=== PATIENT | male | born 1975 | race Caucasian/White ===

== ENCOUNTER 2017-03-30 18:29 | Inpatient (IN) | payer MEDICARE, MEDICAID ==
[~2017-03-30] VITALS: Ht 175.3 cm; Wt 123.2 kg
[~2017-03-30 18:29] MED LIST: ASPI325T OR; GLUC850T OR; K-TA10TA OR; LASI20TA OR; ZOCO5TAB OR; ZOLO100T OR
[2017-03-30 22:14] LABS: MEAN CORPUSCULAR HGB CONC 34.5 g/dl (32.0-36.5); MEAN CORPUSCULAR VOLUME 98.7 fl (80.0-96.0); RED CELL DISTRIBUTION WIDTH 11.8 % (11.5-14.5); WHITE BLOOD COUNT 5.5 K/mm3 (4.0-10.0)
[2017-03-30 22:32] LABS: ALBUMIN/GLOBULIN RATIO 1.48 (1.00-1.93); ALKALINE PHOSPHATASE 50 U/L (45-117); ALT/SGPT 21 U/L (12-78); ANION GAP 7 MEQ/L (8-16); AST/SGOT 12 U/L (15-37); BILIRUBIN,DIRECT 0.1 MG/DL (0.0-0.2); BILIRUBIN,TOTAL 0.5 MG/DL (0.2-1.0); BLOOD UREA NITROGEN 12 MG/DL (7-18); CALCIUM LEVEL 8.9 MG/DL (8.5-10.1); CARBON DIOXIDE LEVEL 29 MEQ/L (21-32); CHLORIDE LEVEL 107 MEQ/L (98-107); CREATININE FOR GFR 0.96 MG/DL (0.70-1.30); GLOMERULAR FILTRATION RATE > 60.0 (>60); GLUCOSE, FASTING 82 MG/DL (70-105); METHADONE URINE NEGATIVE (NEGATIVE); POTASSIUM SERUM 3.8 MEQ/L (3.5-5.1); SODIUM LEVEL 143 MEQ/L (136-145); TOTAL PROTEIN 6.7 GM/DL (6.4-8.2)
[2017-03-30 23:32] VITALS: BP 145/76
[2017-03-31] MEDS ORDERED: MOM 30ML SUSPENSION UDC PO PRN (00:15)
[2017-03-31] MEDS ORDERED: traZODone 50 MG TAB PO PRN (00:15)
[2017-03-31] MEDS ORDERED: MAALOX 30 ML SUSP *UDC PO PRN (00:15)
[2017-03-31 06:44] VITALS: BP 135/79
[2017-03-31] MEDS ORDERED: ALBUTEROL 90 MCG/ACT 8GM HFA INHALER INH PRN (08:30)
[2017-03-31] MEDS ORDERED: SERTRALINE HCL 50 MG TAB PO SCH (09:00)
--- NOTE | 2017-03-31 09:01 | HPEPDOC ---
Medical History and Physical Date of Admission Mar 30, 2017 at 22:45 History and Physical PCP: Alex GARCIA ATTENDING: Dr. Jung Morrison HPI:41yoM admitted to [facility] for Unspecified depressive disorder, being medically examined today. No acute medical complaints today. Denies any fevers, chills, weakness, fatigue, BARRIOS, CP, SOB, cough, palpitations, abdominal pain, N/V/D or changes in bowel or bladder habits. PMHx: Mood disorder anxiety depression H/O obesity with h/o weight loss BMI 36.8 H/O HTN improved with wt loss H/O DM2 improved with wt loss PSHX: upper teeth removed SOCHX: Resides in: [place] Marital Status: single Kids: none Employment: unemployed Tobacco use: denies ETOH: H/O alcohol use, states quit 1995 Illicit Drugs: H/O Xanax use, states quit 1995 IV Drug Use: Denies Tattoos done unprofessionally: Denies FAMHX: Mother: brain aneurysm Father: leukemia Siblings: 2 brothers, 1 sister Alive, h/o Cerebral palsy, HTN, DM. 1 brother Colon Ca. Children: none Unexpected deaths due to medical reasons: None. ROS: As noted in HPI, otherwise 11pt ROS of systems reviewed and remarkable only for rash Pt states in armani area, reports itching. PE: GEN: 41yoM, appears stated age. Well-nourished, well developed. No acute distress. Alert and oriented x 3. Pleasant, interactive. HEENT: Normocephalic, atraumatic. Pupils are equal, round, and reactive to light. Extraocular movements are intact. No nystagmus appreciated. Sclera are nonicteric. Conjunctiva without injection. Nose midline. Nasal turbinates without bogginess. EACs both patent BL. TMs both visualized and [place] with good cone of light, no bulging or erythema. No facial asymmetry. Moist mucous membranes. Dentition poor, upper teeth removed. Pharynx pink and moist, no cobblestoning. Neck supple, trachea midline. No lymphadenopathy or thyromegaly appreciated. CHEST: Regular rate and rhythm, +S1, +S2 LUNGS: Clear to auscultation bilaterally. No wheezes, rales, or rhonchi. Breathing appears symmetric and easy. Patient is speaking in full sentences. No accessory muscle use. ABD: Round, soft, non-tender, non-distended. +Bowel sounds throughout. No rebound or guarding. No costovertebral angle tenderness. EXT: Pulses 2+ bilaterally dorsalis pedis and radial. No lower extremity edema appreciated. SKIN: [place], dry, warm. Capillary refill <2sec. No rash or erythema in groin area noted, Pt c/o itching. NEURO: Alert and oriented x 3. Cranial nerves III-XII are intact. No focal deficits appreciated. EKG: pending. A&P: 41yoM admitted to [facility] for Unspecified depressive disorder 1. Psych. Plan per Psychiatry. Obtain baseline EKG to assure the safety of psychiatric medications as they can prolong the QT interval. 2. H/O HTN. No meds as outpt since wt loss. BP 135/79 this AM. Monitor. 3. H/O DM2. Diet controlled and improved after wt loss. FBS 82. A1c 01/20 11/07. Will update. 4. Follow up with PCP on discharge. 5. H/O Wt loss. BMI noted to be 36.8. Continue diet. 6. H/O Asthma. Albuterol 2 inhalations Q4prn. 7. Elevated TSH. Check TFTs. 8. Dermatophytosis groin. Apply nystatin powder BID as needed. 9. Antonio senior safety support manager present throughout exam. Vital Signs Vital Signs Date Time Temp Pulse Resp B/P (MAP) Pulse Ox O2 Delivery O2 Flow Rate FiO2 03/31/17 06:44 96.4 79 18 135/79 (97) 03/30/17 23:32 Room Air 03/30/17 23:16 97 Laboratory Data Labs 24H Laboratory Tests 2 03/30/17 20:27: Anion Gap 7L, Glomerular Filtration Rate > 60.0, Calcium Level 8.9, Aspartate Amino Transf (AST/SGOT) 12L, Alanine Aminotransferase (ALT/SGPT) 21, Alkaline Phosphatase 50, Total Bilirubin 0.5, Direct Bilirubin 0.1, Total Protein 6.7, Albumin 4.0, Albumin/Globulin Ratio 1.48, Thyroid Stimulating Hormone (TSH) 7.850H, Salicylates Level < 1.7L, Urine Amphetamines Screen NEGATIVE, Urine Benzodiazepines Screen NEGATIVE, Urine Opiates Screen NEGATIVE, Urine Methadone Screen NEGATIVE, Acetaminophen Level < 2.0L, Urine Barbiturates Screen NEGATIVE , Urine Phencyclidine Screen NEGATIVE, Urine Cocaine Metabolite Screen NEGATIVE , Urine Cannabinoids Screen NEGATIVE, Ethyl Alcohol Level 0.003 CBC/BMP Laboratory Tests 03/30/17 20:27 Red Blood Count 4.70, Mean Corpuscular Volume 98.7 H, Mean Corpuscular Hemoglobin 34.0 H, Mean Corpuscular Hemoglobin Concent 34.5, Red Cell Distribution Width 11.8 Home Medications No Active Prescriptions or Reported Meds Allergies Coded Allergies: No Known Allergies (Verified Allergy, 04/17/12) Chantell Degroot Mar 31, 2017 09:01
[2017-03-31] MEDS ORDERED: traZODone 100 MG TAB PO PRN (10:15)
[2017-03-31] MEDS: CitaloPRAM (CeleXA) 20 MG TAB PO SCH (10:31)
[2017-03-31] MEDS: NYSTATIN 100,000 UNITS/GM TOPICAL PWD 15 GM TOP SCH ×2 (10:31→21:00)
--- NOTE | 2017-03-31 11:21 | MHHPEPDOC ---
[facility] History & Physical History and Physical DATE OF ADMISSION: Mar 30, 2017 at 22:45 LEGAL STATUS AT ADMISSION: [facility] CHIEF COMPLAINT: "I need help and I want to get this resolved". HISTORY OF THE PRESENT ILLNESS: Patient is a 41-year-old male, who presented to the ED with complaint of increasing depression and "feeling like I'm going to have a nervous breakdown". Pt was previously a patient on [facility] in 2011. He missed several appointments and has been lost to follow up as an outpatient. He also was connected with Case Mgt Services through [facility] and has Crystal assignmed to him. He spends a month or 2 out of town on occasion and he has lost the services also. Pt made 1 previous suicide attempt in 2011 by hanging. His girlfriend at the time helped him out and was able to convince him to come to the hospital for help. Pt identifies the of his parents and especially the loss () of his brother Navi as main stressors in his life. He and Navi lived together. Navi from Cancer about 7 years ago. Bucky has neer . He has a sister and 2 brothers in the area. He has a cousin Kady who convinced him to come in for treatment this time. He identifies knowing many people in [place] and the surrounding area and has a number of friends and people he spends time with. Bucky was in Special Education when he attended public school. He completed High School by obtaining an "Independent Diploma" from [employer]. He was employed from 1998- 2000 at [employer] but "my anger issues got me fired. If I had not cursed out the boss I could still be there today." He has an apartment on [address] and lives with his 2 small dogs. Recently Bucky had a run in with the law for shoplifting at [employer]. He had a public health officer who got him a deal but Bucky did not agree with the deal since it involved going for drug treatment and Bucky was not using drugs. He admits to a previous h/o abusing alcohol and "pills". His brother Navi sough him through withdrawal from Alcohol and Bucky has not had any since 1995. He had a spiritual conversion at that time again, with his brother's help. PSYCHIATRIC REVIEW OF SYSTEMS: Affective: constricted. Anxiety: mild. Trauma: denies. Psychosis: not illicited or observed Personally: cooperative. PAST PSYCHIATRIC HISTORY: Prior Psychiatric Disorder: [facility] 2011, would like to have follow up at [facility] now as he lives in [place], pt does not want individual therapy unless it is with the psychiatrist. Admission to [facility] for depression with SI in 2011. Outpatient Treatment: as above, also [facility] case management, pt wants to continue to live independently Suicidal/Self injurious: no self-mutilation, 1 attempt at suicide by hanging 5 years ago. Psychotropic Medication History: sertraline 100 mg not effective, Trazodone 100 mg, effective ALLERGIES: Please see below. [facility] FAMILY PSYCHIATRIC HISTORY: cousin Nahum committed suicide by shotgun in 1992. Brother Navi had depression. Denies family h/o bipolar disorder, schizophrenia , anxiety or PTSD. SOCIAL HISTORY: Early Relations/development: raised by mom and dad and lived with 5 siblings, 1 has CP and is confined to a wheelchair, 1 brother due to cancer. Sibling order: Bucky is the youngest. Paternal relationships: . Education: (special ed) Occupational: unemployed. Legal: misdemeanor charges pending due to shoplifting from [employer]. Martial: single, never . Economic: unclear how he supports himself. Supports: brothers, cousin, friends. Abuse/trauma: denies. SUBSTANCE ABUSE HISTORY: pt used to consume alcohol but quit in 1995. PAST MEDICAL/SURGICAL HISTORY: pt is reporting decreased hearing in right ear weight loss of 318 lbs several years ago previously on medication for DMT2 and HTN which resolved after weight loss VITAL SIGNS: Temperature 96.4, pulse 79, respiratory rate 18, blood pressure 135 /79. MENTAL STATUS EXAMINATION: General appearance: Patient is a 41-year old male, who is bearded, medium frame , in hospital attire, dissheveled, good eye contact, cooperative. Speech: low tone and mumbles at time, can be hard to understand, spontaneous Thought processes: goal directed Thought content: appropriate Abstract reasoning and computation: concrete. Description of associations: good. Description of abnormal or psychotic thoughts: no formal thought disorder. no delusions, paranoia or obsessions, denies voices and visions. Does not have SI but was having it before admission. Judgment: fair Insight: fair Orientation: oriented x 4 Recent and remote memory: grossly intact Attention span and concentration: good. Fund of knowledge: below average. Mood: depressed Affect: constricted DIAGNOSES: Major Depressive disorder, severe, recurrent, without psychotic features. Alcohol abuse by history History of medication non-compliance r/o Grief/Bereavement ASSESSMENT: Bucky was seen in 1:1 for the purpose of completing H & P. He is assigned to my colleague, Tonia Casiano APN, who is out of the office today. He presents with flat, constricted affect, monotone voice, some sleep problems, mainly latent onset. He is reporting a depressed mood over many months , perhaps years. He was prescribed sertraline but is no longer on the medication. He has been dropped from outpatient services due to missing appointments. He appears very motivated at this time to receive treatment and to participate in outpatient med mgt. Pt did make 1 suicide attempt by hanging and his cousin completed suicide. His parents and his older brother are . He has 2 brothers who are twins and a sister in the [place] area. He has lived here all his life. It is apparent after speaking to him for a short time that he has cognitive deficits. Memory is good but his ability to problem solve is a short coming. He admits to having problems with anger and this has gotten him into trouble in the past by arguing with others and even got him fired from a good job. He would benefit from the therapeutic milieu here and though reluctant, he was asked to attend 1 a.m. and 1 p.m. group each day and listen before deciding the groups were of no use to him. He stated he remained in his room the entire time he was here in 2011 ( which was 2 days). Pt was informed that medication can only improve 50 % of his symptoms, but coping skills and talk therapy can bring improvement up closer to 100%. Pt did not want to restart Zoloft stating he believed his depression got worse on that medication. We will start Celexa 20 mg po in a.m. Pt received medication education to include risks and benefits, expected side effects of GI distress and expected duration of 7-10 days. Pt told to report any rash or SOB as he begins therapy with Celexa. Pt informed medication may take 4 weeks or longer to become effective and that is why the environment here and the groups are helpful when feeling depressed. PROBLEM LIST: 1. risk for suicide 2. Depression 3. ineffective coping INITIAL TREATMENT PLAN: 1. Patient was admitted on a Voluntary status. 2. Complete history was obtained. 3. With patients permission, family will be contacted and database will be expanded. 4. Patients medication regimen will be reviewed and changed accordingly. 5. Patient will be provided with protected environment. 6. Patient will be treated with individual, group, and milieu therapies. 7. Patient will receive supportive psych-education. 8. Discharge planning will commence immediately. 9. Outpatient follow-up treatment will be strongly recommended. 10. The initial treatment plan will focus initially on: * Depression. * Risk for suicide. * ineffective coping ESTIMATED LENGTH OF STAY: 7-10 DAYS. TIME SPENT COUNSELING AND COORDINATING INITIAL CARE: 60 minutes. Laboratory Data 24H Labs Laboratory Tests 2 03/30/17 20:27: Anion Gap 7L, Glomerular Filtration Rate > 60.0, Calcium Level 8.9, Aspartate Amino Transf (AST/SGOT) 12L, Alanine Aminotransferase (ALT/SGPT) 21, Alkaline Phosphatase 50, Total Bilirubin 0.5, Direct Bilirubin 0.1, Total Protein 6.7, Albumin 4.0, Albumin/Globulin Ratio 1.48, Thyroid Stimulating Hormone (TSH) 7.850H, Salicylates Level < 1.7L, Urine Amphetamines Screen NEGATIVE, Urine Benzodiazepines Screen NEGATIVE, Urine Opiates Screen NEGATIVE, Urine Methadone Screen NEGATIVE, Acetaminophen Level < 2.0L, Urine Barbiturates Screen NEGATIVE , Urine Phencyclidine Screen NEGATIVE, Urine Cocaine Metabolite Screen NEGATIVE , Urine Cannabinoids Screen NEGATIVE, Ethyl Alcohol Level 0.003 CBC/BMP Laboratory Tests 03/30/17 20:27 Red Blood Count 4.70, Mean Corpuscular Volume 98.7 H, Mean Corpuscular Hemoglobin 34.0 H, Mean Corpuscular Hemoglobin Concent 34.5, Red Cell Distribution Width 11.8 Medications No Active Prescriptions or Reported Meds Allergies Coded Allergies: No Known Allergies (Verified Allergy, 04/17/12) Leeann Nath Mar 31, 2017 11:21
--- NOTE | 2017-03-31 14:59 | ECGEPIP ---
Stationary ECG Study [facility] Test Date: 2017-03-31 Pat Name: DARLENE SZYMANSKI Department: Room: [place] [address] Gender: M Mail Sorting Supervisor: : 1975 Requested By: Chantell Degroot Order Number: [id number] Reading MD: Jung Tolliver Measurements Intervals [place] Rate: 77 P: 71 LA: 140 QRS: 40 QRSD: 94 T: 50 QT: 385 QTc: 437 Interpretive Statements SINUS RHYTHM Early repolarization. No prior ECG available for comparison at the time of interpretation. Electronically Signed On 03-31-2017 14:59:43 EDT by Jung Tolliver
[2017-03-31] MEDS: ACETAMINOPHEN TAB 650MG DOSE (2X325MG) PO PRN (15:01)
[2017-03-31 18:00] VITALS: BP 118/63
[2017-04-01 06:28] VITALS: BP 128/77
[2017-04-01 07:20] LABS: THYROXINE (T4) 7.9 UG/DL (4.5-12.0)
[2017-04-01] MEDS: CitaloPRAM (CeleXA) 20 MG TAB PO SCH (08:50)
[2017-04-01] MEDS: NYSTATIN 100,000 UNITS/GM TOPICAL PWD 15 GM TOP SCH ×2 (08:51→20:39)
[2017-04-01 18:00] VITALS: BP 115/73
--- NOTE | 2017-04-01 18:36 | MHIPNPDOC ---
[facility] Progress Note Progress Note DATE OF SERVICE: 04/01/17 HISTORY: Patient is a 41-year-old male who presented to the ED with complaint of increasing depression and "feeling like I'm going to have a nervous breakdown ". Pt was previously a patient on [facility] in 2011. He missed several appointments and was not compliant with outpatient treatment. Patient has reportedly been receiving case management services through [facility], notes he spends a month or 2 out of town on occasion and he has lost the services also. Pt made 1 previous suicide attempt in 2011 by hanging. Pt identifies the of his parents and especially the loss () of his brother Navi as main stressors in his life, Navi from Cancer about 7 years ago. Patient has taken Zoloft in the past, indicates medication exacerbated symptoms of depression, admitted to vice president of compliance that he has had challenges controlling anger in the past, denies experiencing at present. Patient has history of medication and treatment noncompliance. Stonemason Supervisor met with patient today to assess treatment progress on inpatient unit. Patient was recently started on Celexa which he indicates he believes is helping to reduce symptoms of anxiety and depression, rates current anxiety level as 6/10, depression 7/10, attributes symptoms to his brother recently hanging up on him and feeling "alone and isolated." Patient states he also continues to grieve the deaths of his father and brother. Patient states he took Zoloft in the past which she feels worsened his symptoms, denies medication side effects on Celexa. Patient states he is been sleeping well with trazodone, notes he has taken trazodone in the past, is requesting dose decrease today noting "100 milligrams is too much, it makes me feel a little high." Patient has been visible, states he is eating well, reports improvement in energy level and concentration and focus. Patient denies symptoms of physical pain and presents with no signs of acute distress at time of interaction. VITALS: See below NEW TEST RESULTS: 04/01/17 TSH elevated, free T4, T4, and T3 uptake within normal limits MEDICAL/SURGICAL HISTORY: History of obesity with history of weight loss, history of hypertension proved with weight loss, history of diabetes mellitus to improved with weight loss, history of asthma, upper teeth removed. Patient denies history of seizure or head injury. Patient reports decreased hearing to right ear. Labs on admission indicated elevated MCV, MCH, TSH and low anion gap, AST UDS negative 03/31/17 EKG sinus rhythm early repolarization no prior ECG available for comparison at time of interpretation. Clinical consultation soft with recommendation made for follow-up with outpatient provider, patient is asymptomatic. CURRENT MEDICATIONS: See below MENTAL STATUS EXAMINATION: General appearance: Patient is a 41-year old male, who is engageable, cooperative, makes poor eye contact, is disheveled, dressed in hospital clothing , ambulates with steady gait, appears stated age. Speech: Of normal rate and rhythm, low volume, spontaneous, difficult to understand at times Thought processes: Linear, logical, goal directed Thought content: Rational, logical, no tangentiality or paranoia noted, no perseveration Abstract reasoning and computation: Appears intact Description of associations: Intact Description of abnormal or psychotic thoughts: Patient denies suicidal and homicidal ideation, denies auditory or visual hallucinations, does not appear to be responding to internal stimuli, does not endorse bizarre or paranoid ideation, and denies preoccupation with violence or obsessions. Judgment: Poor Insight: Poor Orientation: A and O 3 Recent and remote memory: Appears intact Attention span and concentration: Within normal limits Fund of knowledge: below average, classified special ed with IEP. Mood: "I just feel bad, sad, my brother hung up on me." Patient appears anxious and depressed, no mood lability noted Affect: Blunted, congruent with mood DIAGNOSES: Major Depressive disorder, severe, recurrent, without psychotic features, rule out adjustment disorder. Alcohol use disorder by history, rule out polysubstance use disorder. Neurodevelopmental disorder. ASSESSMENT: Patient appears to be adjusting to unit, has been visible, engaging selectively, cooperative with staff, participating in groups, and has presented with no behavior management challenges. Patient has been started on Celexa and indicates medication may be helping to reduce symptoms of anxiety and depression , makes request for trazodone dose reduction due to feeling "high" on trazodone at current dose, has taken trazodone in the past and states medication works well for insomnia. Patient denies other medication side effects. Patient denies current suicidal or homicidal ideation and verbalizes awareness of how to access supportive services on the unit if needed. Patient states when prepared for discharge he would like to return home to his apartment, is refusing [facility] or other supportive housing. Patient also has APS worker and notes he has family and friends who are supportive in the area. Patient had been receiving case management and outpatient services through [facility], informs selling underwriter today he wants to be referred to a different facility at time of discharge. group sales coordinator is attempting to access background treatment information to ensure good continuity care and safe discharge planning. MANAGEMENT PLAN: Reduce trazodone to 50 mg po hs PRN insomnia. Continue Celexa 20 mg po q am Maintain safety precautions Patient to attend groups and participate in unit programming to develop coping strategies Engage patient in discharge planning process and arrange meeting with support system to ensure safe discharge planning when appropriate Patient to follow up with PCM upon discharge TIME SPENT: 35 minutes. Vital Signs Vital Signs Date Time Temp Pulse Resp B/P (MAP) Pulse Ox O2 Delivery O2 Flow Rate FiO2 04/01/17 06:28 98.1 85 18 128/77 (94) 03/30/17 23:32 Room Air 03/30/17 23:16 97 Laboratory Data 24H Labs Laboratory Tests 2 04/01/17 06:29: Estimated Mean Plasma Glucose 103, Hemoglobin A1c 5.2, Thyroid Stimulating Hormone (TSH) 4.030H, Free Thyroxine Index 2.7, Thyroxine (T4) 7.9, Triiodothyronine (T3) Uptake 34 Current Medications Current Medications Acetaminophen (Tylenol Tab) 650 mg Q6HP PRN PO HEADACHE or DISCOMFORT Last administered on 03/31/17 15:01; Start 03/31/17 at 00:15; Stop 04/30/17 at 00:14 Al Hydrox/Mg Hydrox/Simethicone (Mylanta) 30 ml Q4HP PRN PO HEARTBURN/ INDIGESTION; Start 03/31/17 at 00:15; Stop 04/30/17 at 00:14 Albuterol Sulfate (Proventil, Ventolin Hfa) 2 puff Q4HP PRN INH SHORTNESS OF BREATH; Start 03/31/17 at 08:30; Stop 04/30/17 at 08:29 Citalopram Hydrobromide (CeleXA) 20 mg QAM PO Last administered on 04/01/17 08 :50; Start 03/31/17 at 09:00; Stop 04/30/17 at 08:59 Home Med (Med Rec Complete!) ASDIRECTED XX ; Start 03/30/17 at 22:30; Stop at 22:30; Status DC Magnesium Hydroxide (Milk Of Magnesia) 30 ml DAILYPRN PRN PO CONSTIPATION; Start 03/31/17 at 00:15; Stop 04/30/17 at 00:14 Nystatin (Mycostatin Powder, Nystop) 1 dose BID TOP Last administered on 08:51; Start 03/31/17 at 09:00; Stop 04/30/17 at 08:59 Sertraline HCl (Zoloft) 50 mg QAM PO ; Start 03/31/17 at 09:00; Stop 04/30/17 at 08:59; Status Cancel Trazodone HCl (Desyrel) 50 mg QHSP PRN PO INSOMNIA; Start 03/31/17 at 00:15; Stop 04/30/17 at 00:14; Status Cancel Trazodone HCl (Desyrel) 100 mg QHS PRN PO INSOMNIA Last administered on 22:30; Start 03/31/17 at 10:15; Stop 04/30/17 at 10:14 Allergies Coded Allergies: No Known Allergies (Verified Allergy, 04/17/12) Tonia Casiano Apr 01, 2017 18:36
[2017-04-01] MEDS: ACETAMINOPHEN TAB 650MG DOSE (2X325MG) PO PRN (21:29)
[2017-04-01] MEDS: traZODone 50 MG TAB PO PRN (22:51)
[2017-04-02 06:25] VITALS: BP 112/56
[2017-04-02] MEDS: NYSTATIN 100,000 UNITS/GM TOPICAL PWD 15 GM TOP SCH ×2 (09:00→21:00)
[2017-04-02] MEDS: CitaloPRAM (CeleXA) 20 MG TAB PO SCH (09:12)
[2017-04-02] MEDS: ACETAMINOPHEN TAB 650MG DOSE (2X325MG) PO PRN (09:12)
--- NOTE | 2017-04-02 09:26 | MHIPNPDOC ---
[facility] Progress Note Progress Note DATE OF SERVICE: 04/02/17 HISTORY: Patient is a 41-year-old male who presented to the ED with complaint of increasing depression and "feeling like I'm going to have a nervous breakdown ". Pt was previously a patient on [facility] in 2011. He missed several appointments and was not compliant with outpatient treatment. Patient has reportedly been receiving case management services through [facility], notes he spends a month or 2 out of town on occasion and he has lost the services also. Pt made 1 previous suicide attempt in 2011 by hanging. Pt identifies the of his parents and especially the loss () of his brother Navi as main stressors in his life, Navi from Cancer about 7 years ago. Patient has taken Zoloft in the past, indicates medication exacerbated symptoms of depression, admitted to general duty nurse that he has had challenges controlling anger in the past, denies experiencing at present. Patient has history of medication and treatment noncompliance. Teachers Aide met with patient today to assess treatment progress on inpatient unit. Patient recently started on Celexa which he indicates he believes is helping to reduce symptoms of anxiety and depression, rates current anxiety level as 6/10, depression 8/10, attributes symptoms to his legal problems stating, "I got caught," minimizes behavior and events which led to legal problems and informs mortgage loan underwriter that he feels his legal charges were handled unfairly. Patient reiterates today he took Zoloft in the past which was ineffective, denies medication side effects on Celexa. Patient makes requests today for PRN anxiolytic to address intermittent symptoms of anxiety, indicates recent dose reduction to trazodone has eliminated side effect of medication and is effective. Patient denies medication side effects. Patient states he continues to sleep well with trazodone, denies nightmares symptoms. Patient remains visible, states he is eating well, indicates his energy level and concentration and focus are reduce today. Patient presents with no signs of acute distress at time of interaction. VITALS: See below NEW TEST RESULTS: 04/02/17 repeat labs indicated elevated MCV, MCH, carbon dioxide, and chloride and low anion gap, AST, and total bilirubin MEDICAL/SURGICAL HISTORY: History of obesity with history of weight loss, history of hypertension proved with weight loss, history of diabetes mellitus to improved with weight loss, history of asthma, upper teeth removed. Patient denies history of seizure or head injury. Patient reports decreased hearing to right ear. Labs on admission indicated elevated MCV, MCH, TSH and low anion gap, AST UDS negative 03/31/17 EKG sinus rhythm early repolarization no prior ECG available for comparison at time of interpretation. Clinical consultation soft with recommendation made for follow-up with outpatient provider, patient is asymptomatic. 04/02/17 vascular ultrasound - No evidence of deep venous thrombosis of the bilateral lower extremity femoral popliteal venous system. Completed due to LE pain reported by patient, PA is monitoring. CURRENT MEDICATIONS: See below MENTAL STATUS EXAMINATION: General appearance: Patient is a 41-year old male, who is engageable, cooperative, makes limited eye contact, remains disheveled, dressed in hospital clothing, ambulates with steady gait, appears stated age. Speech: Of normal rate and rhythm, low volume, spontaneous, mumbles and is difficult to understand at times Thought processes: Linear, logical, goal directed Thought content: Rational, logical, no tangentiality or paranoia noted, no perseveration Abstract reasoning and computation: Appears intact Description of associations: Intact Description of abnormal or psychotic thoughts: Patient denies suicidal and homicidal ideation, denies auditory or visual hallucinations, does not appear to be responding to internal stimuli, does not endorse bizarre or paranoid ideation, and denies preoccupation with violence or obsessions. Judgment: Poor Insight: Poor Orientation: A and O 3 Recent and remote memory: Appears intact Attention span and concentration: Within normal limits Fund of knowledge: below average, classified special ed with IEP. Mood: "I just feel sad sometimes, I'm not really sure why. I think I discharge to soon the last time I was here." Patient appears anxious and depressed, no mood lability noted Affect: Blunted, congruent with mood DIAGNOSES: Major Depressive disorder, severe, recurrent, without psychotic features, rule out adjustment disorder. Alcohol use disorder by history, rule out polysubstance use disorder. Neurodevelopmental disorder. ASSESSMENT: Patient appears to be adjusting to unit, has been visible, engaging selectively, cooperative with staff, participating in groups, and has presented with no behavior management challenges. Patient is observed to be interacting with peers at times, is isolative at other times. Patient reiterates today he stopped taking psychotropic medications approximately 2 years ago, has been started on Celexa and indicates medication may be helping to reduce symptoms of anxiety and depression, indicates trazodone at current dose is effective, makes request for PRN anxiolytic in effort to reduce intermittent symptoms of anxiety. Patient denies medication side effects. Patient denies current suicidal or homicidal ideation and verbalizes awareness of how to access supportive services on the unit if needed. Patient states when prepared for discharge he may stay with cousin for period of time, notes would eventually like to return home to his apartment, is refusing TLS or other supportive housing. Patient also has APS worker and notes he has family and friends who are supportive in the area. Patient had been receiving case management and outpatient services through [facility]. regional sales coordinator continues to attempt to coordinate discharge needs with outpatient providers to ensure good continuity care and safe discharge planning. MANAGEMENT PLAN: Continue trazodone 50 mg po hs PRN insomnia and Celexa 20 mg po q am. Initiate hydroxyzine 50 mg po q 6 hours PRN for anxiety. Maintain safety precautions Patient to attend groups and participate in unit programming to develop coping strategies Engage patient in discharge planning process and arrange meeting with support system to ensure safe discharge planning when appropriate Patient to follow up with PCM upon discharge TIME SPENT: 35 minutes. Vital Signs Vital Signs Date Time Temp Pulse Resp B/P (MAP) Pulse Ox O2 Delivery O2 Flow Rate FiO2 04/02/17 06:25 98.4 101 16 112/56 (74) 03/30/17 23:32 Room Air 03/30/17 23:16 97 Current Medications Current Medications Acetaminophen (Tylenol Tab) 650 mg Q6HP PRN PO HEADACHE or DISCOMFORT Last administered on 04/02/17 09:12; Start 03/31/17 at 00:15; Stop 04/30/17 at 00:14 Al Hydrox/Mg Hydrox/Simethicone (Mylanta) 30 ml Q4HP PRN PO HEARTBURN/ INDIGESTION; Start 03/31/17 at 00:15; Stop 04/30/17 at 00:14 Albuterol Sulfate (Proventil, Ventolin Hfa) 2 puff Q4HP PRN INH SHORTNESS OF BREATH; Start 03/31/17 at 08:30; Stop 04/30/17 at 08:29 Citalopram Hydrobromide (CeleXA) 20 mg QAM PO Last administered on 04/02/17 09 :12; Start 03/31/17 at 09:00; Stop 04/30/17 at 08:59 Home Med (Med Rec Complete!) ASDIRECTED XX ; Start 03/30/17 at 22:30; Stop at 22:30; Status DC Magnesium Hydroxide (Milk Of Magnesia) 30 ml DAILYPRN PRN PO CONSTIPATION; Start 03/31/17 at 00:15; Stop 04/30/17 at 00:14 Nystatin (Mycostatin Powder, Nystop) 1 dose BID TOP Last administered on 08:51; Start 03/31/17 at 09:00; Stop 04/30/17 at 08:59 Sertraline HCl (Zoloft) 50 mg QAM PO ; Start 03/31/17 at 09:00; Stop 04/30/17 at 08:59; Status Cancel Trazodone HCl (Desyrel) 50 mg QHS PRN PO INSOMNIA Last administered on 22:51; Start 04/01/17 at 19:15; Stop 05/01/17 at 19:14 Trazodone HCl (Desyrel) 50 mg QHSP PRN PO INSOMNIA; Start 03/31/17 at 00:15; Stop 04/30/17 at 00:14; Status Cancel Trazodone HCl (Desyrel) 100 mg QHS PRN PO INSOMNIA Last administered on 22:30; Start 03/31/17 at 10:15; Stop 04/01/17 at 19:03; Status DC Allergies Coded Allergies: No Known Allergies (Verified Allergy, 04/17/12) Tonia Casiano Apr 02, 2017 09:26
[2017-04-02 10:50] LABS: MEAN CORPUSCULAR HEMOGLOBIN 33.6 pg (27.0-33.0); MEAN CORPUSCULAR HGB CONC 34.5 g/dl (32.0-36.5); MEAN CORPUSCULAR VOLUME 97.4 fl (80.0-96.0); RED CELL DISTRIBUTION WIDTH 12.2 % (11.5-14.5); WHITE BLOOD COUNT 4.9 K/mm3 (4.0-10.0)
[2017-04-02 11:33] LABS: ALBUMIN 3.4 GM/DL (3.2-5.2); ALBUMIN/GLOBULIN RATIO 1.26 (1.00-1.93); ALKALINE PHOSPHATASE 45 U/L (45-117); ALT/SGPT 21 U/L (12-78); ANION GAP 3 MEQ/L (8-16); AST/SGOT 12 U/L (15-37); BILIRUBIN,TOTAL 0.3 MG/DL (0.2-1.0); BLOOD UREA NITROGEN 14 MG/DL (7-18); CALCIUM LEVEL 8.8 MG/DL (8.5-10.1); CARBON DIOXIDE LEVEL 33 MEQ/L (21-32); CHLORIDE LEVEL 108 MEQ/L (98-107); CREATININE FOR GFR 0.94 MG/DL (0.70-1.30); GLOMERULAR FILTRATION RATE > 60.0 (>60); GLUCOSE, FASTING 99 MG/DL (70-105); POTASSIUM SERUM 4.6 MEQ/L (3.5-5.1); SODIUM LEVEL 144 MEQ/L (136-145); TOTAL PROTEIN 6.1 GM/DL (6.4-8.2); URIC ACID 5.6 MG/DL (3.5-7.2)
--- NOTE | 2017-04-02 12:22 | IPNPDOC ---
Subjective Date Seen The patient was seen on 04/02/17. Subjective Chief Complaint/HPI The patient is a 41-year-old male admitted with a reason for visit of Unspecified Depressive Disorder. Events since last encounter Requested to evaluate Pt in regards to LE pain. Pt states he has had pain in the past related to gout. He does not take any medication currently for gout. Denies LBP, PATIENT SERVICE TECHNICIAN PST. No weakness, paresthesia in LEs. Denies joint pain, swelling, erythema. No rash. No specific area where he has pain. Constitutional: Denies: Chills, Fever ENT: Denies: Head Aches, Ear Pain, Dysphagia Pulmonary: Denies: Dyspnea, Cough Cardiovascular: Denies: Chest Pain, Palpitations, Orthopnea, Paroxysmal Noc. Dyspnea, Lt Headedness Gastrointestinal: Denies: Nausea, Vomiting, Abdominal Pain, Diarrhea, Constipation Genitourinary: Denies: Dysuria, Frequency, Incontinence, Retention Objective Physical Examination General Exam: Positive: Alert, No Acute Distress ENT Exam: Positive: Atraumatic, Mucous membr. moist/pink, Pharynx Normal Chest Exam: Positive: Clear to auscultation, Normal air movement Heart Exam: Positive: Rate Normal, Regular Rhythm, Normal S1, Normal S2, Negative: Murmurs, Rubs Abdomen Exam: Positive: Normal bowel sounds, Soft, Negative: Tenderness, Hepatospenomegaly Extremity Exam: Positive: Normal pulses, Other (there is no apparent rash, area of TTP, joint discomfort, calf tenderness, cording noted. No erythema. ), Negative: Clubbing, Cyanosis, Edema, Tenderness, Swelling Skin Exam: Positive: Nl turgor and temperature Neuro Exam: Positive: Normal Gait Assessment /Plan Problems (1) Lower extremity pain Problem Text: * Update labs, CBC/CMP * check Uric acid. * Check LE U/S B/L. * tylenol as needed. * Monitor. Plan/VTE VTE Prophylaxis Ordered?: No (ambulatory) VS, I&O, 24H, Fishbone Vital Signs/I&O Vital Signs Date Time Temp Pulse Resp B/P (MAP) Pulse Ox O2 Delivery O2 Flow Rate FiO2 04/02/17 06:25 98.4 101 16 112/56 (74) 03/30/17 23:32 Room Air 03/30/17 23:16 97 Laboratory Data 24H LABS Laboratory Tests 2 04/02/17 10:27: Anion Gap 3L, Glomerular Filtration Rate > 60.0, Blood Urea Nitrogen 14, Creatinine 0.94, Sodium Level 144, Potassium Level 4.6#, Chloride Level 108H, Carbon Dioxide Level 33H, Calcium Level 8.8, Aspartate Amino Transf (AST/SGOT) 12L, Alanine Aminotransferase (ALT/SGPT) 21, Alkaline Phosphatase 45, Total Bilirubin 0.3, Uric Acid 5.6, Total Protein 6.1L, Albumin 3.4, Albumin/Globulin Ratio 1.26 CBC/BMP Laboratory Tests 04/02/17 10:27 Red Blood Count 4.39, Mean Corpuscular Volume 97.4 H, Mean Corpuscular Hemoglobin 33.6 H, Mean Corpuscular Hemoglobin Concent 34.5, Red Cell Distribution Width 12.2, Calcium Level 8.8, Aspartate Amino Transf (AST/SGOT) 12 L, Alanine Aminotransferase (ALT/SGPT) 21, Alkaline Phosphatase 45, Total Bilirubin 0.3, Uric Acid 5.6, Total Protein 6.1 L, Albumin 3.4 Chantell Degroot Apr 02, 2017 12:22
--- NOTE | 2017-04-02 12:29 | REP ---
Bilateral lower extremity Duplex Doppler venous ultrasound: Real time compression and duplex Doppler interrogation of the bilateral lower extremity deep venous system is performed. Bilaterally, the common femoral, superficial femoral and popliteal veins are fully compressible with transducer pressure and demonstrate normal spontaneous and phasic flow, without evidence of deep venous thrombosis. Impression: No evidence of deep venous thrombosis of the bilateral lower extremity femoral popliteal venous system. Signed by Seferino Victor MD 04/02/2017 12:20 P
[2017-04-02 18:00] VITALS: BP 127/76
[2017-04-02] MEDS ORDERED: hydrOXYzine 50 MG TAB PO PRN (18:45)
[2017-04-02] MEDS: traZODone 50 MG TAB PO PRN (22:16)
[2017-04-03] MEDS: ACETAMINOPHEN TAB 650MG DOSE (2X325MG) PO PRN ×3 (04:46→21:28)
[2017-04-03 06:55] VITALS: BP 132/75
[2017-04-03] MEDS: CitaloPRAM (CeleXA) 20 MG TAB PO SCH (08:21)
[2017-04-03] MEDS: NYSTATIN 100,000 UNITS/GM TOPICAL PWD 15 GM TOP SCH ×2 (08:51→21:00)
--- NOTE | 2017-04-03 08:57 | MHIPNPDOC ---
[facility] Progress Note Progress Note DATE OF SERVICE: 04/03/17 HISTORY: Patient is a 41-year-old male who presented to the ED with complaint of increasing depression and "feeling like I'm going to have a nervous breakdown ". Pt was previously a patient on [facility] in 2011. He missed several appointments and was not compliant with outpatient treatment. Patient has reportedly been receiving case management services through [facility], notes he spends a month or 2 out of town on occasion and he has lost the services also. Pt made 1 previous suicide attempt in 2011 by hanging. Pt identifies the of his parents and especially the loss () of his brother Navi as main stressors in his life, Navi from Cancer about 7 years ago. Patient has taken Zoloft in the past, indicates medication exacerbated symptoms of depression, admitted to marketing reps sports and entertainment that he has had challenges controlling anger in the past, denies experiencing at present. Patient has history of medication and treatment noncompliance. Branch Library Clerk met with patient today to assess treatment progress on inpatient unit. Patient recently started on Celexa which he indicates he believes is helping to reduce symptoms of anxiety and depression, rates current anxiety level as 0/10 noting "it's fine right now but it gets worse during the day," depression 7/10, denies suicidal and homicidal ideation, notes last experienced suicidal ideation 5 years ago, denies having suicidal ideation at time of admission. Patient denies experiencing auditory or visual hallucinations, denies urge to engage in self-injurious behavior. Patient denies irritability, agitation, impulsivity, and mood lability. Patient has utilized hydroxyzine PRN to address intermittent symptoms of anxiety, indicates medication is causing fatigue, declines dosing reduction and request that medication be discontinued. Patient has been utilizing trazodone for sleep with good effect reported and denies experiencing other medication side effects. Patient continues to minimize behavior and events which led to legal problems, reiterates he feels legal charges were handled unfairly, verbalizes awareness of court date scheduled for today and states "I don't know" when asked how he feels about current legal situation. Patient states he continues to sleep well with trazodone, denies nightmares symptoms. Patient remains visible, states he is eating well, indicates his energy level and concentration are stabilizing. Vascular ultrasound has been completed due to patient report of pain to lower extremity and PA is addressing with patient. Patient presents with no signs of acute distress at time of interaction. VITALS: See below NEW TEST RESULTS: 04/02/17 repeat labs indicated elevated MCV, MCH, carbon dioxide, and chloride and low anion gap, AST, and total bilirubin MEDICAL/SURGICAL HISTORY: History of obesity with history of weight loss, history of hypertension proved with weight loss, history of diabetes mellitus to improved with weight loss, history of asthma, upper teeth removed. Patient denies history of seizure or head injury. Patient reports decreased hearing to right ear. Labs on admission indicated elevated MCV, MCH, TSH and low anion gap, AST UDS negative 03/31/17 EKG sinus rhythm early repolarization no prior ECG available for comparison at time of interpretation. Clinical consultation soft with recommendation made for follow-up with outpatient provider, patient is asymptomatic. 04/02/17 vascular ultrasound - No evidence of deep venous thrombosis of the bilateral lower extremity femoral popliteal venous system. Completed due to LE pain reported by patient, PA is monitoring. CURRENT MEDICATIONS: See below MENTAL STATUS EXAMINATION: General appearance: Patient is a 41-year old male, who is engageable, evasive but cooperative, makes limited eye contact, remains disheveled, dressed in hospital clothing, ambulates with steady gait, appears stated age. Speech: Of normal rate and rhythm, low volume, spontaneous, mumbles and is difficult to understand at times Thought processes: Linear, logical, goal directed Thought content: Rational, logical, no tangentiality or paranoia noted, no perseveration Abstract reasoning and computation: Appears intact Description of associations: Intact Description of abnormal or psychotic thoughts: Patient denies suicidal and homicidal ideation, denies auditory or visual hallucinations, does not appear to be responding to internal stimuli, does not endorse bizarre or paranoid ideation, and denies preoccupation with violence or obsessions. Judgment: Poor Insight: Poor Orientation: A and O 3 Recent and remote memory: Appears intact Attention span and concentration: Within normal limits Fund of knowledge: Limited, classified special ed with IEP. Mood: "I'm still sad but may be a little less anxious. I don't want to make the same mistake of being discharged too soon again." Patient appears less anxious and depressed, no mood lability noted Affect: Blunted, but brightens 1, congruent with mood DIAGNOSES: Major Depressive disorder, severe, recurrent, without psychotic features, rule out adjustment disorder. Alcohol use disorder by history, rule out polysubstance use disorder. Neurodevelopmental disorder. ASSESSMENT: Patient is adjusting to unit, has been visible, engaging selectively , cooperative with staff, participating in groups, and has presented with no behavior management challenges. Patient is observed to be interacting with peers at times, is isolative at other times. Patient reiterates today he stopped taking psychotropic medications (Zoloft) approximately 2 years ago, has been started on Celexa and indicates medication is helping to reduce symptoms of anxiety and depression, indicates trazodone at current dose is effective, makes request for discontinuation of PRN anxiolytic due to symptoms of sedation , declines dosing adjustment and denies need for new PRN anxiolytic medication trial. Patient denies medication side effects. Patient denies current suicidal or homicidal ideation and verbalizes awareness of how to access supportive services on the unit if needed. Patient states when prepared for discharge he may stay with cousin for period of time, notes would eventually like to return home to his apartment, is refusing TLS or other supportive housing. Patient also has APS worker and notes he has family and friends who are supportive in the area. Patient had been receiving case management and outpatient services through [facility]. dental patient coordinator continues to attempt to coordinate discharge needs with outpatient providers to ensure good continuity care and safe discharge planning. MANAGEMENT PLAN: Discontinue hydroxyzine 50 mg po q 6 hours PRN for anxiety. Continue trazodone 50 mg po hs PRN insomnia and Celexa 20 mg po q am. Maintain safety precautions Patient to attend groups and participate in unit programming to develop coping strategies Engage patient in discharge planning process and arrange meeting with support system to ensure safe discharge planning when appropriate Patient to follow up with PCM upon discharge TIME SPENT: 35 minutes. Vital Signs Vital Signs Date Time Temp Pulse Resp B/P (MAP) Pulse Ox O2 Delivery O2 Flow Rate FiO2 04/03/17 06:55 97.8 82 16 132/75 (94) 03/30/17 23:32 Room Air 03/30/17 23:16 97 Laboratory Data 24H Labs Laboratory Tests 2 04/02/17 10:27: Anion Gap 3L, Glomerular Filtration Rate > 60.0, Blood Urea Nitrogen 14, Creatinine 0.94, Sodium Level 144, Potassium Level 4.6#, Chloride Level 108H, Carbon Dioxide Level 33H, Calcium Level 8.8, Aspartate Amino Transf (AST/SGOT) 12L, Alanine Aminotransferase (ALT/SGPT) 21, Alkaline Phosphatase 45, Total Bilirubin 0.3, Uric Acid 5.6, Total Protein 6.1L, Albumin 3.4, Albumin/Globulin Ratio 1.26 CBC/BMP Laboratory Tests 04/02/17 10:27 Red Blood Count 4.39, Mean Corpuscular Volume 97.4 H, Mean Corpuscular Hemoglobin 33.6 H, Mean Corpuscular Hemoglobin Concent 34.5, Red Cell Distribution Width 12.2, Calcium Level 8.8, Aspartate Amino Transf (AST/SGOT) 12 L, Alanine Aminotransferase (ALT/SGPT) 21, Alkaline Phosphatase 45, Total Bilirubin 0.3, Uric Acid 5.6, Total Protein 6.1 L, Albumin 3.4 Current Medications Current Medications Acetaminophen (Tylenol Tab) 650 mg Q6HP PRN PO HEADACHE or DISCOMFORT Last administered on 04/03/17 04:46; Start 03/31/17 at 00:15; Stop 04/30/17 at 00:14 Al Hydrox/Mg Hydrox/Simethicone (Mylanta) 30 ml Q4HP PRN PO HEARTBURN/ INDIGESTION; Start 03/31/17 at 00:15; Stop 04/30/17 at 00:14 Albuterol Sulfate (Proventil, Ventolin Hfa) 2 puff Q4HP PRN INH SHORTNESS OF BREATH; Start 03/31/17 at 08:30; Stop 04/30/17 at 08:29 Citalopram Hydrobromide (CeleXA) 20 mg QAM PO Last administered on 04/03/17 08 :21; Start 03/31/17 at 09:00; Stop 04/30/17 at 08:59 Home Med (Med Rec Complete!) ASDIRECTED XX ; Start 03/30/17 at 22:30; Stop at 22:30; Status DC Hydroxyzine HCl (Atarax) 50 mg Q6HP PRN PO ANXIETY Last administered on 08:21; Start 04/02/17 at 18:45; Stop 05/02/17 at 18:44 Magnesium Hydroxide (Milk Of Magnesia) 30 ml DAILYPRN PRN PO CONSTIPATION; Start 03/31/17 at 00:15; Stop 04/30/17 at 00:14 Nystatin (Mycostatin Powder, Nystop) 1 dose BID TOP Last administered on 08:51; Start 03/31/17 at 09:00; Stop 04/30/17 at 08:59 Sertraline HCl (Zoloft) 50 mg QAM PO ; Start 03/31/17 at 09:00; Stop 04/30/17 at 08:59; Status Cancel Trazodone HCl (Desyrel) 50 mg QHS PRN PO INSOMNIA Last administered on 22:16; Start 04/01/17 at 19:15; Stop 05/01/17 at 19:14 Trazodone HCl (Desyrel) 50 mg QHSP PRN PO INSOMNIA; Start 03/31/17 at 00:15; Stop 04/30/17 at 00:14; Status Cancel Trazodone HCl (Desyrel) 100 mg QHS PRN PO INSOMNIA Last administered on 22:30; Start 03/31/17 at 10:15; Stop 04/01/17 at 19:03; Status DC Allergies Coded Allergies: No Known Allergies (Verified Allergy, 04/17/12) Tonia Casiano Apr 03, 2017 08:57
[2017-04-03 18:00] VITALS: BP 129/73
[2017-04-03] MEDS: traZODone 50 MG TAB PO PRN (22:47)
[2017-04-04 07:29] VITALS: BP 131/76
[2017-04-04] MEDS: CitaloPRAM (CeleXA) 20 MG TAB PO SCH (08:07)
[2017-04-04] MEDS: NYSTATIN 100,000 UNITS/GM TOPICAL PWD 15 GM TOP SCH ×2 (08:07→21:00)
--- NOTE | 2017-04-04 09:22 | MHIPNPDOC ---
[facility] Progress Note Progress Note DATE OF SERVICE: 04/04/17 HISTORY: Patient is a 41-year-old male who presented to the ED with complaint of increasing depression and "feeling like I'm going to have a nervous breakdown ". Pt was previously a patient on [facility] in 2011. He missed several appointments and was not compliant with outpatient treatment. Patient has reportedly been receiving case management services through [facility], notes he spends a month or 2 out of town on occasion and he has lost the services also. Pt made 1 previous suicide attempt in 2012 by hanging. Pt identifies the of his parents and especially the loss () of his brother Navi as main stressors in his life, Navi from Cancer about 7 years ago. Patient has taken Zoloft in the past, indicates medication exacerbated symptoms of depression, admitted to script artist that he has had challenges controlling anger in the past, denies experiencing at present. Patient has history of medication and treatment noncompliance. Copier Technician met with patient today to assess treatment progress on inpatient unit. Patient indicates Celexa may be helping to reduce symptoms of anxiety and depression, rates current anxiety level as 2/10, depression 7/10, denies suicidal and homicidal ideation, notes last experienced suicidal ideation 5 years ago, and continues to deny having suicidal ideation at time of admission. Patient denies experiencing auditory or visual hallucinations, denies urge to engage in self-injurious behavior. Patient denies irritability, agitation, impulsivity, and mood lability. Patient and race and sports book writer spoke today regarding anger management, patient indicates he does have a history of sometimes becoming angry , denies aggression, is agreeable to trialing hydroxyzine PRN at lower dose in effort to address symptoms of anger when needed and avoid causing sedation. Patient has been utilizing trazodone for sleep with good effect reported and denies experiencing other medication side effects. Patient continues to minimize behavior and events which led to legal problems, reiterates he feels legal charges were handled unfairly, verbalizes awareness of court date yesterday for [place] larceny charges and notes he does not know outcome, has not heard from sports attorney. Patient states he continues to sleep well with trazodone, denies nightmares symptoms. Patient remains visible, states he is eating well, indicates his energy level and concentration are stabilizing. Patient reports 5/ 10 bilateral leg pain, is addressing symptoms of pain with nursing. Vascular ultrasound has been completed due to patient report of pain to lower extremity and PA is addressing with patient. Patient presents with no signs of acute distress at time of interaction. VITALS: See below NEW TEST RESULTS: 04/02/17 repeat labs indicated elevated MCV, MCH, carbon dioxide, and chloride and low anion gap, AST, and total bilirubin MEDICAL/SURGICAL HISTORY: History of obesity with history of weight loss, history of hypertension proved with weight loss, history of diabetes mellitus to improved with weight loss, history of asthma, upper teeth removed. Patient denies history of seizure or head injury. Patient reports decreased hearing to right ear. Labs on admission indicated elevated MCV, MCH, TSH and low anion gap, AST UDS negative 03/31/17 EKG sinus rhythm early repolarization no prior ECG available for comparison at time of interpretation. Clinical consultation soft with recommendation made for follow-up with outpatient provider, patient is asymptomatic. 04/02/17 vascular ultrasound - No evidence of deep venous thrombosis of the bilateral lower extremity femoral popliteal venous system. Completed due to LE pain reported by patient, PA is monitoring. CURRENT MEDICATIONS: See below MENTAL STATUS EXAMINATION: General appearance: Patient is a 41-year old male, who is engageable, remains evasive but cooperative, makes improved eye contact, remains disheveled, dressed in hospital clothing, ambulates with steady gait, appears stated age. Speech: Of normal rate and rhythm, low volume, spontaneous, mumbles and is difficult to understand at times Thought processes: Linear, logical, goal directed Thought content: Rational, logical, no tangentiality or paranoia noted, no perseveration Abstract reasoning and computation: Appears intact Description of associations: Intact Description of abnormal or psychotic thoughts: Patient denies suicidal and homicidal ideation, denies auditory or visual hallucinations, does not appear to be responding to internal stimuli, does not endorse bizarre or paranoid ideation, and denies preoccupation with violence or obsessions. Judgment: Poor Insight: Poor Orientation: A and O 3 Recent and remote memory: Appears intact Attention span and concentration: Within normal limits Fund of knowledge: Limited, classified special ed with IEP. Mood: "I'm still sad sometimes and I don't want to discharge to soon this time like I did last time I was here." Patient appears less anxious and depressed, no mood lability noted Affect: Blunted, but brightens 2, congruent with mood DIAGNOSES: Major Depressive disorder, severe, recurrent, without psychotic features, rule out adjustment disorder. Alcohol use disorder by history, rule out polysubstance use disorder. Neurodevelopmental disorder. ASSESSMENT: Patient is adjusting to unit, has been visible, engaging selectively , cooperative with staff, participating in groups, and has presented with no behavior management challenges. Patient is observed to be interacting with peers at times, is isolative at other times. Patient reiterates today he stopped taking psychotropic medications (Zoloft) approximately 2 years ago, started Celexa and is today agreeable to dose increase in effort to continue to address symptoms of anxiety and depression, indicates trazodone at current dose is effective. Patient confirms that he does at times experience anger, denies aggression, is agreeable to hydroxyzine PRN trial in effort to address symptoms of anger when they arise, has declined anger management education. Patient denies medication side effects. Will increase Celexa and will restart hydroxyzine at lower dose so as to avoid symptoms of sedation and will prescribe PRN so that patient may utilize medication at times when he is feeling angry. Patient denies current suicidal or homicidal ideation and verbalizes awareness of how to access supportive services on the unit if needed. Patient states when prepared for discharge he plans to stay with cousin for period of time, notes would eventually like to return home to his apartment , is refusing TLS or other supportive housing. Patient also has APS worker and notes he has family and friends who are supportive in the area. Patient had been receiving case management and outpatient services through [facility]. sales appointment coordinator continues to attempt to coordinate discharge needs with outpatient providers to ensure good continuity care and safe discharge planning. MANAGEMENT PLAN: Increase Celexa to 30 mg po q am. Initiate hydroxyzine 25 mg po q 6 hours PRN for anxiety/agitation. Continue trazodone 50 mg po hs PRN insomnia. Maintain safety precautions Patient to attend groups and participate in unit programming to develop coping strategies Engage patient in discharge planning process and arrange meeting with support system to ensure safe discharge planning when appropriate Patient to follow up with PCM upon discharge TIME SPENT: 35 minutes. Vital Signs Vital Signs Date Time Temp Pulse Resp B/P (MAP) Pulse Ox O2 Delivery O2 Flow Rate FiO2 04/04/17 07:29 98.2 94 18 131/76 (94) Room Air 7/9/17 23:16 97 Current Medications Current Medications Acetaminophen (Tylenol Tab) 650 mg Q6HP PRN PO HEADACHE or DISCOMFORT Last administered on 04/03/17 21:28; Start 03/31/17 at 00:15; Stop 04/30/17 at 00:14 Al Hydrox/Mg Hydrox/Simethicone (Mylanta) 30 ml Q4HP PRN PO HEARTBURN/ INDIGESTION; Start 03/31/17 at 00:15; Stop 04/30/17 at 00:14 Albuterol Sulfate (Proventil, Ventolin Hfa) 2 puff Q4HP PRN INH SHORTNESS OF BREATH; Start 03/31/17 at 08:30; Stop 04/30/17 at 08:29 Citalopram Hydrobromide (CeleXA) 20 mg QAM PO Last administered on 04/04/17 08 :07; Start 03/31/17 at 09:00; Stop 04/30/17 at 08:59 Home Med (Med Rec Complete!) ASDIRECTED XX ; Start 03/30/17 at 22:30; Stop at 22:30; Status DC Hydroxyzine HCl (Atarax) 50 mg Q6HP PRN PO ANXIETY Last administered on 08:21; Start 04/02/17 at 18:45; Stop 04/03/17 at 11:13; Status DC Magnesium Hydroxide (Milk Of Magnesia) 30 ml DAILYPRN PRN PO CONSTIPATION; Start 03/31/17 at 00:15; Stop 04/30/17 at 00:14 Nystatin (Mycostatin Powder, Nystop) 1 dose BID TOP Last administered on 08:51; Start 03/31/17 at 09:00; Stop 04/30/17 at 08:59 Sertraline HCl (Zoloft) 50 mg QAM PO ; Start 03/31/17 at 09:00; Stop 04/30/17 at 08:59; Status Cancel Trazodone HCl (Desyrel) 50 mg QHS PRN PO INSOMNIA Last administered on 22:47; Start 04/01/17 at 19:15; Stop 05/01/17 at 19:14 Trazodone HCl (Desyrel) 50 mg QHSP PRN PO INSOMNIA; Start 03/31/17 at 00:15; Stop 04/30/17 at 00:14; Status Cancel Trazodone HCl (Desyrel) 100 mg QHS PRN PO INSOMNIA Last administered on t 22:30; Start 03/31/17 at 10:15; Stop 04/01/17 at 19:03; Status DC Allergies Coded Allergies: No Known Allergies (Verified Allergy, 04/17/12) Tonia Casiano Apr 04, 2017 09:22
[2017-04-04] MEDS: hydrOXYzine 25 MG TAB PO PRN (17:59)
[2017-04-04 18:00] VITALS: BP 129/72
[2017-04-04] MEDS: ACETAMINOPHEN TAB 650MG DOSE (2X325MG) PO PRN (21:36)
[2017-04-04] MEDS: traZODone 50 MG TAB PO PRN (21:51)
[2017-04-05 06:30] VITALS: BP 129/77
[2017-04-05] MEDS: CitaloPRAM (CeleXA) 10 MG TABLET PO SCH (08:42)
[2017-04-05] MEDS: NYSTATIN 100,000 UNITS/GM TOPICAL PWD 15 GM TOP SCH ×2 (08:42→21:00)
[2017-04-05 18:00] VITALS: BP 133/76
[2017-04-05] MEDS: traZODone 50 MG TAB PO PRN (22:49)
[2017-04-05] MEDS: hydrOXYzine 25 MG TAB PO PRN (22:49)
[2017-04-06] MEDS: ACETAMINOPHEN TAB 650MG DOSE (2X325MG) PO PRN (04:08)
[2017-04-06 06:26] VITALS: BP 127/83
[2017-04-06] MEDS: NYSTATIN 100,000 UNITS/GM TOPICAL PWD 15 GM TOP SCH ×2 (08:36→21:00)
[2017-04-06] MEDS: hydrOXYzine 25 MG TAB PO PRN (08:37)
[2017-04-06] MEDS: CitaloPRAM (CeleXA) 10 MG TABLET PO SCH (08:38)
[2017-04-06] MEDS ORDERED: hydrOXYzine 50 MG TAB PO PRN (09:15)
[2017-04-06 18:00] VITALS: BP 122/80
[2017-04-06] MEDS: traZODone 50 MG TAB PO PRN (22:13)
[2017-04-07] MEDS: ACETAMINOPHEN TAB 650MG DOSE (2X325MG) PO PRN (05:27)
[2017-04-07 06:00] VITALS: BP 134/80
[2017-04-07] MEDS: NYSTATIN 100,000 UNITS/GM TOPICAL PWD 15 GM TOP SCH ×2 (08:43→21:00)
[2017-04-07] MEDS: CitaloPRAM (CeleXA) 10 MG TABLET PO SCH (08:44)
--- NOTE | 2017-04-07 09:42 | MHIPNPDOC ---
[facility] Progress Note Progress Note DATE OF SERVICE: 04/07/17 HISTORY: Patient is a 41-year-old male who presented to the ED with complaint of increasing depression and "feeling like I'm going to have a nervous breakdown ". Pt was previously a patient on [facility] in 2011. He missed several appointments and was not compliant with outpatient treatment. Patient has reportedly been receiving case management services through [facility], notes he spends a month or 2 out of town on occasion and he has lost the services also. Pt made 1 previous suicide attempt in 2012 by hanging. Pt identifies the of his parents and especially the loss () of his brother Navi as main stressors in his life, Navi from Cancer about 7 years ago. Patient has taken Zoloft in the past, indicates medication exacerbated symptoms of depression, admitted to network technical analyst that he has had challenges controlling anger in the past, denies experiencing at present. Patient has history of medication and treatment noncompliance. Apple Press Operator met with patient today to assess treatment progress on inpatient unit. Patient indicates Celexa is helping to reduce symptoms of anxiety and depression , rates current anxiety level as 6/10, depression 6/10, denies suicidal and homicidal ideation, notes last experienced suicidal ideation 5 years ago, and continues to deny having suicidal ideation at time of admission. Patient denies experiencing auditory or visual hallucinations, denies urge to engage in self- injurious behavior. Patient denies irritability, agitation, impulsivity, and mood lability, but notes over weekend got into verbal disagreement over subject of cancer in group setting. Patient and typewriter tester spoke again today regarding anger management, patient indicates he does have a history of sometimes becoming angry, denies aggression, states hydroxyzine PRN is ineffective and makes request for new PRN medication trial. Patient states he was able to walk away from conflict, maintain behavioral control and regain composure quickly. Patient has been utilizing trazodone for sleep with good effect reported and denies experiencing other medication side effects. Patient continues to minimize behavior and events which led to legal problems, reiterates he feels legal charges were handled unfairly, remains evasive regarding details, states he has not heard from trial attorney. Patient states he continues to sleep well with trazodone, denies nightmares symptoms. Patient remains visible, states he is eating well, indicates his energy level and concentration are stabilizing. Patient reports 4/10 bilateral leg pain, is addressing symptoms of pain with nursing. Vascular ultrasound has been completed due to patient report of pain to lower extremity and PA is addressing with patient. Patient presents with no signs of acute distress at time of interaction. VITALS: See below NEW TEST RESULTS: 04/02/17 repeat labs indicated elevated MCV, MCH, carbon dioxide, and chloride and low anion gap, AST, and total bilirubin MEDICAL/SURGICAL HISTORY: History of obesity with history of weight loss, history of hypertension proved with weight loss, history of diabetes mellitus to improved with weight loss, history of asthma, upper teeth removed. Patient denies history of seizure or head injury. Patient reports decreased hearing to right ear. Labs on admission indicated elevated MCV, MCH, TSH and low anion gap, AST UDS negative 03/31/17 EKG sinus rhythm early repolarization no prior ECG available for comparison at time of interpretation. Clinical consultation soft with recommendation made for follow-up with outpatient provider, patient is asymptomatic. 04/02/17 vascular ultrasound - No evidence of deep venous thrombosis of the bilateral lower extremity femoral popliteal venous system. Completed due to LE pain reported by patient, PA is monitoring. CURRENT MEDICATIONS: See below MENTAL STATUS EXAMINATION: General appearance: Patient is a 41-year old male, who is engageable, remains evasive but cooperative, makes improved eye contact, remains disheveled, dressed in hospital clothing, ambulates with steady gait, appears stated age. Speech: Of normal rate and rhythm, low volume, spontaneous, mumbles and is difficult to understand at times Thought processes: Linear, logical, goal directed Thought content: Rational, logical, no tangentiality or paranoia noted, no perseveration Abstract reasoning and computation: Appears intact Description of associations: Intact Description of abnormal or psychotic thoughts: Patient denies suicidal and homicidal ideation, denies auditory or visual hallucinations, does not appear to be responding to internal stimuli, does not endorse bizarre or paranoid ideation, and denies preoccupation with violence or obsessions. Judgment: Limited Insight: Limited Orientation: A and O 3 Recent and remote memory: Appears intact Attention span and concentration: Within normal limits Fund of knowledge: Limited, classified special ed with IEP. Mood: "I'm still sad sometimes and I don't want to discharge too soon this time like I did last time." Patient appears less anxious and depressed, no mood lability noted Affect: Blunted, but brightens 2, expresses humor at times, congruent with mood DIAGNOSES: Major Depressive disorder, severe, recurrent, without psychotic features, rule out adjustment disorder. Alcohol use disorder by history, rule out polysubstance use disorder. Neurodevelopmental disorder. ASSESSMENT: Patient is adjusting to unit, has been visible, engaging selectively , cooperative with staff, participating in groups, and has presented with no behavior management challenges. Patient is observed to be interacting with peers at times, is isolative at other times. Patient reiterates today he stopped taking psychotropic medications (Zoloft) approximately 2 years ago, started Celexa, notes recent dose increase is helpful, indicates trazodone at current dose is effective. Patient confirms that he does at times experience anger, denies aggression, is agreeable to hydroxyzine PRN trial in effort to address symptoms of anger when they arise, has declined anger management education. Patient denies medication side effects. Will continue Celexa, discontinue hydroxyzine and initiate trial of seroquel PRN to address intermittent symptoms of anger/anxiety. Patient denies current suicidal or homicidal ideation and verbalizes awareness of how to access supportive services on the unit if needed. Patient states when prepared for discharge he plans to stay with cousin for period of time, notes would eventually like to return home to his apartment, is refusing TLS or other supportive housing. Patient also has APS worker and notes he has family and friends who are supportive in the area. Patient had been receiving case management and outpatient services through [facility]. background check coordinator continues to attempt to coordinate discharge needs with outpatient providers to ensure good continuity care and safe discharge planning. MANAGEMENT PLAN: Continue Celexa 30 mg po q am. Discontinue hydroxyzine 25 mg po q 6 hours PRN for anxiety/agitation. Continue trazodone 50 mg po hs PRN insomnia. Initiate seroquel 25 mg po q 6 hours PRN anxiety/agitation Maintain safety precautions Patient to attend groups and participate in unit programming to develop coping strategies Engage patient in discharge planning process and arrange meeting with support system to ensure safe discharge planning when appropriate Patient to follow up with PCM upon discharge TIME SPENT: 35 minutes Vital Signs Vital Signs Date Time Temp Pulse Resp B/P (MAP) Pulse Ox O2 Delivery O2 Flow Rate FiO2 04/07/17 06:00 97.7 80 16 134/80 (98) 04/04/17 18:00 Room Air Current Medications Current Medications Acetaminophen (Tylenol Tab) 650 mg Q6HP PRN PO HEADACHE or DISCOMFORT Last administered on 04/07/17 05:27; Start 03/31/17 at 00:15; Stop 04/30/17 at 00:14 Al Hydrox/Mg Hydrox/Simethicone (Mylanta) 30 ml Q4HP PRN PO HEARTBURN/ INDIGESTION; Start 03/31/17 at 00:15; Stop 04/30/17 at 00:14 Albuterol Sulfate (Proventil, Ventolin Hfa) 2 puff Q4HP PRN INH SHORTNESS OF BREATH; Start 03/31/17 at 08:30; Stop 04/30/17 at 08:29 Citalopram Hydrobromide (CeleXA) 20 mg QAM PO Last administered on 04/04/17 08 :07; Start 03/31/17 at 09:00; Stop 04/04/17 at 15:23; Status DC Citalopram Hydrobromide (CeleXA) 30 mg QAM PO Last administered on 04/07/17 08 :44; Start 04/05/17 at 09:00; Stop 05/05/17 at 08:59 Home Med (Med Rec Complete!) ASDIRECTED XX ; Start 03/30/17 at 22:30; Stop at 22:30; Status DC Hydroxyzine HCl (Atarax) 25 mg Q6HP PRN PO ANXIETY/AGITATION Last administered on 04/06/17 08:37; Start 04/04/17 at 15:30; Stop 04/06/17 at 09:07; Status DC Hydroxyzine HCl (Atarax) 50 mg Q6HP PRN PO ANXIETY Last administered on 08:21; Start 04/02/17 at 18:45; Stop 04/03/17 at 11:13; Status DC Hydroxyzine HCl (Atarax) 50 mg Q6HP PRN PO ITCHING Last administered on 08:44; Start 04/06/17 at 09:15; Stop 05/06/17 at 09:14 Magnesium Hydroxide (Milk Of Magnesia) 30 ml DAILYPRN PRN PO CONSTIPATION; Start 03/31/17 at 00:15; Stop 04/30/17 at 00:14 Nystatin (Mycostatin Powder, Nystop) 1 dose BID TOP Last administered on 08:51; Start 03/31/17 at 09:00; Stop 04/30/17 at 08:59 Sertraline HCl (Zoloft) 50 mg QAM PO ; Start 03/31/17 at 09:00; Stop 04/30/17 at 08:59; Status Cancel Trazodone HCl (Desyrel) 50 mg QHS PRN PO INSOMNIA Last administered on 22:13; Start 04/01/17 at 19:15; Stop 05/01/17 at 19:14 Trazodone HCl (Desyrel) 50 mg QHSP PRN PO INSOMNIA; Start 03/31/17 at 00:15; Stop 04/30/17 at 00:14; Status Cancel Trazodone HCl (Desyrel) 100 mg QHS PRN PO INSOMNIA Last administered on 22:30; Start 03/31/17 at 10:15; Stop 04/01/17 at 19:03; Status DC Allergies Coded Allergies: No Known Allergies (Verified Allergy, 04/17/12) Tonia Casiano Apr 07, 2017 09:42
[2017-04-07 18:00] VITALS: BP 130/72
[2017-04-07] MEDS: traZODone 50 MG TAB PO PRN (22:31)
[2017-04-08] MEDS: ACETAMINOPHEN TAB 650MG DOSE (2X325MG) PO PRN (04:32)
[2017-04-08 06:37] VITALS: BP 135/84
[2017-04-08] MEDS: CitaloPRAM (CeleXA) 10 MG TABLET PO SCH (08:27)
[2017-04-08] MEDS: NYSTATIN 100,000 UNITS/GM TOPICAL PWD 15 GM TOP SCH ×2 (08:28→20:07)
[2017-04-08] MEDS: QUEtiapine FUMARATE 25 MG TAB PO PRN (13:24)
--- NOTE | 2017-04-08 14:54 | MHIPNPDOC ---
[facility] Progress Note Progress Note DATE OF SERVICE: 04/08/17 HISTORY: Patient is a 41-year-old male who presented to the ED with complaint of increasing depression and "feeling like I'm going to have a nervous breakdown ". Pt was [facility] a [facility]. He missed several appointments and was not compliant with outpatient treatment. Patient has reportedly been receiving case management services through [facility], notes he spends a month or 2 out of town on occasion and he has lost the services also. Pt made 1 previous suicide attempt in 2012 by hanging. Pt identifies the of his parents and especially the loss () of his brother Navi as main stressors in his life, Navi from Cancer about 7 years ago. Patient has taken Zoloft in the past, indicates medication exacerbated symptoms of depression, admitted to improvement lead that he has had challenges controlling anger in the past, denies experiencing at present. Patient has history of medication and treatment noncompliance. Hand Shoe Cutter met with patient today to assess treatment progress on inpatient unit. Patient notes little difference in symptoms from yesterday, indicates he believes Celexa is helping to reduce symptoms of anxiety and depression, rates current anxiety level as 6/10, depression 6/10, denies suicidal and homicidal ideation, reiterates he has not experienced suicidal ideation since 5 years ago , and continues to deny having suicidal ideation at time of admission. Patient denies experiencing auditory or visual hallucinations, denies urge to engage in self-injurious behavior. Patient denies irritability, agitation, impulsivity, and mood lability at time of interaction, asks if new Seroquel PRN has been made available to him, was reminded medication change was made yesterday, patient indicates he has not needed to utilize Seroquel PRN because he has not been experiencing anxiety/agitation. Patient and health underwriter spoke again today regarding anger management, patient states he is now willing to attend anger management training, reiterates he has a history of becoming angry, denies history of aggression. Patient indicates he remains able to walk away from conflict, maintain behavioral control, and regain composure quickly, agrees to notify staff if he is having personality conflict on unit. Patient continues to utilize trazodone for sleep with good effect reported, denies nightmares. Patient denies experiencing medication side effects. Patient continues to minimize behavior and events which led to legal problems, is evasive regarding legal charges, reiterates he feels legal charges have been handled unfairly. Patient remains visible, states he is eating well, indicates his energy level and concentration are stabilizing. Patient makes no report of physical pain at time of interaction, is aware he may address pain symptoms with nursing. Patient presents with no signs of acute distress at time of interaction. VITALS: See below NEW TEST RESULTS: 04/02/17 repeat labs indicated elevated MCV, MCH, carbon dioxide, and chloride and low anion gap, AST, and total bilirubin MEDICAL/SURGICAL HISTORY: History of obesity with history of weight loss, history of hypertension proved with weight loss, history of diabetes mellitus to improved with weight loss, history of asthma, upper teeth removed. Patient denies history of seizure or head injury. Patient reports decreased hearing to right ear. Labs on admission indicated elevated MCV, MCH, TSH and low anion gap, AST UDS negative 03/31/17 EKG sinus rhythm early repolarization no prior ECG available for comparison at time of interpretation. Clinical consultation soft with recommendation made for follow-up with outpatient provider, patient is asymptomatic. 04/02/17 vascular ultrasound - No evidence of deep venous thrombosis of the bilateral lower extremity femoral popliteal venous system. Completed due to LE pain reported by patient, PA is monitoring. CURRENT MEDICATIONS: See below MENTAL STATUS EXAMINATION: General appearance: Patient is a 41-year old male, who is engageable, remains evasive but cooperative, makes improved eye contact, exhibited adequate personal hygiene, dressed in hospital clothing, ambulates with steady gait, appears stated age. Speech: Of normal rate and rhythm, low volume, spontaneous, mumbles and is difficult to understand at times Thought processes: Linear, logical, goal directed Thought content: Rational, logical, no tangentiality or paranoia noted, no perseveration Abstract reasoning and computation: Appears intact Description of associations: Intact Description of abnormal or psychotic thoughts: Patient denies suicidal and homicidal ideation, denies auditory or visual hallucinations, does not appear to be responding to internal stimuli, does not endorse bizarre or paranoid ideation, and denies preoccupation with violence or obsessions. Judgment: Fair, some improvement noted Insight: Limited Orientation: A and O 3 Recent and remote memory: Appears intact Attention span and concentration: Within normal limits Fund of knowledge: Limited, classified special ed with IEP. Mood: "I'm okay, I just want to make sure I don't leave too soon like I did last time." Patient appears less anxious and depressed, no mood lability noted Affect: Blunted, but brightens 3, expresses humor at times, congruent with mood DIAGNOSES: Major Depressive disorder, severe, recurrent, without psychotic features, rule out adjustment disorder. Alcohol use disorder by history, rule out polysubstance use disorder. Neurodevelopmental disorder. ASSESSMENT: Patient is adjusting to unit, has been visible, engaging selectively , cooperative with staff, participating in groups, and has presented with no behavior management challenges. Patient is observed to be interacting well with peers. Patient notes he believes recent dose increase is helpful, indicates trazodone at current dose is effective, had not trialed Seroquel PRN at time of interaction citing lack of need. Patient reiterates that he does at times experience anger, denies aggression, yesterday requested discontinuation of hydroxyzine and initiation of Seroquel PRN trial in effort to address symptoms of anger when they arise, is today agreeable to anger management education. Patient denies medication side effects. Will continue current medication regimen. Patient denies current suicidal or homicidal ideation and verbalizes awareness of how to access supportive services on the unit if needed. Patient states when prepared for discharge he plans to stay with cousin for period of time, notes would eventually like to return home to his apartment, is refusing TLS or other supportive housing. Patient also has APS worker and notes he has family and friends who are supportive in the area. Patient had also been receiving case management and outpatient services through [facility]. coordinator of online programs will request anger management training and will continue to attempt to coordinate discharge needs with outpatient providers to ensure good continuity care and safe discharge planning. MANAGEMENT PLAN: Continue Celexa 30 mg po q am, trazodone 50 mg po hs PRN insomnia, and seroquel 25 mg po q 6 hours PRN anxiety/agitation Maintain safety precautions Patient to attend groups and participate in unit programming to develop coping strategies Engage patient in discharge planning process and arrange meeting with support system to ensure safe discharge planning when appropriate Patient to follow up with PCM upon discharge Patient to participate in outpatient anger management training TIME SPENT: 25 minutes Vital Signs Vital Signs Date Time Temp Pulse Resp B/P (MAP) Pulse Ox O2 Delivery O2 Flow Rate FiO2 04/08/17 06:37 96.8 73 18 135/84 (101) 04/04/17 18:00 Room Air Current Medications Current Medications Acetaminophen (Tylenol Tab) 650 mg Q6HP PRN PO HEADACHE or DISCOMFORT Last administered on 04/08/17 04:32; Start 03/31/17 at 00:15; Stop 04/30/17 at 00:14 Al Hydrox/Mg Hydrox/Simethicone (Mylanta) 30 ml Q4HP PRN PO HEARTBURN/ INDIGESTION; Start 03/31/17 at 00:15; Stop 04/30/17 at 00:14 Albuterol Sulfate (Proventil, Ventolin Hfa) 2 puff Q4HP PRN INH SHORTNESS OF BREATH; Start 03/31/17 at 08:30; Stop 04/30/17 at 08:29 Citalopram Hydrobromide (CeleXA) 20 mg QAM PO Last administered on 04/04/17 08 :07; Start 03/31/17 at 09:00; Stop 04/04/17 at 15:23; Status DC Citalopram Hydrobromide (CeleXA) 30 mg QAM PO Last administered on 04/08/17 08 :27; Start 04/05/17 at 09:00; Stop 05/05/17 at 08:59 Home Med (Med Rec Complete!) ASDIRECTED XX ; Start 03/30/17 at 22:30; Stop at 22:30; Status DC Hydroxyzine HCl (Atarax) 25 mg Q6HP PRN PO ANXIETY/AGITATION Last administered on 04/06/17 08:37; Start 04/04/17 at 15:30; Stop 04/06/17 at 09:07; Status DC Hydroxyzine HCl (Atarax) 50 mg Q6HP PRN PO ANXIETY Last administered on 08:21; Start 04/02/17 at 18:45; Stop 04/03/17 at 11:13; Status DC Hydroxyzine HCl (Atarax) 50 mg Q6HP PRN PO ITCHING Last administered on 08:44; Start 04/06/17 at 09:15; Stop 04/07/17 at 13:42; Status DC Magnesium Hydroxide (Milk Of Magnesia) 30 ml DAILYPRN PRN PO CONSTIPATION; Start 03/31/17 at 00:15; Stop 04/30/17 at 00:14 Nystatin (Mycostatin Powder, Nystop) 1 dose BID TOP Last administered on 08:51; Start 03/31/17 at 09:00; Stop 04/30/17 at 08:59 Quetiapine Fumarate (SEROquel) 25 mg Q6HP PRN PO anxiety/agitation Last administered on 04/08/17 13:24; Start 04/07/17 at 13:45; Stop 05/07/17 at 13:44 Sertraline HCl (Zoloft) 50 mg QAM PO ; Start 03/31/17 at 09:00; Stop 04/30/17 at 08:59; Status Cancel Trazodone HCl (Desyrel) 50 mg QHS PRN PO INSOMNIA Last administered on 22:31; Start 04/01/17 at 19:15; Stop 05/01/17 at 19:14 Trazodone HCl (Desyrel) 50 mg QHSP PRN PO INSOMNIA; Start 03/31/17 at 00:15; Stop 04/30/17 at 00:14; Status Cancel Trazodone HCl (Desyrel) 100 mg QHS PRN PO INSOMNIA Last administered on 22:30; Start 03/31/17 at 10:15; Stop 04/01/17 at 19:03; Status DC Allergies Coded Allergies: No Known Allergies (Verified Allergy, 04/17/12) Tonia Casiano Apr 08, 2017 14:54
[2017-04-08 18:00] VITALS: BP 101/52
[2017-04-08] MEDS: traZODone 50 MG TAB PO PRN (22:12)
[2017-04-09] MEDS: ACETAMINOPHEN TAB 650MG DOSE (2X325MG) PO PRN ×2 (03:41→17:40)
[2017-04-09 06:34] VITALS: BP 122/62
[2017-04-09 06:35] VITALS: BP 122/62
[2017-04-09] MEDS: CitaloPRAM (CeleXA) 10 MG TABLET PO SCH (08:31)
[2017-04-09] MEDS: NYSTATIN 100,000 UNITS/GM TOPICAL PWD 15 GM TOP SCH ×2 (08:32→21:00)
--- NOTE | 2017-04-09 09:41 | MHIPNPDOC ---
[facility] Progress Note Progress Note DATE OF SERVICE: 04/09/17 HISTORY: Patient is a 41-year-old male who presented to the ED with complaint of increasing depression and "feeling like I'm going to have a nervous breakdown ". Pt was previously a patient on [facility] in 2011. He missed several appointments and was not compliant with outpatient treatment. Patient has reportedly been receiving case management services through [facility], notes he spends a month or 2 out of town on occasion and he has lost the services also. Pt made 1 previous suicide attempt in 2012 by hanging. Pt identifies the of his parents and especially the loss () of his brother Navi as main stressors in his life, Navi from Cancer about 7 years ago. Patient has taken Zoloft in the past, indicates medication exacerbated symptoms of depression, admitted to street inspector that he has had challenges controlling anger in the past, denies experiencing at present. Patient has history of medication and treatment noncompliance. Mining Teacher met with patient today to assess treatment progress on inpatient unit. Patient states today he does not feel Celexa is working as well as it was, is agreeable to dose increase, denies medication side effects. Patient has utilized Seroquel PRN 1 to address symptoms of anxiety/agitation, indicates medication was effective, however, verbalizes concerns about sleep and the potential for agitation after discharge. Patient again denies history of physical aggression and states he would like to trial standing Seroquel dose in effort to improve sleep and mood and reduce likelihood of intermittent agitation. Patient denies medication side effects. Patient rates current anxiety level as 6/10, depression 6/10, denies suicidal and homicidal ideation, denies auditory and visual hallucinations, denies urge to engage in self- injurious behavior. Patient states he is "nervous" about discharge, expresses concerns about "having to go back to dealing with the real world." Patient is voluntary admission, becomes noticeably anxious when health underwriter broaches subject of discharge at end of the week. Patient agrees to let health underwriter know if he feels prepared for discharge on Friday. Patient denies symptoms of irritability, agitation, impulsivity, and mood lability, reiterates today he is now willing to participate in anger management training, also reiterates he is able to walk with conflicts, maintain behavioral control, and regain composure quickly. Patient continues to agree to notify staff if he is experiencing personality conflict on unit. Patient reports decrease in sleep, states he is eating well and indicates energy level and concentration and focus are normal. Patient remains evasive regarding legal charges but today does speak openly about anxiety he is experiencing related to discharge, indicates he plans to stay with his cousin for a period of time before returning to his home. Patient makes no report of physical pain and presents with no signs of acute distress at time of interaction. VITALS: See below NEW TEST RESULTS: 04/02/17 repeat labs indicated elevated MCV, MCH, carbon dioxide, and chloride and low anion gap, AST, and total bilirubin MEDICAL/SURGICAL HISTORY: History of obesity with history of weight loss, history of hypertension proved with weight loss, history of diabetes mellitus to improved with weight loss, history of asthma, upper teeth removed. Patient denies history of seizure or head injury. Patient reports decreased hearing to right ear. Labs on admission indicated elevated MCV, MCH, TSH and low anion gap, AST UDS negative 03/31/17 EKG sinus rhythm early repolarization no prior ECG available for comparison at time of interpretation. Clinical consultation soft with recommendation made for follow-up with outpatient provider, patient is asymptomatic. 04/02/17 vascular ultrasound - No evidence of deep venous thrombosis of the bilateral lower extremity femoral popliteal venous system. Completed due to LE pain reported by patient, PA is monitoring. CURRENT MEDICATIONS: See below MENTAL STATUS EXAMINATION: General appearance: Patient is a 41-year old male, who is engageable, remains evasive but cooperative, makes improved eye contact, exhibited adequate personal hygiene, dressed in hospital clothing, ambulates with steady gait, appears stated age. Speech: Of normal rate and rhythm, and improve volume, spontaneous, mumbles and is difficult to understand at times Thought processes: Linear, logical, goal directed Thought content: Rational, logical, no tangentiality or paranoia noted, no perseveration Abstract reasoning and computation: Appears intact Description of associations: Intact Description of abnormal or psychotic thoughts: Patient denies suicidal and homicidal ideation, denies auditory or visual hallucinations, does not appear to be responding to internal stimuli, does not endorse bizarre or paranoid ideation, and denies preoccupation with violence or obsessions. Judgment: Fair, some improvement noted Insight: Fair, some improvement noted Orientation: A and O 3 Recent and remote memory: Appears intact Attention span and concentration: Within normal limits Fund of knowledge: Limited, classified special ed with IEP. Mood: "I'm stabilizing, I might be ready to discharge at the end of the week, or maybe Friday, we'll just have to see." Patient appears less anxious and depressed, no mood lability noted Affect: Blunted, but brightens, expresses humor at times, congruent with mood DIAGNOSES: Major Depressive disorder, severe, recurrent, without psychotic features, rule out adjustment disorder. Alcohol use disorder by history, rule out polysubstance use disorder. Neurodevelopmental disorder. ASSESSMENT: Patient continues to adjust to unit, remains visible, engages selectively with staff and peers, remains cooperative with staff, is participating in groups, and has presented with no behavior management challenges. Patient is observed to be interacting well with peers. Patient is agreeable to Celexa dose increase today in effort to further reduce to symptoms of anxiety and depression, is requesting standing Seroquel dose trial in effort to better manage intermittent agitation, and improve mood and sleep, reiterates today he is agreeable to anger management education. Patient denies medication side effects. Will discontinue trazodone and initiate Seroquel 100 mg hs, and will continue low-dose Seroquel PRN to address intermittent symptoms of anxiety/ agitation if needed. Patient denies current suicidal or homicidal ideation and verbalizes awareness of how to access supportive services on the unit if needed. Patient states when prepared for discharge he plans to stay with cousin for period of time, notes would eventually like to return home to his apartment , is refusing TLS or other supportive housing. Patient also has APS worker and notes he has family and friends who are supportive in the area. Patient had also been receiving case management and outpatient services through [facility]. fitness and wellness coordinator will request anger management training and will continue to attempt to coordinate discharge needs with outpatient providers to ensure good continuity care and safe discharge planning. MANAGEMENT PLAN: Increase Celexa to 40 mg po q am. Discontinue trazodone 50 mg po hs PRN insomnia. Initiate Seroquel 100 mg po q hs. Continue Seroquel 25 mg po q 6 hours PRN anxiety/agitation Maintain safety precautions Patient to attend groups and participate in unit programming to develop coping strategies Engage patient in discharge planning process and arrange meeting with support system to ensure safe discharge planning when appropriate Patient to follow up with PCM upon discharge Patient to participate in outpatient anger management training TIME SPENT: 35 minutes Vital Signs Vital Signs Date Time Temp Pulse Resp B/P (MAP) Pulse Ox O2 Delivery O2 Flow Rate FiO2 04/09/17 06:35 97.9 87 18 122/62 (82) Room Air Current Medications Current Medications Acetaminophen (Tylenol Tab) 650 mg Q6HP PRN PO HEADACHE or DISCOMFORT Last administered on 04/09/17 03:41; Start 03/31/17 at 00:15; Stop 04/30/17 at 00:14 Al Hydrox/Mg Hydrox/Simethicone (Mylanta) 30 ml Q4HP PRN PO HEARTBURN/ INDIGESTION; Start 03/31/17 at 00:15; Stop 04/30/17 at 00:14 Albuterol Sulfate (Proventil, Ventolin Hfa) 2 puff Q4HP PRN INH SHORTNESS OF BREATH; Start 03/31/17 at 08:30; Stop 04/30/17 at 08:29 Citalopram Hydrobromide (CeleXA) 20 mg QAM PO Last administered on 04/04/17 08 :07; Start 03/31/17 at 09:00; Stop 04/04/17 at 15:23; Status DC Citalopram Hydrobromide (CeleXA) 30 mg QAM PO Last administered on 04/09/17 08 :31; Start 04/05/17 at 09:00; Stop 05/05/17 at 08:59 Home Med (Med Rec Complete!) ASDIRECTED XX ; Start 03/30/17 at 22:30; Stop at 22:30; Status DC Hydroxyzine HCl (Atarax) 25 mg Q6HP PRN PO ANXIETY/AGITATION Last administered on 04/06/17 08:37; Start 04/04/17 at 15:30; Stop 04/06/17 at 09:07; Status DC Hydroxyzine HCl (Atarax) 50 mg Q6HP PRN PO ANXIETY Last administered on 08:21; Start 04/02/17 at 18:45; Stop 04/03/17 at 11:13; Status DC Hydroxyzine HCl (Atarax) 50 mg Q6HP PRN PO ITCHING Last administered on 08:44; Start 04/06/17 at 09:15; Stop 04/07/17 at 13:42; Status DC Magnesium Hydroxide (Milk Of Magnesia) 30 ml DAILYPRN PRN PO CONSTIPATION; Start 03/31/17 at 00:15; Stop 04/30/17 at 00:14 Nystatin (Mycostatin Powder, Nystop) 1 dose BID TOP Last administered on 08:51; Start 03/31/17 at 09:00; Stop 04/30/17 at 08:59 Quetiapine Fumarate (SEROquel) 25 mg Q6HP PRN PO anxiety/agitation Last administered on 04/08/17 13:24; Start 04/07/17 at 13:45; Stop 05/07/17 at 13:44 Sertraline HCl (Zoloft) 50 mg QAM PO ; Start 03/31/17 at 09:00; Stop 04/30/17 at 08:59; Status Cancel Trazodone HCl (Desyrel) 50 mg QHS PRN PO INSOMNIA Last administered on 22:12; Start 04/01/17 at 19:15; Stop 05/01/17 at 19:14 Trazodone HCl (Desyrel) 50 mg QHSP PRN PO INSOMNIA; Start 03/31/17 at 00:15; Stop 04/30/17 at 00:14; Status Cancel Trazodone HCl (Desyrel) 100 mg QHS PRN PO INSOMNIA Last administered on 22:30; Start 03/31/17 at 10:15; Stop 04/01/17 at 19:03; Status DC Allergies Coded Allergies: No Known Allergies (Verified Allergy, 04/17/12) Tonia Casiano Apr 09, 2017 09:41
[2017-04-09] MEDS ORDERED: CitaloPRAM (CeleXA) 10 MG TABLET PO ONE (11:30)
[2017-04-09 18:15] VITALS: BP 120/66
[2017-04-09] MEDS: QUEtiapine FUMARATE 100 MG TAB PO SCH (22:43)
[2017-04-10] MEDS: ACETAMINOPHEN TAB 650MG DOSE (2X325MG) PO PRN (05:38)
[2017-04-10 07:08] VITALS: BP 126/74
[2017-04-10] MEDS: CitaloPRAM (CeleXA) 20 MG TAB PO SCH (08:59)
[2017-04-10] MEDS: NYSTATIN 100,000 UNITS/GM TOPICAL PWD 15 GM TOP SCH ×2 (09:00→21:00)
--- NOTE | 2017-04-10 15:04 | MHIPNPDOC ---
[facility] Progress Note Progress Note DATE OF SERVICE: 04/10/17 HISTORY: Patient is a 41-year-old male who presented to the ED with complaint of increasing depression and "feeling like I'm going to have a nervous breakdown ". Pt was previously a patient on [facility] in 2011. He missed several appointments and was not compliant with outpatient treatment. Patient has reportedly been receiving case management services through [facility], notes he spends a month or 2 out of town on occasion and he has lost the services also. Pt made 1 previous suicide attempt in 2012 by hanging. Pt identifies the of his parents and especially the loss () of his brother Navi as main stressors in his life, Navi from Cancer about 7 years ago. Patient has taken Zoloft in the past, indicates medication exacerbated symptoms of depression, admitted to electrical systems drafter that he has had challenges controlling anger in the past, denies experiencing at present. Patient has history of medication and treatment noncompliance. Certified Mortician met with patient today to assess treatment progress on inpatient unit. Patient states today he feels increase in Celexa dose and addition of hs Seroquel are helping to improve mood and reduce symptoms of anxiety and depression. Patient has not needed to utilize PRN Seroquel today, indicates he was experiencing irritability this morning but was able to work through symptoms without the use of medication. When asked if medications are helpful patient states, "the medications are definitely helping me feel better, I just don't feel quite ready to go home yet." Patient expresses fear and concern related to discharge tomorrow, informs clinical writer he wants to discharge on Friday in order to give himself more time to adjust to recent changes to medications. Patient denies medication side effects. Patient reports improvement to sleep, denies nightmares symptoms. Patient relates current anxiety level as 4/10, depression 4/10, denies suicidal and homicidal ideation, denies auditory and visual hallucinations, denies urge to engage in self-injurious behavior. Patient is voluntary admission, becomes noticeably anxious when clinical writer broaches subject of discharge which was scheduled for end of the week, becomes noticeably more relaxed when informed that he may elect to stay until Friday he feels he needs more time to adjust medications. Patient denies symptoms of irritability, agitation, impulsivity, and mood lability, reiterates today he is now willing to participate in anger management training, also reiterates he is able to walk away from conflicts, maintain behavioral control and regain composure quickly. Patient continues to agree to notify staff if he is experiencing personality conflict. Patient states he is eating well and indicates energy level and concentration and focus are normal. Patient remains evasive regarding legal charges but today speaks openly about concerns he has pertaining to another upcoming court date, eating to get high school social studies teacher paperwork in order, and appearing to follow-up with outpatient treatment. Patient reiterates today that he plans to stay with his cousin for a period of time before returning to his home. Patient makes no report of physical pain and presents with no signs of acute distress at time of interaction. VITALS: See below NEW TEST RESULTS: 04/02/17 repeated labs indicated elevated MCV, MCH, carbon dioxide, and chloride and low anion gap, AST, and total bilirubin MEDICAL/SURGICAL HISTORY: History of obesity with history of weight loss, history of hypertension proved with weight loss, history of diabetes mellitus to improved with weight loss, history of asthma, upper teeth removed. Patient denies history of seizure or head injury. Patient reports decreased hearing to right ear. Labs on admission indicated elevated MCV, MCH, TSH and low anion gap, AST UDS negative 03/31/17 EKG sinus rhythm early repolarization no prior ECG available for comparison at time of interpretation. Clinical consultation soft with recommendation made for follow-up with outpatient provider, patient is asymptomatic. 04/02/17 vascular ultrasound - No evidence of deep venous thrombosis of the bilateral lower extremity femoral popliteal venous system. Completed due to LE pain reported by patient, PA is monitoring. CURRENT MEDICATIONS: See below MENTAL STATUS EXAMINATION: General appearance: Patient is a 41-year old male, who is engageable, remains evasive but cooperative, makes improved eye contact, exhibited adequate personal hygiene, dressed in hospital clothing, ambulates with steady gait, appears stated age. Speech: Of normal rate and rhythm, and improve volume, spontaneous, coherent Thought processes: Linear, logical, goal directed Thought content: Rational, logical, no tangentiality or paranoia noted, no perseveration Abstract reasoning and computation: Appears intact Description of associations: Intact Description of abnormal or psychotic thoughts: Patient denies suicidal and homicidal ideation, denies auditory or visual hallucinations, does not appear to be responding to internal stimuli, does not endorse bizarre or paranoid ideation, and denies preoccupation with violence or obsessions. Judgment: Fair, some improvement noted Insight: Fair, some improvement noted Orientation: A and O 3 Recent and remote memory: Appears intact Attention span and concentration: Within normal limits Fund of knowledge: Limited, classified special ed with IEP. Mood: "I'm definitely getting better, but are not can be ready to go into Friday." Patient reports improvement in symptoms of anxiety and depressed, no mood lability noted Affect: Constricted, and brightens at times, expresses humor at times, congruent with mood DIAGNOSES: Major Depressive disorder, severe, recurrent, without psychotic features, rule out adjustment disorder. Alcohol use disorder by history, rule out polysubstance use disorder. Neurodevelopmental disorder. ASSESSMENT: Patient continues to adjust to unit, remains visible, engages selectively with staff and peers, remains cooperative with staff, is participating in groups, and has presented with no behavior management challenges. Patient is observed to be interacting well with peers. Patient indicates recent dose increase to Celexa and addition of hs Seroquel are resulting in improved symptoms, denies medication side effects. Patient denies symptoms of irritability, agitation, impulsivity, and mood lability at time of interaction. Patient remains in agreement with anger management training post discharge. Will continue low-dose Seroquel PRN to address intermittent symptoms of anxiety/ agitation if needed. Patient denies current suicidal or homicidal ideation and verbalizes awareness of how to access supportive services on the unit if needed. Patient states when prepared for discharge he plans to stay with cousin for period of time, notes would eventually like to return home to his apartment , is refusing [facility] or other supportive housing. Patient also has APS worker who was on unit to be with him today worker, adds he has family and friends who are supportive in the area. Patient had also been receiving case management and outpatient services through [facility]. applications coordinator will request anger management training and will continue to attempt to coordinate discharge needs with outpatient providers to ensure good continuity care and safe discharge planning. MANAGEMENT PLAN: Continue Celexa 40 mg po q am, Seroquel 100 mg po q hs, and Continue Seroquel 25 mg po q 6 hours PRN anxiety/agitation Maintain safety precautions Patient to attend groups and participate in unit programming to develop coping strategies Engage patient in discharge planning process and arrange meeting with support system to ensure safe discharge planning when appropriate Patient to follow up with PCM upon discharge Patient to participate in outpatient anger management training TIME SPENT: 35 minutes Vital Signs Vital Signs Date Time Temp Pulse Resp B/P (MAP) Pulse Ox O2 Delivery O2 Flow Rate FiO2 04/10/17 07:08 98.0 77 18 126/74 (91) 04/09/17 06:35 Room Air Current Medications Current Medications Acetaminophen (Tylenol Tab) 650 mg Q6HP PRN PO HEADACHE or DISCOMFORT Last administered on 04/10/17 05:38; Start 03/31/17 at 00:15; Stop 04/30/17 at 00:14 Al Hydrox/Mg Hydrox/Simethicone (Mylanta) 30 ml Q4HP PRN PO HEARTBURN/ INDIGESTION; Start 03/31/17 at 00:15; Stop 04/30/17 at 00:14 Albuterol Sulfate (Proventil, Ventolin Hfa) 2 puff Q4HP PRN INH SHORTNESS OF BREATH; Start 03/31/17 at 08:30; Stop 04/30/17 at 08:29 Citalopram Hydrobromide (CeleXA) 20 mg QAM PO Last administered on 04/04/17 08 :07; Start 03/31/17 at 09:00; Stop 04/04/17 at 15:23; Status DC Citalopram Hydrobromide (CeleXA) 30 mg QAM PO Last administered on 04/09/17 08 :31; Start 04/05/17 at 09:00; Stop 04/09/17 at 11:29; Status DC Citalopram Hydrobromide (CeleXA) 40 mg QAM PO Last administered on 04/10/17 08 :59; Start 04/10/17 at 09:00; Stop 05/10/17 at 08:59 Home Med (Med Rec Complete!) ASDIRECTED XX ; Start 03/30/17 at 22:30; Stop at 22:30; Status DC Hydroxyzine HCl (Atarax) 25 mg Q6HP PRN PO ANXIETY/AGITATION Last administered on 04/06/17 08:37; Start 04/04/17 at 15:30; Stop 04/06/17 at 09:07; Status DC Hydroxyzine HCl (Atarax) 50 mg Q6HP PRN PO ANXIETY Last administered on 08:21; Start 04/02/17 at 18:45; Stop 04/03/17 at 11:13; Status DC Hydroxyzine HCl (Atarax) 50 mg Q6HP PRN PO ITCHING Last administered on 08:44; Start 04/06/17 at 09:15; Stop 04/07/17 at 13:42; Status DC Magnesium Hydroxide (Milk Of Magnesia) 30 ml DAILYPRN PRN PO CONSTIPATION; Start 03/31/17 at 00:15; Stop 04/30/17 at 00:14 Nystatin (Mycostatin Powder, Nystop) 1 dose BID TOP Last administered on 08:51; Start 03/31/17 at 09:00; Stop 04/30/17 at 08:59 Quetiapine Fumarate (SEROquel) 25 mg Q6HP PRN PO anxiety/agitation Last administered on 04/08/17 13:24; Start 04/07/17 at 13:45; Stop 05/07/17 at 13:44 Quetiapine Fumarate (SEROquel) 100 mg QHS PO Last administered on 04/09/17 22: 43; Start 04/09/17 at 21:00; Stop 05/09/17 at 20:59 Sertraline HCl (Zoloft) 50 mg QAM PO ; Start 03/31/17 at 09:00; Stop 04/30/17 at 08:59; Status Cancel Trazodone HCl (Desyrel) 50 mg QHS PRN PO INSOMNIA Last administered on 22:12; Start 04/01/17 at 19:15; Stop 04/09/17 at 15:46; Status DC Trazodone HCl (Desyrel) 50 mg QHSP PRN PO INSOMNIA; Start 03/31/17 at 00:15; Stop 04/30/17 at 00:14; Status Cancel Trazodone HCl (Desyrel) 100 mg QHS PRN PO INSOMNIA Last administered on 22:30; Start 03/31/17 at 10:15; Stop 04/01/17 at 19:03; Status DC Allergies Coded Allergies: No Known Allergies (Verified Allergy, 04/17/12) Tonia Casiano Apr 10, 2017 15:04
[2017-04-10 18:00] VITALS: BP 140/67
[2017-04-10] MEDS: QUEtiapine FUMARATE 100 MG TAB PO SCH (22:17)
[2017-04-11] MEDS: ACETAMINOPHEN TAB 650MG DOSE (2X325MG) PO PRN ×2 (04:14→11:04)
[2017-04-11 06:29] VITALS: BP 128/77
[2017-04-11] MEDS: CitaloPRAM (CeleXA) 20 MG TAB PO SCH (08:25)
[2017-04-11] MEDS: NYSTATIN 100,000 UNITS/GM TOPICAL PWD 15 GM TOP SCH ×2 (08:25→21:00)
--- NOTE | 2017-04-11 09:22 | MHIPNPDOC ---
[facility] Progress Note Progress Note DATE OF SERVICE: 04/11/17 HISTORY: Patient is a 41-year-old male who presented to the ED with complaint of increasing depression and "feeling like I'm going to have a nervous breakdown ". Pt was previously a patient on [facility] in 2011. He missed several appointments and was not compliant with outpatient treatment. Patient has reportedly been receiving case management services through [facility], notes he spends a month or 2 out of town on occasion and he has lost the services also. Pt made 1 previous suicide attempt in 2012 by hanging. Pt identifies the of his parents and especially the loss () of his brother Navi as main stressors in his life, Navi from Cancer about 7 years ago. Patient has taken Zoloft in the past, indicates medication exacerbated symptoms of depression, admitted to steamer operator that he has had challenges controlling anger in the past, denies experiencing at present. Patient has history of medication and treatment noncompliance. Tax Collection Coordinator met with patient today to assess treatment progress on inpatient unit. Patient states today he feels increase in Celexa dose and addition of hs Seroquel continue to help to improve mood and reduce symptoms of anxiety and depression. Patient has not needed to utilize PRN Seroquel today, indicates he was experiencing irritability this morning but continues to be able to work through symptoms without the use of medication and notes to insurance underwriter sales, "I feel like I'm making progress in using my coping strategies." Patient denies need for dosing adjustment and denies medication side effects. Patient reiterates today he believes he will be prepared for discharge on Friday, rates current anxiety level as 6/10, depression 6/10, attributes symptoms to "I'll always have days due to my brother and my father's ." Patient denies suicidal and homicidal ideation, denies auditory and visual hallucinations, and denies urge to engage in self-injurious behavior. Patient is voluntary admission, again becomes noticeably anxious when insurance underwriter sales broaches subject of discharge which was previously scheduled for today, becomes noticeably more relaxed when subject changes. Patient denies symptoms of irritability, agitation, impulsivity, and mood lability, reiterates today he is willing to participate in anger management training, also reiterates he is able to walk away from conflicts, maintain behavioral control and regain composure quickly. Patient continues to agree to notify staff if he is experiencing personality conflict or uncontrollable symptoms of irritability/anger. Patient states he is eating well and indicates energy level and concentration and focus are normal. Patient remains evasive regarding legal charges but again today speaks openly about concerns he has pertaining to another upcoming court date, and feeling the need to get oncology social worker paperwork in order. Patient confirms today that he will stay with his cousin for a period of time before returning to his home. Patient makes no report of physical pain and presents with no signs of acute distress at time of interaction. VITALS: See below NEW TEST RESULTS: 04/02/17 repeated labs indicated elevated MCV, MCH, carbon dioxide, and chloride and low anion gap, AST, and total bilirubin MEDICAL/SURGICAL HISTORY: History of obesity with history of weight loss, history of hypertension proved with weight loss, history of diabetes mellitus to improved with weight loss, history of asthma, upper teeth removed. Patient denies history of seizure or head injury. Patient reports decreased hearing to right ear. Labs on admission indicated elevated MCV, MCH, TSH and low anion gap, AST UDS negative 03/31/17 EKG sinus rhythm early repolarization no prior ECG available for comparison at time of interpretation. Clinical consultation soft with recommendation made for follow-up with outpatient provider, patient is asymptomatic. 04/02/17 vascular ultrasound - No evidence of deep venous thrombosis of the bilateral lower extremity femoral popliteal venous system. Completed due to LE pain reported by patient, PA is monitoring. CURRENT MEDICATIONS: See below MENTAL STATUS EXAMINATION: General appearance: Patient is a 41-year old male, who is engageable, remains evasive but cooperative, makes improved eye contact, exhibited adequate personal hygiene, dressed in hospital clothing, ambulates with steady gait, appears stated age. Speech: Of normal rate and rhythm, and improve volume, spontaneous, coherent Thought processes: Linear, logical, goal directed Thought content: Rational, logical, no tangentiality or paranoia noted, no perseveration Abstract reasoning and computation: Appears intact Description of associations: Intact Description of abnormal or psychotic thoughts: Patient denies suicidal and homicidal ideation, denies auditory or visual hallucinations, does not appear to be responding to internal stimuli, does not endorse bizarre or paranoid ideation, and denies preoccupation with violence or obsessions. Judgment: Adequate, has improved during treatment Insight: Fair, some improvement noted Orientation: A and O 3 Recent and remote memory: Appears intact Attention span and concentration: Within normal limits Fund of knowledge: Limited, classified special ed with IEP. Mood: "I know better every day and I'm pretty sure I'll be ready to discharge on Friday." Patient reports improvement in symptoms of anxiety and depressed, no mood lability noted Affect: Constricted, brightens at times, expresses humor at times, congruent with mood DIAGNOSES: Major Depressive disorder, severe, recurrent, without psychotic features, rule out adjustment disorder. Alcohol use disorder by history, rule out polysubstance use disorder. Neurodevelopmental disorder. ASSESSMENT: Patient is adjusting well to unit, remains visible, engages selectively with staff and peers, remains cooperative with staff, is participating in groups, and has presented with no behavior management challenges. Patient is observed to be interacting well with peers. Patient indicates current medication regimen is effective and he denies medication side effects, has not needed to utilize PRN 2 and indicates he is making strides in managing symptoms by utilizing newly learned coping mechanisms. Patient denies symptoms of irritability, agitation, impulsivity, and mood lability at time of interaction. Patient remains in agreement with anger management training post discharge. Will continue low-dose Seroquel PRN to address intermittent symptoms of anxiety/agitation if needed. Patient denies current suicidal or homicidal ideation and verbalizes awareness of how to access supportive services on the unit if needed. Patient states when prepared for discharge he plans to stay with cousin for period of time, notes would eventually like to return home to his apartment, is refusing TLS or other supportive housing. Patient is now active with APS worker, reiterates he has family and friends who are supportive in the area. Patient had also been receiving case management and outpatient services through [facility] which she is interested in resuming upon discharge. group rooms coordinator will request anger management training and will continue to attempt to coordinate discharge needs with outpatient providers to ensure good continuity care and safe discharge planning. MANAGEMENT PLAN: Continue Celexa 40 mg po q am, Seroquel 100 mg po q hs, and Continue Seroquel 25 mg po q 6 hours PRN anxiety/agitation Maintain safety precautions Patient to attend groups and participate in unit programming to develop coping strategies Engage patient in discharge planning process and arrange meeting with support system to ensure safe discharge planning when appropriate Patient to follow up with PCM upon discharge Patient to participate in outpatient anger management training TIME SPENT: 35 minutes Vital Signs Vital Signs Date Time Temp Pulse Resp B/P (MAP) Pulse Ox O2 Delivery O2 Flow Rate FiO2 04/11/17 06:29 97.8 72 20 128/77 (94) 04/09/17 06:35 Room Air Current Medications Current Medications Acetaminophen (Tylenol Tab) 650 mg Q6HP PRN PO HEADACHE or DISCOMFORT Last administered on 04/11/17 04:14; Start 03/31/17 at 00:15; Stop 04/30/17 at 00:14 Al Hydrox/Mg Hydrox/Simethicone (Mylanta) 30 ml Q4HP PRN PO HEARTBURN/ INDIGESTION; Start 03/31/17 at 00:15; Stop 04/30/17 at 00:14 Albuterol Sulfate (Proventil, Ventolin Hfa) 2 puff Q4HP PRN INH SHORTNESS OF BREATH; Start 03/31/17 at 08:30; Stop 04/30/17 at 08:29 Citalopram Hydrobromide (CeleXA) 20 mg QAM PO Last administered on 04/04/17 08 :07; Start 03/31/17 at 09:00; Stop 04/04/17 at 15:23; Status DC Citalopram Hydrobromide (CeleXA) 30 mg QAM PO Last administered on 04/09/17 08 :31; Start 04/05/17 at 09:00; Stop 04/09/17 at 11:29; Status DC Citalopram Hydrobromide (CeleXA) 40 mg QAM PO Last administered on 04/11/17 08 :25; Start 04/10/17 at 09:00; Stop 05/10/17 at 08:59 Home Med (Med Rec Complete!) ASDIRECTED XX ; Start 03/30/17 at 22:30; Stop at 22:30; Status DC Hydroxyzine HCl (Atarax) 25 mg Q6HP PRN PO ANXIETY/AGITATION Last administered on 04/06/17 08:37; Start 04/04/17 at 15:30; Stop 04/06/17 at 09:07; Status DC Hydroxyzine HCl (Atarax) 50 mg Q6HP PRN PO ANXIETY Last administered on 08:21; Start 04/02/17 at 18:45; Stop 04/03/17 at 11:13; Status DC Hydroxyzine HCl (Atarax) 50 mg Q6HP PRN PO ITCHING Last administered on 08:44; Start 04/06/17 at 09:15; Stop 04/07/17 at 13:42; Status DC Magnesium Hydroxide (Milk Of Magnesia) 30 ml DAILYPRN PRN PO CONSTIPATION; Start 03/31/17 at 00:15; Stop 04/30/17 at 00:14 Nystatin (Mycostatin Powder, Nystop) 1 dose BID TOP Last administered on 08:51; Start 03/31/17 at 09:00; Stop 04/30/17 at 08:59 Quetiapine Fumarate (SEROquel) 25 mg Q6HP PRN PO anxiety/agitation Last administered on 04/08/17 13:24; Start 04/07/17 at 13:45; Stop 05/07/17 at 13:44 Quetiapine Fumarate (SEROquel) 100 mg QHS PO Last administered on 04/10/17 22: 17; Start 04/09/17 at 21:00; Stop 05/09/17 at 20:59 Sertraline HCl (Zoloft) 50 mg QAM PO ; Start 03/31/17 at 09:00; Stop 04/30/17 at 08:59; Status Cancel Trazodone HCl (Desyrel) 50 mg QHS PRN PO INSOMNIA Last administered on 22:12; Start 04/01/17 at 19:15; Stop 04/09/17 at 15:46; Status DC Trazodone HCl (Desyrel) 50 mg QHSP PRN PO INSOMNIA; Start 03/31/17 at 00:15; Stop 04/30/17 at 00:14; Status Cancel Trazodone HCl (Desyrel) 100 mg QHS PRN PO INSOMNIA Last administered on 22:30; Start 03/31/17 at 10:15; Stop 04/01/17 at 19:03; Status DC Allergies Coded Allergies: No Known Allergies (Verified Allergy, 04/17/12) Tonia Casiano Apr 11, 2017 09:22
[2017-04-11] MEDS: QUEtiapine FUMARATE 25 MG TAB PO PRN (12:16)
[2017-04-11 18:00] VITALS: BP 108/68
[2017-04-11] MEDS: QUEtiapine FUMARATE 100 MG TAB PO SCH (23:21)
[2017-04-12] MEDS: ACETAMINOPHEN TAB 650MG DOSE (2X325MG) PO PRN (04:36)
[2017-04-12] MEDS: QUEtiapine FUMARATE 25 MG TAB PO PRN (07:02)
[2017-04-12] MEDS: NYSTATIN 100,000 UNITS/GM TOPICAL PWD 15 GM TOP SCH ×2 (08:18→21:00)
[2017-04-12] MEDS: CitaloPRAM (CeleXA) 20 MG TAB PO SCH (08:21)
[2017-04-12 12:33] VITALS: BP 136/70
[2017-04-12 18:00] VITALS: BP 111/63
[2017-04-12] MEDS: QUEtiapine FUMARATE 100 MG TAB PO SCH (22:32)
[2017-04-13] MEDS: ACETAMINOPHEN TAB 650MG DOSE (2X325MG) PO PRN ×2 (03:31→11:54)
[2017-04-13 06:26] VITALS: BP 124/78
[2017-04-13] MEDS: CitaloPRAM (CeleXA) 20 MG TAB PO SCH (08:43)
[2017-04-13] MEDS: NYSTATIN 100,000 UNITS/GM TOPICAL PWD 15 GM TOP SCH ×2 (08:43→20:27)
[2017-04-13 18:00] VITALS: BP 134/81
[2017-04-13] MEDS: QUEtiapine FUMARATE 100 MG TAB PO SCH (22:19)
[2017-04-14] MEDS: ACETAMINOPHEN TAB 650MG DOSE (2X325MG) PO PRN (03:54)
[2017-04-14 07:31] VITALS: BP 126/77
[2017-04-14] MEDS: CitaloPRAM (CeleXA) 20 MG TAB PO SCH (08:02)
[2017-04-14] MEDS: NYSTATIN 100,000 UNITS/GM TOPICAL PWD 15 GM TOP SCH (08:02)
--- NOTE | 2017-04-14 09:47 | MHDSPDOC ---
[facility] Discharge Summary Discharge Summary DATE OF ADMISSION: Mar 30, 2017 at 22:45 DATE OF DISCHARGE: Apr 14, 2017 HISTORY: Patient is a 41-year-old male, who presented to the ED with complaint of increasing depression and "feeling like I'm going to have a nervous breakdown ". Pt was previously a patient on [facility] in 2011. He missed several appointments and has been lost to follow up as an outpatient. He also was connected with [facility] through [facility] and has Crystal assignmed to him. He spends a month or 2 out of town on occasion and he has lost the services also. Pt made 1 previous suicide attempt in 2011 by hanging. His girlfriend at the time helped him out and was able to convince him to come to the hospital for help. Pt identifies the of his parents and especially the loss () of his brother Navi as main stressors in his life. He and Navi lived together. Navi from Cancer about 7 years ago. Bucky has neer . He has a sister and 2 brothers in the area. He has a cousin Kady who convinced him to come in for treatment this time. He identifies knowing many people in [place] and the surrounding area and has a number of friends and people he spends time with. Bucky was in Special Education when he attended public school. He completed High School by obtaining an "Independent Diploma" from [employer]. He was employed from 1998- 2000 at [employer] but "my anger issues got me fired. If I had not cursed out the boss I could still be there today." He has an apartment on [address] and lives with his 2 small dogs. Recently Bucky had a run in with the law for shoplifting at [employer]. He had a public relations writer who got him a deal but Bucky did not agree with the deal since it involved going for drug treatment and Bucky was not using drugs. He admits to a previous h/o abusing alcohol and "pills". His brother Navi sough him through withdrawal from Alcohol and Bucky has not had any since 1995. He had a spiritual conversion at that time again, with his brother's help. PSYCHIATRIC REVIEW OF SYSTEMS AT TIME OF ADMISSION: Affective: constricted. Anxiety: mild. Trauma: denies. Psychosis: not illicited or observed Personally: cooperative. PAST PSYCHIATRIC HISTORY: Prior Psychiatric Disorder: [facility] 2011, would like to have follow up at [facility] now as he lives in [place], pt does not want individual therapy unless it is with the psychiatrist. Admission to [facility] for depression with SI in 2011. Outpatient Treatment: as above, also [facility] case management, pt wants to continue to live independently Suicidal/Self injurious: no self-mutilation, 1 attempt at suicide by hanging 5 years ago. Psychotropic Medication History: sertraline 100 mg not effective, Trazodone 100 mg, effective MEDICAL/SURGICAL HISTORY: History of obesity with history of weight loss, history of hypertension proved with weight loss, history of diabetes mellitus to improved with weight loss, history of asthma, upper teeth removed. Patient denies history of seizure or head injury. Patient reports decreased hearing to right ear. Labs on admission indicated elevated MCV, MCH, TSH and low anion gap, AST 04/02/17 repeated labs indicated elevated MCV, MCH, carbon dioxide, and chloride and low anion gap, AST, and total bilirubin UDS negative 03/31/17 EKG sinus rhythm early repolarization no prior ECG available for comparison at time of interpretation. Clinical consultation soft with recommendation made for follow-up with outpatient provider, patient is asymptomatic. 04/02/17 vascular ultrasound - No evidence of deep venous thrombosis of the bilateral lower extremity femoral popliteal venous system. Completed due to LE pain reported by patient, PA has addressed. FAMILY PSYCHIATRIC HISTORY: cousin Nahum committed suicide by shotgun in 1992. Brother Navi had depression. Denies family h/o bipolar disorder, schizophrenia , anxiety or PTSD. SOCIAL HISTORY: Early Relations/development: raised by mom and dad and lived with 5 siblings, 1 has CP and is confined to a wheelchair, 1 brother due to cancer. Sibling order: Bucky is the youngest. Paternal relationships: . Education: HS (special ed) Occupational: unemployed. Legal: misdemeanor charges pending due to shoplifting from [employer]. Martial: single, never . Economic: unclear how he supports himself. Supports: brothers, cousin, friends. Abuse/trauma: denies. SUBSTANCE ABUSE HISTORY: pt used to consume alcohol but quit in 1995. TREATMENT PROGRESS ON UNIT: Patient is a voluntary admission who has adjusted well to unit, has been visible, sociable with peers, has participated well in unit programming, and has presented with no overt behavior management challenges. Patient has demonstrated increased insight and has improved his ability to verbalize his grief associated with loss of brother and father. Patient indicates current medication regimen is effective and he denies medication side effects, reiterates today he believes he has learned new coping mechanisms for managing his anger and has not needed to utilize PRN Seroquel 2 days indicating he feels in control of his emotional responses. Patient has consistently denied history of aggression. Patient denies symptoms of irritability, agitation, impulsivity, and mood lability. Patient has also agreed to participate in anger management training post discharge from hospital. Patient reports low-grade anxiety only as related to discharge, denies depression, denies suicidal or homicidal ideation, denies auditory and visual hallucinations, and denies urge to engage in self-injurious behavior. Patient reports improvement in energy level and concentration and focus, denies challenges with appetite. Patient is able to effectively engage in the safety planning process and verbalizes concrete strategies for managing symptoms of anxiety, depression, suicidal ideation, and irritability/agitation should symptoms reemerge. Patient is future oriented and goal-directed. Patient is requesting discharge today and family meeting has been completed with patients cousin who is denied having concerns pertaining to patients discharge readiness. Patient will be discharging to home of cousin with whom patient will be staying temporarily before transitioning back to his own home. Patient will be receiving case management services through [facility] and has an APS worker who will assist with his DSS application. Patient will participate in outpatient psychotherapy and medication management services through [facility] outpatient behavioral [facility], and will also be participating in anger management classes. Patient verbalizes understanding of and agreement with discharge plan. MENTAL STATUS EXAMINATION: General appearance: Patient is a 41-year old male, who is easily engaged, is cooperative and makes good eye contact, exhibits adequate personal hygiene, dressed in hospital clothing, ambulates with steady gait, appears stated age. Speech: Of normal rate and rhythm, and improve volume, spontaneous, coherent Thought processes: Linear, logical, goal directed Thought content: Rational, logical, no tangentiality or paranoia noted, no perseveration Abstract reasoning and computation: Appears intact Description of associations: Intact Description of abnormal or psychotic thoughts: Patient denies suicidal and homicidal ideation, denies auditory or visual hallucinations, does not appear to be responding to internal stimuli, does not endorse bizarre or paranoid ideation, and denies preoccupation with violence or obsessions. Judgment: Adequate, has improved during treatment Insight: Fair, some improvement noted during treatment Orientation: A and O 3 Recent and remote memory: Appears intact Attention span and concentration: Within normal limits Fund of knowledge: Limited, classified special ed with IEP. Mood: "I'm feeling better and I feel like I have my anger is under control." Patient reports low level anxiety only as related to discharge, denies depression, no mood lability noted Affect: Mild constriction, brightens frequently and appropriately, expresses humor, congruent with mood CONDITION ON DISCHARGE: Stable, no suicidal or homicidal ideation DIAGNOSES ON DISCHARGE: Major Depressive disorder, severe, recurrent, without psychotic features, rule out adjustment disorder. Alcohol use disorder by history, rule out polysubstance use disorder. Neurodevelopmental disorder. MEDICATIONS ON DISCHARGE: See below FOLLOW UP PLAN: Continue Celexa 40 mg po q am, Seroquel 100 mg po q hs, and Seroquel 25 mg po q 6 hours PRN anxiety/agitation Patient to discharge to home today with cousin where he will stay temporarily before returning to his home. Patient will participate in follow-up outpatient services through [facility] for psychotherapy and medication management. Patient to participate in anger management training Patient to also follow-up with APS and TLS for case management services Patient to follow-up with PCM regarding health concerns within 5-7 days of discharge TIME SPENT COORDINATING CARE: 25 minutes Vital Signs/I&Os Vital Signs Date Time Temp Pulse Resp B/P (MAP) Pulse Ox O2 Delivery O2 Flow Rate FiO2 04/14/17 07:31 97.1 81 20 126/77 (93) Room Air Medications Scheduled Citalopram Hydrobromide (Citalopram Hydrobromide) 40 Mg Tab, 40 MG PO QAM for DEPRESSION, #7 Nystatin (Nystop Powder) 1 Dose/15 Gm Powd, 1 DOSE TOP BID for MYCOSIS, #1 Quetiapine Fumerate (Quetiapine Fumarate) 100 Mg Tab, 100 MG PO QHS for mood/ sleep, #7 Scheduled PRN Albuterol Sulfate (Ventolin Hfa) 200 Puff/8 Gm Aers, 2 PUFF INH Q4HP PRN for SHORTNESS OF BREATH, #1 Quetiapine Fumerate (Quetiapine Fumarate) 25 Mg Tab, 25 MG PO Q6HP PRN for anxiety/agitation, #7 Allergies Coded Allergies: No Known Allergies (Verified Allergy, 04/17/12) Tonia Casiano Apr 14, 2017 09:47
[2017-04-14] MEDS ORDERED: QUET1TAB8 PO (12:00)
[2017-04-14] MEDS ORDERED: QUET1TAB7 PO (12:00)
[2017-04-14] MEDS ORDERED: CITA40TA4 PO (12:00)
[2017-04-14] MEDS ORDERED: ALBU17IN INH (13:22)
[2017-04-14] MEDS ORDERED: NYST10PW TOP (13:22)
== END 2017-04-14 14:08 | disposition home or self-care (01) | DRG 885 ==
LOC: M ED 18:29 → M ED INP 22:45 → M PSY 23:29
PROVIDERS: ADMIT Psychiatry & Neurology Psychiatry; ATTEND Psychiatry & Neurology Psychiatry
DX: F33.2 Major depressive disorder, recurrent severe without psychotic features (principal); F10.10 Alcohol abuse, uncomplicated; F89 Unspecified disorder of psychological development; E11.9 Type 2 diabetes mellitus without complications; I10 Essential (primary) hypertension; E66.9 Obesity, unspecified; J45.909 Unspecified asthma, uncomplicated; Z68.36 Body mass index [BMI] 36.0-36.9, adult; B35.6 Tinea cruris

== ENCOUNTER 2017-10-16 18:35 | Inpatient (IN) | payer MEDICARE, MEDICAID ==
[2017-10-16 19:29] LABS: HEMATOCRIT 46.1 % (42.0-52.0); HEMOGLOBIN 15.8 g/dl (14.0-18.0); MEAN CORPUSCULAR HEMOGLOBIN 32.8 pg (27.0-33.0); MEAN CORPUSCULAR HGB CONC 34.3 g/dl (32.0-36.5); MEAN CORPUSCULAR VOLUME 95.6 fl (80.0-96.0); PLATELET COUNT, AUTOMATED 228 10^3/uL (150-450); RED BLOOD COUNT 4.82 10^6/uL (4.30-6.10); RED CELL DISTRIBUTION WIDTH 12.5 % (11.5-14.5); WHITE BLOOD COUNT 5.1 10^3/uL (4.0-10.0)
[2017-10-16 20:10] LABS: ACETAMINOPHEN LEVEL < 2.0 UG/ML (10.0-30.0); ALBUMIN 3.9 GM/DL (3.2-5.2); ALBUMIN/GLOBULIN RATIO 1.34 (1.00-1.93); ALKALINE PHOSPHATASE 57 U/L (45-117); ALT/SGPT 18 U/L (12-78); AMPHETAMINES LEVEL URINE NEGATIVE (NEGATIVE); ANION GAP 6 MEQ/L (8-16); AST/SGOT 16 U/L (7-37); BARBITURATES URINE NEGATIVE (NEGATIVE); BENZODIAZEPINES URINE NEGATIVE (NEGATIVE); BILIRUBIN,DIRECT 0.1 MG/DL (0.0-0.2); BILIRUBIN,TOTAL 0.4 MG/DL (0.2-1.0); BLOOD UREA NITROGEN 9 MG/DL (7-18); CALCIUM LEVEL 8.5 MG/DL (8.5-10.1); CANNABINOIDS URINE NEGATIVE (NEGATIVE); CARBON DIOXIDE LEVEL 30 MEQ/L (21-32); CHLORIDE LEVEL 109 MEQ/L (98-107); COCAINE METABOLITE URINE NEGATIVE (NEGATIVE); CREATININE FOR GFR 1.33 MG/DL (0.70-1.30); ETHYL ALCOHOL (ETHANOL) 0.003 % (0.000-0.010); GLOMERULAR FILTRATION RATE > 60.0 (>60); GLUCOSE, FASTING 86 MG/DL (70-100); METHADONE URINE NEGATIVE (NEGATIVE); OPIATES URINE NEGATIVE (NEGATIVE); PHENCYCLIDINE URINE NEGATIVE (NEGATIVE); POTASSIUM SERUM 3.6 MEQ/L (3.5-5.1); SALICYLATE LEVEL < 1.7 MG/DL (5.0-30.0); SODIUM LEVEL 145 MEQ/L (136-145); TOTAL PROTEIN 6.8 GM/DL (6.4-8.2)
[2017-10-16] MEDS ORDERED: MOM 30ML SUSPENSION UDC PO (22:45)
[2017-10-17] MEDS ORDERED: ALBUTEROL 90 MCG/ACT 8GM HFA INHALER INH (09:15)
[2017-10-17] MEDS: CARBAMIDE PEROXIDE 6.5% OTIC SOLN 15ML AD ×2 (10:13→22:11)
[2017-10-17] MEDS: NYSTATIN 100,000 UNITS/GM TOPICAL PWD 15 GM TOP ×2 (10:13→22:11)
[2017-10-17] MEDS: SERTRALINE HCL 50 MG TAB PO (13:38)
[2017-10-17] MEDS: QUEtiapine FUMARATE 50 MG TAB PO (22:10)
[2017-10-18] MEDS: ACETAMINOPHEN TAB 650MG DOSE (2X325MG) PO (06:42)
[2017-10-18 07:27] LABS: ANION GAP 5 MEQ/L (8-16); BLOOD UREA NITROGEN 16 MG/DL (7-18); CALCIUM LEVEL 8.8 MG/DL (8.5-10.1); CARBON DIOXIDE LEVEL 31 MEQ/L (21-32); CHLORIDE LEVEL 108 MEQ/L (98-107); CREATININE FOR GFR 0.86 MG/DL (0.70-1.30); FREE THYROXINE INDEX 2.9 % (1.4-3.8); GLOMERULAR FILTRATION RATE > 60.0 (>60); GLUCOSE, FASTING 93 MG/DL (70-100); SODIUM LEVEL 144 MEQ/L (136-145); T UPTAKE 33 % (33-40); THYROXINE (T4) 8.9 UG/DL (4.5-12.0)
[2017-10-18] MEDS: SERTRALINE HCL 50 MG TAB PO (08:31)
[2017-10-18] MEDS: CARBAMIDE PEROXIDE 6.5% OTIC SOLN 15ML AD ×2 (08:33→21:00)
[2017-10-18] MEDS: NYSTATIN 100,000 UNITS/GM TOPICAL PWD 15 GM TOP ×2 (08:33→21:00)
[2017-10-18] MEDS: BISACODYL 5 MG TAB PO (20:13)
[2017-10-18] MEDS: QUEtiapine FUMARATE 50 MG TAB PO (22:38)
[2017-10-19] MEDS: ACETAMINOPHEN TAB 650MG DOSE (2X325MG) PO ×2 (05:31→14:37)
[2017-10-19] MEDS: NYSTATIN 100,000 UNITS/GM TOPICAL PWD 15 GM TOP ×2 (08:55→21:00)
[2017-10-19] MEDS: SERTRALINE HCL 50 MG TAB PO (08:56)
[2017-10-19] MEDS: CARBAMIDE PEROXIDE 6.5% OTIC SOLN 15ML AD ×2 (08:57→21:00)
[2017-10-19] MEDS: BISACODYL 5 MG TAB PO (20:24)
[2017-10-19] MEDS: QUEtiapine FUMARATE 50 MG TAB PO (21:31)
[2017-10-20] MEDS: ACETAMINOPHEN TAB 650MG DOSE (2X325MG) PO (03:50)
[2017-10-20] MEDS: CARBAMIDE PEROXIDE 6.5% OTIC SOLN 15ML AD ×2 (08:26→21:22)
[2017-10-20] MEDS: SERTRALINE HCL 50 MG TAB PO (08:26)
[2017-10-20] MEDS: NYSTATIN 100,000 UNITS/GM TOPICAL PWD 15 GM TOP ×2 (08:38→21:00)
[2017-10-20] MEDS ORDERED: SENNA 8.6 MG TAB (SENOKOT) PO (11:45)
[2017-10-20] MEDS: hydrOXYzine 10 MG TAB PO (12:24)
[2017-10-20] MEDS: PRAZOSIN 1 MG CAP PO (21:21)
[2017-10-20] MEDS: QUEtiapine FUMARATE 50 MG TAB PO (21:59)
[2017-10-21] MEDS: ACETAMINOPHEN TAB 650MG DOSE (2X325MG) PO (01:37)
[2017-10-21] MEDS: SERTRALINE 100 MG TAB PO (08:08)
[2017-10-21] MEDS: NYSTATIN 100,000 UNITS/GM TOPICAL PWD 15 GM TOP ×2 (08:08→20:24)
[2017-10-21] MEDS ORDERED: **PENDING PPD ENTRY XX (09:00)
[2017-10-21] MEDS: PRAZOSIN 1 MG CAP PO (20:25)
[2017-10-21] MEDS: TUBERCULIN PPD 5 UNITS/0.1 ML ID (21:07)
[2017-10-21] MEDS: QUEtiapine FUMARATE 50 MG TAB PO (21:26)
[2017-10-22] MEDS: ACETAMINOPHEN TAB 650MG DOSE (2X325MG) PO ×2 (02:56→17:14)
[2017-10-22] MEDS: SERTRALINE 100 MG TAB PO (08:26)
[2017-10-22] MEDS: NYSTATIN 100,000 UNITS/GM TOPICAL PWD 15 GM TOP ×2 (08:26→20:41)
[2017-10-22] MEDS ORDERED: TUBERCULIN PPD 5 UNITS/0.1 ML ID ×2 (10:00→13:00)
[2017-10-22] MEDS: PRAZOSIN 1 MG CAP PO (20:40)
[2017-10-22] MEDS: QUEtiapine FUMARATE 50 MG TAB PO (21:55)
[2017-10-23] MEDS: ACETAMINOPHEN TAB 650MG DOSE (2X325MG) PO (04:24)
[2017-10-23] MEDS: SERTRALINE 100 MG TAB PO (08:50)
[2017-10-23] MEDS: NYSTATIN 100,000 UNITS/GM TOPICAL PWD 15 GM TOP ×2 (08:51→21:00)
[2017-10-23] MEDS ORDERED: PPD DOCUMENTATION ENTRY MISC XX ×2 (10:00→20:00)
[2017-10-23] MEDS: PPD DOCUMENTATION ENTRY MISC XX (21:00)
[2017-10-23] MEDS: PRAZOSIN 1 MG CAP PO (21:19)
[2017-10-23] MEDS: QUEtiapine FUMARATE 50 MG TAB PO (21:19)
[2017-10-24] MEDS: ACETAMINOPHEN TAB 650MG DOSE (2X325MG) PO (03:56)
[2017-10-24] MEDS: NYSTATIN 100,000 UNITS/GM TOPICAL PWD 15 GM TOP ×2 (08:38→21:00)
[2017-10-24] MEDS: SERTRALINE 100 MG TAB PO (08:38)
[2017-10-24] MEDS: PRAZOSIN 1 MG CAP PO (20:57)
[2017-10-24] MEDS: QUEtiapine FUMARATE 50 MG TAB PO (21:29)
[2017-10-25] MEDS: ACETAMINOPHEN 500 MG TAB PO (03:46)
[2017-10-25] MEDS: NYSTATIN 100,000 UNITS/GM TOPICAL PWD 15 GM TOP ×2 (08:01→20:35)
[2017-10-25] MEDS: SERTRALINE 100 MG TAB PO (08:01)
[2017-10-25] MEDS: hydrOXYzine 10 MG TAB PO (18:45)
[2017-10-25] MEDS: PRAZOSIN 1 MG CAP PO (20:25)
[2017-10-25] MEDS: QUEtiapine FUMARATE 50 MG TAB PO (21:47)
[2017-10-26] MEDS: ACETAMINOPHEN 500 MG TAB PO (02:51)
[2017-10-26] MEDS: hydrOXYzine 10 MG TAB PO (07:49)
[2017-10-26] MEDS: SERTRALINE 100 MG TAB PO (07:49)
[2017-10-26] MEDS: NYSTATIN 100,000 UNITS/GM TOPICAL PWD 15 GM TOP ×2 (07:49→21:00)
[2017-10-26] MEDS: traZODone 50 MG TAB PO (20:18)
[2017-10-26] MEDS: PRAZOSIN 1 MG CAP PO (20:19)
[2017-10-26] MEDS: QUEtiapine FUMARATE 50 MG TAB PO (20:19)
[2017-10-27] MEDS: ACETAMINOPHEN 500 MG TAB PO (03:39)
[2017-10-27] MEDS: SERTRALINE 100 MG TAB PO (08:39)
[2017-10-27] MEDS: NYSTATIN 100,000 UNITS/GM TOPICAL PWD 15 GM TOP ×2 (08:39→21:00)
[2017-10-27] MEDS: PRAZOSIN 1 MG CAP PO (20:03)
[2017-10-27] MEDS: traZODone 50 MG TAB PO (21:46)
[2017-10-27] MEDS: QUEtiapine FUMARATE 50 MG TAB PO (21:46)
[2017-10-28] MEDS: ACETAMINOPHEN 500 MG TAB PO (03:38)
[2017-10-28] MEDS: SERTRALINE 100 MG TAB PO (08:02)
[2017-10-28] MEDS: NYSTATIN 100,000 UNITS/GM TOPICAL PWD 15 GM TOP ×2 (08:03→21:00)
[2017-10-28] MEDS: hydrOXYzine 10 MG TAB PO (13:23)
[2017-10-28] MEDS: traZODone 50 MG TAB PO (22:09)
[2017-10-28] MEDS: QUEtiapine FUMARATE 50 MG TAB PO (22:09)
[2017-10-28] MEDS: PRAZOSIN 1 MG CAP PO (22:10)
[2017-10-29] MEDS: ACETAMINOPHEN 500 MG TAB PO ×2 (02:45→17:25)
[2017-10-29] MEDS: NYSTATIN 100,000 UNITS/GM TOPICAL PWD 15 GM TOP ×2 (08:11→21:00)
[2017-10-29] MEDS: SERTRALINE HCL 50 MG TAB PO (08:11)
[2017-10-29] MEDS: hydrOXYzine 10 MG TAB PO ×2 (10:37→17:24)
[2017-10-29] MEDS: PRAZOSIN 1 MG CAP PO (21:17)
[2017-10-29] MEDS: QUEtiapine FUMARATE 25 MG TAB PO (22:27)
[2017-10-30] MEDS: hydrOXYzine 10 MG TAB PO ×2 (08:12→20:20)
[2017-10-30] MEDS: SERTRALINE HCL 50 MG TAB PO (08:12)
[2017-10-30] MEDS: NYSTATIN 100,000 UNITS/GM TOPICAL PWD 15 GM TOP ×2 (08:13→21:00)
[2017-10-30] MEDS: PROPRANOLOL 10 MG TAB PO ×3 (12:00→20:20)
[2017-10-30] MEDS: QUEtiapine FUMARATE 25 MG TAB PO (21:33)
[2017-10-30] MEDS: traZODone 50 MG TAB PO (22:04)
[2017-10-31] MEDS: ACETAMINOPHEN 500 MG TAB PO (03:29)
[2017-10-31] MEDS: NYSTATIN 100,000 UNITS/GM TOPICAL PWD 15 GM TOP (08:35)
[2017-10-31] MEDS: SERTRALINE HCL 50 MG TAB PO (08:36)
[2017-10-31] MEDS: PROPRANOLOL 10 MG TAB PO ×3 (08:37→21:26)
[2017-10-31] MEDS: hydrOXYzine 10 MG TAB PO (13:11)
[2017-10-31] MEDS ORDERED: LORazepam 2 MG TAB PO (13:45)
[2017-10-31] MEDS ORDERED: QUEtiapine FUMARATE 50 MG TAB PO (21:00)
[2017-10-31] MEDS: traZODone 50 MG TAB PO (21:26)
[2017-10-31] MEDS: QUEtiapine FUMARATE 25 MG TAB PO (21:30)
[2017-11-01] MEDS: ACETAMINOPHEN 500 MG TAB PO (03:42)
[2017-11-01] MEDS: PROPRANOLOL 10 MG TAB PO ×3 (08:39→22:04)
[2017-11-01] MEDS: SERTRALINE HCL 50 MG TAB PO (08:39)
[2017-11-01] MEDS: hydrOXYzine 10 MG TAB PO ×2 (15:56→23:19)
[2017-11-01] MEDS: QUEtiapine FUMARATE 25 MG TAB PO (23:18)
[2017-11-01] MEDS: traZODone 50 MG TAB PO (23:18)
[2017-11-02] MEDS: ACETAMINOPHEN 500 MG TAB PO (06:04)
[2017-11-02] MEDS: PROPRANOLOL 10 MG TAB PO ×3 (08:18→21:28)
[2017-11-02] MEDS: hydrOXYzine 10 MG TAB PO ×3 (08:18→22:36)
[2017-11-02] MEDS: SERTRALINE HCL 50 MG TAB PO (08:18)
[2017-11-02] MEDS: traZODone 50 MG TAB PO (22:36)
[2017-11-02] MEDS: QUEtiapine FUMARATE 25 MG TAB PO (22:36)
[2017-11-03] MEDS: ACETAMINOPHEN 500 MG TAB PO (03:42)
[2017-11-03] MEDS: PROPRANOLOL 10 MG TAB PO ×3 (08:35→21:23)
[2017-11-03] MEDS: hydrOXYzine 10 MG TAB PO (08:35)
[2017-11-03] MEDS: SERTRALINE HCL 50 MG TAB PO ×2 (08:35→10:10)
[2017-11-03] MEDS: SERTRALINE 100 MG TAB PO (09:00)
[2017-11-03] MEDS: hydrOXYzine 25 MG TAB PO (11:14)
[2017-11-03] MEDS: QUEtiapine FUMARATE 25 MG TAB PO (22:52)
[2017-11-03] MEDS: traZODone 50 MG TAB PO (22:53)
[2017-11-04] MEDS: ACETAMINOPHEN 500 MG TAB PO (04:35)
[2017-11-04] MEDS: hydrOXYzine 25 MG TAB PO ×4 (08:43→20:09)
[2017-11-04] MEDS: PROPRANOLOL 10 MG TAB PO ×3 (08:43→20:10)
[2017-11-04] MEDS: SERTRALINE 100 MG TAB PO (08:43)
[2017-11-04] MEDS: QUEtiapine FUMARATE 25 MG TAB PO (22:59)
[2017-11-04] MEDS: traZODone 50 MG TAB PO (22:59)
[2017-11-05] MEDS: ACETAMINOPHEN 500 MG TAB PO (03:37)
[2017-11-05] MEDS: PROPRANOLOL 10 MG TAB PO ×3 (08:33→21:04)
[2017-11-05] MEDS: hydrOXYzine 25 MG TAB PO ×3 (08:33→21:04)
[2017-11-05] MEDS: SERTRALINE 100 MG TAB PO (08:33)
[2017-11-05] MEDS: OLANZapine ORAL DISINTEGRATING TAB 5MG PO (16:26)
[2017-11-05] MEDS: QUEtiapine FUMARATE 25 MG TAB PO (21:04)
[2017-11-05] MEDS: traZODone 50 MG TAB PO (21:04)
[2017-11-06] MEDS: ACETAMINOPHEN 500 MG TAB PO (03:51)
[2017-11-06] MEDS: SERTRALINE 100 MG TAB PO (08:05)
[2017-11-06] MEDS: PROPRANOLOL 10 MG TAB PO ×3 (08:05→20:36)
[2017-11-06] MEDS: hydrOXYzine 25 MG TAB PO ×3 (08:05→20:35)
[2017-11-06] MEDS: OLANZapine ORAL DISINTEGRATING TAB 5MG PO ×2 (13:37→22:21)
[2017-11-06] MEDS: QUEtiapine FUMARATE 12.5 MG HALF-TAB PO (14:49)
[2017-11-06] MEDS: traZODone 50 MG TAB PO (22:21)
[2017-11-06] MEDS: QUEtiapine FUMARATE 50 MG TAB PO (22:21)
[2017-11-07] MEDS: ACETAMINOPHEN 500 MG TAB PO (03:47)
[2017-11-07] MEDS: PROPRANOLOL 10 MG TAB PO ×3 (08:34→22:27)
[2017-11-07] MEDS: QUEtiapine FUMARATE 12.5 MG HALF-TAB PO ×2 (08:34→15:14)
[2017-11-07] MEDS: SERTRALINE 100 MG TAB PO (08:34)
[2017-11-07] MEDS: hydrOXYzine 25 MG TAB PO ×3 (08:34→22:20)
[2017-11-07] MEDS: QUEtiapine FUMARATE 50 MG TAB PO (22:20)
[2017-11-08] MEDS: ACETAMINOPHEN 500 MG TAB PO (03:00)
[2017-11-08] MEDS: QUEtiapine FUMARATE 12.5 MG HALF-TAB PO ×2 (08:29→15:52)
[2017-11-08] MEDS: hydrOXYzine 25 MG TAB PO ×3 (08:29→21:33)
[2017-11-08] MEDS: PROPRANOLOL 10 MG TAB PO ×3 (08:29→21:33)
[2017-11-08] MEDS: SERTRALINE 100 MG TAB PO (08:29)
[2017-11-08] MEDS: MAALOX 30 ML SUSP *UDC PO (19:02)
[2017-11-08] MEDS: QUEtiapine FUMARATE 50 MG TAB PO (21:31)
[2017-11-08] MEDS: OLANZapine ORAL DISINTEGRATING TAB 5MG PO (21:31)
[2017-11-09] MEDS: ACETAMINOPHEN 500 MG TAB PO (03:14)
[2017-11-09] MEDS: PROPRANOLOL 10 MG TAB PO ×4 (09:00→20:10)
[2017-11-09] MEDS: hydrOXYzine 25 MG TAB PO ×4 (09:00→20:11)
[2017-11-09] MEDS: SERTRALINE 100 MG TAB PO ×2 (09:00→09:21)
[2017-11-09] MEDS: QUEtiapine FUMARATE 12.5 MG HALF-TAB PO ×3 (09:00→15:19)
[2017-11-09] MEDS: QUEtiapine FUMARATE 50 MG TAB PO (22:10)
[2017-11-09] MEDS: traZODone 50 MG TAB PO (22:10)
[2017-11-10] MEDS: ACETAMINOPHEN 500 MG TAB PO (01:01)
[2017-11-10] MEDS: QUEtiapine FUMARATE 12.5 MG HALF-TAB PO ×2 (09:06→15:34)
[2017-11-10] MEDS: hydrOXYzine 25 MG TAB PO ×3 (09:06→20:19)
[2017-11-10] MEDS: SERTRALINE 100 MG TAB PO (09:06)
[2017-11-10] MEDS: PROPRANOLOL 10 MG TAB PO ×3 (09:06→20:20)
[2017-11-10] MEDS: QUEtiapine FUMARATE 50 MG TAB PO (22:49)
[2017-11-10] MEDS: OLANZapine ORAL DISINTEGRATING TAB 5MG PO (22:49)
[2017-11-10] MEDS: traZODone 50 MG TAB PO (22:49)
[2017-11-11] MEDS: SERTRALINE 100 MG TAB PO (09:11)
[2017-11-11] MEDS: PROPRANOLOL 10 MG TAB PO (09:12)
[2017-11-11] MEDS: hydrOXYzine 25 MG TAB PO (09:12)
[2017-11-11] MEDS: QUEtiapine FUMARATE 12.5 MG HALF-TAB PO (10:32)
== END 2017-11-11 13:01 | disposition home or self-care (01) | DRG 885 ==
LOC: M PSY 10-31 03:30 → M ED 18:35 → M PSY 23:25
DX: F33.2 Major depressive disorder, recurrent severe without psychotic features (principal); R45.851 Suicidal ideations; F60.89 Other specific personality disorders; F43.21 Adjustment disorder with depressed mood; R45.4 Irritability and anger; F79 Unspecified intellectual disabilities; E11.9 Type 2 diabetes mellitus without complications; J45.909 Unspecified asthma, uncomplicated; B35.6 Tinea cruris; H61.21 Impacted cerumen, right ear

== ENCOUNTER → 2018-01-30 | Outpatient (CLI) | payer MEDICARE, MEDICAID ==
[2018-01-30 09:43] LABS: PLATELET COUNT, AUTOMATED 219 10^3/uL (150-450)
[2018-01-30 10:00] LABS: ALBUMIN 3.4 GM/DL (3.2-5.2); ALKALINE PHOSPHATASE 46 U/L (45-117); ALT/SGPT 26 U/L (12-78); AST/SGOT 24 U/L (7-37); BILIRUBIN,DIRECT < 0.1 MG/DL (0.0-0.2); BILIRUBIN,TOTAL 0.3 MG/DL (0.2-1.0); TOTAL PROTEIN 6.5 GM/DL (6.4-8.2); VALPROIC ACID (DEPAKOTE) 37.7 UG/ML (50.0-100.0)
== END ==
LOC: M LAB 09:02
DX: Z51.81 Encounter for therapeutic drug level monitoring (principal); Z79.899 Other long term (current) drug therapy

== ENCOUNTER → 2018-01-30 | Outpatient (CLI) | payer MEDICARE, MEDICAID | LOC: M RAD 09:07 | DX: M25.551 Pain in right hip (principal); Z51.81 Encounter for therapeutic drug level monitoring; Z79.899 Other long term (current) drug therapy | CPT/HCPCS: 73502 ==

== ENCOUNTER → 2018-02-10 | Outpatient (REF) | payer MEDICARE, MEDICAID ==
[2018-02-10 13:52] LABS: ALBUMIN 3.8 GM/DL (3.2-5.2); ALBUMIN/GLOBULIN RATIO 1.19 (1.00-1.93); ALKALINE PHOSPHATASE 50 U/L (45-117); ALT/SGPT 32 U/L (12-78); ANION GAP 7 MEQ/L (8-16); AST/SGOT 33 U/L (7-37); BILIRUBIN,TOTAL 0.5 MG/DL (0.2-1.0); BLOOD UREA NITROGEN 23 MG/DL (7-18); CALCIUM LEVEL 9.3 MG/DL (8.5-10.1); CARBON DIOXIDE LEVEL 28 MEQ/L (21-32); CHLORIDE LEVEL 108 MEQ/L (98-107); CREATININE FOR GFR 0.98 MG/DL (0.70-1.30); GLOMERULAR FILTRATION RATE > 60.0 (>60); GLUCOSE, FASTING 87 MG/DL (70-100); SODIUM LEVEL 143 MEQ/L (136-145)
[2018-02-10 13:55] LABS: ESTIMATED AVERAGE GLUCOSE 91 MG/DL (60-110); HEMOGLOBIN A1c 4.8 %
[2018-02-10 14:17] LABS: POTASSIUM SERUM 5.2 MEQ/L (3.5-5.1)
== END ==
LOC: M LAB REF 12:23
DX: J45.30 Mild persistent asthma, uncomplicated (principal); Z13.1 Encounter for screening for diabetes mellitus; E66.01 Morbid (severe) obesity due to excess calories; Z79.899 Other long term (current) drug therapy
CPT/HCPCS: 84443

== ENCOUNTER 2018-04-30 12:02 | Inpatient (IN) | payer MEDICARE, MEDICAID ==
[2018-04-30 12:59] LABS: BASO # 0.1 10^3/uL (0.0-0.2); BASO % 1.5 % (0.0-1.0); EOS # 0.4 10^3/uL (0.0-0.50); EOS % 6.9 % (0.0-3.0); HEMATOCRIT 42.9 % (42.0-52.0); HEMOGLOBIN 14.7 g/dl (13.5-17.5); LYMPH # 1.3 10^3/uL (1.5-4.5); LYMPH % 23.9 % (24.0-44.0); MEAN CORPUSCULAR HEMOGLOBIN 32.8 pg (27.0-33.0); MEAN CORPUSCULAR HGB CONC 34.3 g/dl (32.0-36.5); MEAN CORPUSCULAR VOLUME 95.8 fl (80.0-96.0); MONO # 0.5 10^3/uL (0.0-0.8); MONO % 10.3 % (0.0-5.0); NEUTROPHILS % 56.4 % (36.0-66.0); PLATELET COUNT, AUTOMATED 217 10^3/uL (150-450); RED BLOOD COUNT 4.48 10^6/uL (4.30-6.10); RED CELL DISTRIBUTION WIDTH 13.3 % (11.5-14.5); WHITE BLOOD COUNT 5.2 10^3/uL (4.0-10.0)
[2018-04-30 13:20] LABS: AMPHETAMINES LEVEL URINE NEGATIVE (NEGATIVE); BARBITURATES URINE NEGATIVE (NEGATIVE); BENZODIAZEPINES URINE NEGATIVE (NEGATIVE); CANNABINOIDS URINE NEGATIVE (NEGATIVE); COCAINE METABOLITE URINE NEGATIVE (NEGATIVE); METHADONE URINE NEGATIVE (NEGATIVE); OPIATES URINE NEGATIVE (NEGATIVE); PHENCYCLIDINE URINE NEGATIVE (NEGATIVE)
[2018-04-30 13:46] LABS: ALBUMIN 3.5 GM/DL (3.2-5.2); ALKALINE PHOSPHATASE 48 U/L (45-117); ALT/SGPT 22 U/L (12-78); ANION GAP 6 MEQ/L (8-16); AST/SGOT 16 U/L (7-37); BILIRUBIN,DIRECT < 0.1 MG/DL (0.0-0.2); BILIRUBIN,TOTAL 0.3 MG/DL (0.2-1.0); BLOOD UREA NITROGEN 21 MG/DL (7-18); CALCIUM LEVEL 8.4 MG/DL (8.5-10.1); CARBON DIOXIDE LEVEL 29 MEQ/L (21-32); CHLORIDE LEVEL 107 MEQ/L (98-107); CPK CREATINE PHOSPHOKINASE 308 U/L (39-308); CREATININE FOR GFR 1.27 MG/DL (0.70-1.30); ETHYL ALCOHOL (ETHANOL) 0.003 % (0.000-0.010); GLOMERULAR FILTRATION RATE > 60.0 (>60); GLUCOSE, FASTING 83 MG/DL (70-100); SALICYLATE LEVEL < 1.7 MG/DL (5.0-30.0); SODIUM LEVEL 142 MEQ/L (136-145)
[2018-04-30 13:49] LABS: ACETAMINOPHEN LEVEL < 2.0 UG/ML (10.0-30.0)
[2018-04-30] MEDS: NS 1,000 ML IV (14:30)
[2018-04-30 14:53] LABS: INR 0.89; PROTHROMBIN TIME 12.1 SECONDS (12.1-14.4)
[2018-04-30] MEDS ORDERED: MAALOX 30 ML SUSP *UDC PO (17:15)
[2018-04-30] MEDS ORDERED: MOM 30ML SUSPENSION UDC PO (17:15)
[2018-04-30] MEDS: traZODone 50 MG TAB PO (22:21)
[2018-04-30] MEDS: ACETAMINOPHEN TAB 650MG DOSE (2X325MG) PO (22:24)
[2018-05-01] MEDS: ACETAMINOPHEN TAB 650MG DOSE (2X325MG) PO ×2 (04:40→21:35)
[2018-05-01] MEDS: NICOTINE 21MG/24HR 1 EA TRANSDERMAL TD (08:22)
[2018-05-01] MEDS: NYSTATIN 100,000 UNITS/GM TOPICAL PWD 15 GM TOP ×2 (10:31→22:46)
[2018-05-01] MEDS: SERTRALINE 100 MG TAB PO (12:39)
[2018-05-01] MEDS: traZODone 100 MG TAB PO (22:45)
[2018-05-01] MEDS: PROPRANOLOL 10 MG TAB PO (22:45)
[2018-05-02] MEDS: ACETAMINOPHEN TAB 650MG DOSE (2X325MG) PO ×3 (04:13→23:27)
[2018-05-02] MEDS: ALBUTEROL 90 MCG/ACT 8GM HFA INHALER INH (07:05)
[2018-05-02 07:25] LABS: FREE THYROXINE INDEX 2.6 % (1.4-3.8); T UPTAKE 29 % (33-40); THYROXINE (T4) 9.1 UG/DL (4.5-12.0)
[2018-05-02] MEDS: SERTRALINE 100 MG TAB PO (08:08)
[2018-05-02] MEDS: NYSTATIN 100,000 UNITS/GM TOPICAL PWD 15 GM TOP ×2 (08:08→21:00)
[2018-05-02] MEDS: diphenhydrAMINE 50 MG CAP PO (17:52)
[2018-05-02] MEDS: PROPRANOLOL 10 MG TAB PO (23:27)
[2018-05-02] MEDS: traZODone 100 MG TAB PO (23:27)
[2018-05-03] MEDS: NYSTATIN 100,000 UNITS/GM TOPICAL PWD 15 GM TOP ×2 (08:20→21:00)
[2018-05-03] MEDS: SERTRALINE 100 MG TAB PO (08:20)
[2018-05-03] MEDS: PROPRANOLOL 10 MG TAB PO ×2 (08:24→22:17)
[2018-05-03] MEDS: ALBUTEROL 90 MCG/ACT 8GM HFA INHALER INH (14:04)
[2018-05-03] MEDS: traZODone 100 MG TAB PO (22:15)
[2018-05-04] MEDS: ACETAMINOPHEN TAB 650MG DOSE (2X325MG) PO (04:22)
[2018-05-04] MEDS: NYSTATIN 100,000 UNITS/GM TOPICAL PWD 15 GM TOP (09:00)
[2018-05-04] MEDS: SERTRALINE 100 MG TAB PO (09:14)
[2018-05-06 15:22] LABS: BEDSIDE GLUCOSE 78 MG/DL (70-105)
== END 2018-05-04 11:15 | disposition home or self-care (01) | DRG 885 ==
LOC: M ED 12:02 → M PSY 17:03
PROVIDERS: Psychiatry & Neurology Psychiatry
DX: F33.9 Major depressive disorder, recurrent, unspecified (principal); Z68.42 Body mass index [BMI] 45.0-49.9, adult; R45.851 Suicidal ideations; F60.2 Antisocial personality disorder; Z76.5 Malingerer [conscious simulation]; F19.988 Other psychoactive substance use, unspecified with other psychoactive substance-induced disorder; F41.9 Anxiety disorder, unspecified; E66.9 Obesity, unspecified; E11.9 Type 2 diabetes mellitus without complications; J45.909 Unspecified asthma, uncomplicated; Z79.899 Other long term (current) drug therapy

== ENCOUNTER 2018-06-11 10:59 | Emergency (ER) | payer MEDICARE, MEDICAID | END 2018-06-11 13:41 | disposition home or self-care (01) | LOC: M ED 10:59 | DX: S92.354A Nondisplaced fracture of fifth metatarsal bone, right foot, initial encounter for closed fracture (principal); X50.1XXA Overexertion from prolonged static or awkward postures, initial encounter; Y92.480 Sidewalk as the place of occurrence of the external cause; J45.909 Unspecified asthma, uncomplicated; K21.9 Gastro-esophageal reflux disease without esophagitis; F41.9 Anxiety disorder, unspecified; F32.9 Major depressive disorder, single episode, unspecified; Z79.899 Other long term (current) drug therapy | CPT/HCPCS: 73610 ==

== ENCOUNTER → 2018-10-06 | Outpatient (REF) | payer MEDICARE, MEDICAID ==
[~2018-10-06] MED LIST changes: +ALBU17IN INH; +CITA40TA4 PO; +HYDR-3363 PO; +NYST10PW TOP; +PROAAER10 INH; +PROP10TA56 PO; +PROP10TAB PO; +QUET1TAB7 PO; +QUET1TAB8 PO; +QUET5TAB PO; +SERO1TAB PO; +SERT-138 PO; +TRAZ10TA PO; +TYLE1TAB5 PO
[2018-10-06 18:05] LABS: BASO # 0.1 10^3/uL (0.0-0.2); BASO % 0.8 % (0.0-1.0); EOS # 0.2 10^3/uL (0.0-0.50); EOS % 3.1 % (0.0-3.0); HEMATOCRIT 44.8 % (42.0-52.0); HEMOGLOBIN 14.9 g/dl (13.5-17.5); LYMPH % 15.4 % (24.0-44.0); MEAN CORPUSCULAR HEMOGLOBIN 32.5 pg (27.0-33.0); MEAN CORPUSCULAR HGB CONC 33.3 g/dl (32.0-36.5); MEAN CORPUSCULAR VOLUME 97.8 fl (80.0-96.0); MONO # 0.7 10^3/uL (0.0-0.8); MONO % 10.9 % (0.0-5.0); NEUTROPHILS # 4.5 10^3/uL (1.8-7.7); NEUTROPHILS % 68.9 % (36.0-66.0); PLATELET COUNT, AUTOMATED 255 10^3/uL (150-450); RED BLOOD COUNT 4.58 10^6/uL (4.30-6.10); WHITE BLOOD COUNT 6.5 10^3/uL (4.0-10.0)
[2018-10-06 18:17] LABS: ALBUMIN 3.8 GM/DL (3.2-5.2); ALT/SGPT 29 U/L (12-78); BILIRUBIN,TOTAL 0.2 MG/DL (0.2-1.0); BLOOD UREA NITROGEN 20 MG/DL (7-18); CALCIUM LEVEL 8.9 MG/DL (8.5-10.1); CARBON DIOXIDE LEVEL 26 MEQ/L (21-32); CHLORIDE LEVEL 108 MEQ/L (98-107); CHOLESTEROL LEVEL 162 MG/DL (<200); CREATININE FOR GFR 0.97 MG/DL (0.70-1.30); GLOMERULAR FILTRATION RATE > 60.0 (>60); GLUCOSE, FASTING 101 MG/DL (70-100); HDL CHOLESTEROL 40 MG/DL (>40); LDL CHOLESTEROL 98 MG/DL (<100); NON-HDL-C 122 MG/DL; POTASSIUM SERUM 4.9 MEQ/L (3.5-5.1); SODIUM LEVEL 140 MEQ/L (136-145); TOTAL 25(OH) VITAMIN D 16.4 NG/ML (30.0-100.0); TOTAL PROTEIN 7.1 GM/DL (6.4-8.2); TRIGLYCERIDES LEVEL 119 MG/DL (<150)
[2018-10-06 19:11] LABS: HEMOGLOBIN A1c 5.5 %
== END ==
LOC: M LAB REF 17:22
PROVIDERS: ATTEND Nurse Practitioner Family
DX: Z13.220 Encounter for screening for lipoid disorders (principal); R06.00 Dyspnea, unspecified; Z13.1 Encounter for screening for diabetes mellitus; E78.00 Pure hypercholesterolemia, unspecified

== ENCOUNTER → 2020-03-06 | Outpatient (REF) | payer MEDICARE, MEDICAID ==
[~2020-03-06] MED LIST changes: +NYST-15 TOP; -NYST10PW TOP; +PROP10TA55 PO; -PROP10TAB PO; +QUET100T2 PO; -QUET1TAB8 PO; -TRAZ10TA PO; +TRAZ1TAB12 PO
[2020-03-06 12:02] LABS: APPEARANCE, URINE CLEAR (CLEAR); BACTERIA, URINE AUTO NEGATIVE (NEGATIVE); BILIRUBIN, URINE AUTO NEGATIVE (NEGATIVE); BLOOD, URINE BLOOD NEGATIVE (NEGATIVE); COLOR, URINE AMBER (YELLOW); GLUCOSE, URINE (UA) AUTO NEGATIVE (NEGATIVE); KETONE, URINE AUTO TRACE mg/dL (NEGATIVE); LEUKOCYTE ESTERASE, URINE AUTO NEGATIVE (NEGATIVE); NITRITE, URINE AUTO NEGATIVE (NEGATIVE); PROTEIN, URINE AUTO 1+ mg/dL (NEGATIVE); RBC, URINE AUTO 0 /HPF (0-3); SPECIFIC GRAVITY URINE AUTO 1.042 (1.002-1.035); SQUAMOUS EPITHELIAL CELL UR AU 0 /HPF (0-6); UROBILINOGEN, URINE AUTO 0.2 mg/dL (0.0-2.0); WBC, URINE AUTO 0 /HPF (0-3)
[2020-03-06 17:34] LABS: BASO # 0.1 10^3/uL (0.0-0.2); BASO % 1.2 % (0.0-1.0); EOS # 0.4 10^3/uL (0.0-0.5); EOS % 4.2 % (0.0-3.0); HEMATOCRIT 47.5 % (42.0-52.0); HEMOGLOBIN 15.3 g/dl (13.5-17.5); LYMPH # 1.4 10^3/uL (1.5-5.0); LYMPH % 16.4 % (24.0-44.0); MEAN CORPUSCULAR HGB CONC 32.2 g/dl (32.0-36.5); MEAN CORPUSCULAR VOLUME 102.4 fl (80.0-96.0); MONO # 0.8 10^3/uL (0.0-0.8); MONO % 9.7 % (0.0-5.0); NEUTROPHILS # 5.6 10^3/uL (1.5-8.5); PLATELET COUNT, AUTOMATED 269 10^3/uL (150-450); RED BLOOD COUNT 4.64 10^6/uL (4.30-6.10); WHITE BLOOD COUNT 8.4 10^3/uL (4.0-10.0)
[2020-03-06 17:41] LABS: ALT/SGPT 35 U/L (12-78); BILIRUBIN,TOTAL 0.5 MG/DL (0.2-1.0); BLOOD UREA NITROGEN 20 MG/DL (7-18); CALCIUM LEVEL 8.8 MG/DL (8.5-10.1); CARBON DIOXIDE LEVEL 26 MEQ/L (21-32); CHLORIDE LEVEL 110 MEQ/L (98-107); CHOLESTEROL LEVEL 199 MG/DL (<200); CHOLESTEROL RISK RATIO 6.218 (<5); CREATININE FOR GFR 1.06 MG/DL (0.70-1.30); GLOMERULAR FILTRATION RATE > 60.0 (>60); GLUCOSE, FASTING 107 MG/DL (70-100); HDL CHOLESTEROL 32 MG/DL (>40); LDL CHOLESTEROL 92 MG/DL (<100); NON-HDL-C 167 MG/DL; POTASSIUM SERUM 4.1 MEQ/L (3.5-5.1); SODIUM LEVEL 142 MEQ/L (136-145); TOTAL PROTEIN 7.6 GM/DL (6.4-8.2); TRIGLYCERIDES LEVEL 377 MG/DL (<150)
[2020-03-06 18:25] LABS: HEMOGLOBIN A1c 5.6 %
[2020-03-07 10:29] LABS: TOTAL 25(OH) VITAMIN D 15.2 NG/ML (30.0-100.0)
== END ==
LOC: M LAB REF 11:40
PROVIDERS: ATTEND Nurse Practitioner Family
DX: I10 Essential (primary) hypertension (principal); R51 Headache; E03.9 Hypothyroidism, unspecified; Z13.9 Encounter for screening, unspecified; R06.00 Dyspnea, unspecified; F32.9 Major depressive disorder, single episode, unspecified; J45.30 Mild persistent asthma, uncomplicated; E66.01 Morbid (severe) obesity due to excess calories; Z79.899 Other long term (current) drug therapy

== ENCOUNTER 2020-05-19 14:19 | Emergency (ER) | payer MEDICARE, MEDICAID ==
[~2020-05-19] VITALS: Ht 175.3 cm; Wt 191.8 kg
[2020-05-19] MEDS ORDERED: KEFL500C17 PO (15:49)
[2020-05-19] MEDS ORDERED: nyquil (16:33)
[2020-05-19 16:36] VITALS: BP 148/88
== END 2020-05-19 16:36 | disposition home or self-care (01) ==
LOC: M ED 14:19
DX: J02.9 Acute pharyngitis, unspecified (principal); J45.909 Unspecified asthma, uncomplicated; K21.9 Gastro-esophageal reflux disease without esophagitis; F41.9 Anxiety disorder, unspecified; F33.9 Major depressive disorder, recurrent, unspecified; Z79.899 Other long term (current) drug therapy; Z86.79 Personal history of other diseases of the circulatory system

== ENCOUNTER 2020-08-11 15:11 | Emergency (ER) | payer MEDICARE, MEDICAID ==
[~2020-08-11] VITALS: Ht 175.3 cm; Wt 195.0 kg
[~2020-08-11 15:11] MED LIST changes: +KEFL500C17 PO; +nyquil
[2020-08-11] MEDS ORDERED: BENA25CA4 PO ×2 (15:46→15:47)
[2020-08-11] MEDS ORDERED: TOPA50TA8 PO (15:48)
[2020-08-11] MEDS ORDERED: PERCOCET 5MG/325MG TAB PO ONE (16:15)
--- NOTE | 2020-08-11 16:37 | REP ---
INDICATION: CHEST PAIN. COMPARISON: None. TECHNIQUE: AP and lateral views were obtained. FINDINGS: The superior mediastinal structures are midline. The cardiac silhouette is unremarkable in size, shape, and position. The diaphragmatic surfaces of the lungs are regular, and the costophrenic angles are clear. The pulmonary mullins are clear. The imaged osseous structures are intact. The technique utilized in obtaining the radiograph has magnified the cardiac silhouette and attenuated the interstitial markings. IMPRESSION: There is no acute cardiopulmonary disease. <Electronically signed by Nils Ching > 08/11/20 [id number]
[2020-08-11 17:13] LABS: BASO # 0.1 10^3/uL (0.0-0.2); BASO % 0.8 % (0.0-1.0); EOS # 0.4 10^3/uL (0.0-0.5); EOS % 5.8 % (0.0-3.0); HEMATOCRIT 41.1 % (42.0-52.0); HEMOGLOBIN 13.1 g/dl (13.5-17.5); LYMPH # 1.2 10^3/uL (1.5-5.0); LYMPH % 18.4 % (24.0-44.0); MEAN CORPUSCULAR HEMOGLOBIN 32.8 pg (27.0-33.0); MEAN CORPUSCULAR HGB CONC 31.9 g/dl (32.0-36.5); MONO # 0.7 10^3/uL (0.0-0.8); MONO % 10.1 % (0.0-5.0); NEUTROPHILS # 4.1 10^3/uL (1.5-8.5); NEUTROPHILS % 63.8 % (36.0-66.0); PLATELET COUNT, AUTOMATED 269 10^3/uL (150-450); RED BLOOD COUNT 3.99 10^6/uL (4.30-6.10); WHITE BLOOD COUNT 6.4 10^3/uL (4.0-10.0)
[2020-08-11 17:23] LABS: INR 0.96
[2020-08-11 17:24] LABS: PARTIAL THROMBOPLASTIN TIME 31.6 SECONDS (24.2-38.5)
[2020-08-11 17:33] LABS: ERYTHROCYTE SEDIMENTATION RATE 29 mm/hr (0-15); HEMOGLOBIN A1c 5.5 %
[2020-08-11 17:44] LABS: ALBUMIN 3.6 GM/DL (3.2-5.2); ALT/SGPT 27 U/L (12-78); BILIRUBIN,DIRECT 0.1 MG/DL (0.0-0.2); BILIRUBIN,TOTAL 0.4 MG/DL (0.2-1.0); C REACTIVE PROTEIN QUANTITATIV 2.47 MG/DL (0.00-0.30); CPK CREATINE PHOSPHOKINASE 394 U/L (39-308); MB/CK RELATIVE INDEX 0.76 (< OR =4); NT-PRO BNP 81 PG/ML (<125); TOTAL PROTEIN 6.7 GM/DL (6.4-8.2); TROPONIN I < 0.02 NG/ML (< 0.10)
[2020-08-11] MEDS ORDERED: FUROSEMIDE 20MG/2ML VIAL (J1940) IV ONE (18:00)
[2020-08-11] MEDS ORDERED: LINEZOLID 600 MG in IV 1 EA IV ONE (18:00)
--- NOTE | 2020-08-11 18:20 | REPVR ---
PROCEDURE INFORMATION: Exam: US Duplex Lower Extremity Veins, Bilateral Exam date and time: 08/11/2020 5:19 PM Age: 44 years old Clinical indication: Pain; Leg, lower; Bilateral; Additional info: R/O dvt TECHNIQUE: Imaging protocol: Real-time duplex ultrasound of the extremities with 2-D [place] scale, color Doppler flow and spectral waveform analysis with image documentation. Complete exam focused on the bilateral lower extremity veins. COMPARISON: US Duplex, Ext LOWER veins, bilat 2017-04-02 11:56 FINDINGS: Right deep veins: Unremarkable. The common femoral, femoral, proximal profunda femoral and popliteal veins are patent without thrombus. Normal Doppler waveforms. Normal compressibility and/or augmentation response. Right superficial veins: Saphenofemoral junction is patent without thrombus. Left deep veins: Unremarkable. The common femoral, femoral, proximal profunda femoral and popliteal veins are patent without thrombus. Normal Doppler waveforms. Normal compressibility and/or augmentation response. Left superficial veins: Saphenofemoral junction is patent without thrombus. Soft tissues: Unremarkable. IMPRESSION: No evidence of deep vein thrombosis. Electronically signed by: Jung Drew On 08/11/2020 18:20:44 PM
[2020-08-11] MEDS ORDERED: CLINDAMYCIN 600 MG in IV 1 EA IV ONE (19:00)
[2020-08-11] MEDS ORDERED: CLEO300C2 PO (19:54)
[2020-08-11] MEDS ORDERED: LASI20TA3 PO (19:54)
[2020-08-11 20:01] VITALS: BP 131/72
--- NOTE | 2020-08-11 21:42 | ECGEPIP ---
[facility] - ED Test Date: 2020-08-11 Pat Name: DARLENE SZYMANSKI Department: Room: - Gender: Male Min[employer]er: JHONY : 1975 Requested By: DOMINGO FRANK PA-C Order Number: [id number] Reading MD: Linda Sheikh Measurements Intervals [place] Rate: 85 P: 58 NE: 156 QRS: 9 QRSD: 85 T: 52 QT: 394 QTc: 471 Interpretive Statements SINUS RHYTHM INCREASED RATE 04/30/18 Electronically Signed on 08-11-2020 21:42:52 EST by Linda Sheikh
== END 2020-08-11 20:30 | disposition home or self-care (01) ==
LOC: M ED 15:11
DX: L03.115 Cellulitis of right lower limb (principal); L97.919 Non-pressure chronic ulcer of unspecified part of right lower leg with unspecified severity; R22.43 Localized swelling, mass and lump, lower limb, bilateral; R06.02 Shortness of breath; E11.9 Type 2 diabetes mellitus without complications; I10 Essential (primary) hypertension; J45.909 Unspecified asthma, uncomplicated; K21.9 Gastro-esophageal reflux disease without esophagitis; E03.9 Hypothyroidism, unspecified; F41.9 Anxiety disorder, unspecified; F32.9 Major depressive disorder, single episode, unspecified; E66.9 Obesity, unspecified; Z79.899 Other long term (current) drug therapy
CPT/HCPCS: 71046; 80047; 80076; 82550; 82553; 83036; 83605; 83880; 84484; 85025; 85610; 85652; 85730; 86140; 87040; 93005; 93970; 96365; 96375; 99284; J1940

== ENCOUNTER → 2020-09-11 | Outpatient (REF) | payer MEDICARE, MEDICAID ==
[~2020-09-11] MED LIST changes: +BENA25CA4 PO; +CLEO300C2 PO; +LASI20TA3 PO; +TOPA50TA8 PO
[2020-09-11 14:06] LABS: ALBUMIN 3.5 GM/DL (3.2-5.2); ALT/SGPT 30 U/L (12-78); BILIRUBIN,TOTAL 0.3 MG/DL (0.2-1.0); BLOOD UREA NITROGEN 16 MG/DL (7-18); CALCIUM LEVEL 8.9 MG/DL (8.5-10.1); CARBON DIOXIDE LEVEL 32 MEQ/L (21-32); CHLORIDE LEVEL 107 MEQ/L (98-107); CHOLESTEROL LEVEL 151 MG/DL (<200); CHOLESTEROL RISK RATIO 4.314 (<5); CREATININE FOR GFR 1.09 MG/DL (0.70-1.30); FREE T4 1.01 NG/DL (0.76-1.46); GLOMERULAR FILTRATION RATE > 60.0 (>60); GLUCOSE, FASTING 130 MG/DL (70-100); HDL CHOLESTEROL 35 MG/DL (>40); LDL CHOLESTEROL 74 MG/DL (<100); NON-HDL-C 116 MG/DL; POTASSIUM SERUM 4.3 MEQ/L (3.5-5.1); SODIUM LEVEL 143 MEQ/L (136-145); TOTAL PROTEIN 6.9 GM/DL (6.4-8.2); TRIGLYCERIDES LEVEL 208 MG/DL (<150)
== END ==
LOC: M LAB REF 12:26
PROVIDERS: ATTEND Physician Assistant
DX: E03.9 Hypothyroidism, unspecified (principal); E78.5 Hyperlipidemia, unspecified

== ENCOUNTER 2020-10-28 20:38 | Emergency (ER) | payer MEDICARE, MEDICAID ==
[~2020-10-28] VITALS: Ht 175.3 cm; Wt 195.4 kg
[~2020-10-28 20:38] MED LIST changes: -QUET1TAB7 PO; +QUET25TA3 PO; +QUET50TA3 PO; -QUET5TAB PO
[2020-10-28] MEDS ORDERED: METO1TAB32 (20:54)
[2020-10-28] MEDS ORDERED: TOPI50TA9 (20:54)
[2020-10-28] MEDS ORDERED: LEVO200T4 (20:54)
[2020-10-28] MEDS ORDERED: ACETAMINOPHEN 325 MG TAB PO ONE (21:00)
[2020-10-28 21:16] LABS: BASO # 0.1 10^3/uL (0.0-0.2); BASO % 0.9 % (0.0-1.0); EOS # 0.3 10^3/uL (0.0-0.5); EOS % 4.3 % (0.0-3.0); HEMOGLOBIN 12.9 g/dl (13.5-17.5); LYMPH # 1.2 10^3/uL (1.5-5.0); LYMPH % 15.9 % (24.0-44.0); MEAN CORPUSCULAR HGB CONC 31.5 g/dl (32.0-36.5); MEAN CORPUSCULAR VOLUME 101.7 fl (80.0-96.0); MONO # 0.6 10^3/uL (0.0-0.8); NEUTROPHILS # 5.3 10^3/uL (1.5-8.5); NEUTROPHILS % 70.1 % (36.0-66.0); PLATELET COUNT, AUTOMATED 263 10^3/uL (150-450); RED BLOOD COUNT 4.03 10^6/uL (4.30-6.10); WHITE BLOOD COUNT 7.6 10^3/uL (4.0-10.0)
--- NOTE | 2020-10-28 21:48 | REPVR ---
PROCEDURE INFORMATION: Exam: US Duplex Lower Extremity Veins, Bilateral Exam date and time: 10/28/2020 9:36 PM Age: 44 years old Clinical indication: Pain; Leg, upper; Bilateral; Additional info: Bilateral thigh pain induration, rule out dvt TECHNIQUE: Imaging protocol: Real-time duplex ultrasound of the extremities with 2-D [place] scale, color Doppler flow and spectral waveform analysis with image documentation. Complete exam focused on the bilateral lower extremity veins. COMPARISON: US Duplex, Ext LOWER veins, bilat 08/11/2020 4:59 PM FINDINGS: Limitations: Body habitus and pain tolerance. Right deep veins: No definite DVT is visualized involving the right lower extremity. Right superficial veins: Saphenofemoral junction is patent without thrombus. Left deep veins: No definite DVT is visualized involving the left lower extremity. Left superficial veins: Saphenofemoral junction is patent without thrombus. Soft tissues: Unremarkable. IMPRESSION: Limited examination secondary to body habitus and pain tolerance, no definite DVT is visualized. Electronically signed by: Chico Loaiza On 10/28/2020 21:47:59 PM
[2020-10-28 22:04] LABS: ALBUMIN 3.2 GM/DL (3.2-5.2); ALT/SGPT 27 U/L (12-78); BILIRUBIN,TOTAL 0.2 MG/DL (0.2-1.0); BLOOD UREA NITROGEN 18 MG/DL (7-18); CALCIUM LEVEL 8.8 MG/DL (8.5-10.1); CARBON DIOXIDE LEVEL 34 MEQ/L (21-32); CHLORIDE LEVEL 106 MEQ/L (98-107); CREATININE FOR GFR 1.12 MG/DL (0.70-1.30); GLOMERULAR FILTRATION RATE > 60.0 (>60); GLUCOSE, FASTING 149 MG/DL (70-100); POTASSIUM SERUM 4.3 MEQ/L (3.5-5.1); SODIUM LEVEL 143 MEQ/L (136-145); TOTAL PROTEIN 6.6 GM/DL (6.4-8.2)
[2020-10-28] MEDS ORDERED: DOXY100C PO (22:19)
[2020-10-28] MEDS ORDERED: DOXYCYCLINE HYCLATE 100MG TABLET PO ONE (22:30)
[2020-10-28 23:27] VITALS: BP 150/8
== END 2020-10-28 23:29 | disposition home or self-care (01) ==
LOC: M ED 20:38
DX: L03.119 Cellulitis of unspecified part of limb (principal); R22.43 Localized swelling, mass and lump, lower limb, bilateral; E66.01 Morbid (severe) obesity due to excess calories; I10 Essential (primary) hypertension; K21.9 Gastro-esophageal reflux disease without esophagitis; E03.9 Hypothyroidism, unspecified; F41.9 Anxiety disorder, unspecified; F32.9 Major depressive disorder, single episode, unspecified; Z79.899 Other long term (current) drug therapy

== ENCOUNTER → 2020-12-14 | Outpatient (REF) | payer MEDICARE, MEDICAID ==
[~2020-12-14] MED LIST changes: +DOXY100C PO; +LEVO200T4; +METO1TAB32; +TOPI50TA9
[2020-12-14 17:37] LABS: BASO # 0.1 10^3/uL (0.0-0.2); BASO % 1.2 % (0.0-1.0); EOS # 0.3 10^3/uL (0.0-0.5); EOS % 5.3 % (0.0-3.0); HEMATOCRIT 42.9 % (42.0-52.0); HEMOGLOBIN 13.7 g/dl (13.5-17.5); LYMPH # 1.3 10^3/uL (1.5-5.0); LYMPH % 21.4 % (24.0-44.0); MEAN CORPUSCULAR HEMOGLOBIN 31.4 pg (27.0-33.0); MEAN CORPUSCULAR HGB CONC 31.9 g/dl (32.0-36.5); MEAN CORPUSCULAR VOLUME 98.4 fl (80.0-96.0); MONO # 0.8 10^3/uL (0.0-0.8); MONO % 13.2 % (2.0-8.0); NEUTROPHILS # 3.4 10^3/uL (1.5-8.5); NEUTROPHILS % 57.2 % (36.0-66.0); PLATELET COUNT, AUTOMATED 280 10^3/uL (150-450); RED BLOOD COUNT 4.36 10^6/uL (4.30-6.10); WHITE BLOOD COUNT 5.9 10^3/uL (4.0-10.0)
[2020-12-14 17:49] LABS: HEMOGLOBIN A1c 6.2 %
[2020-12-14 18:07] LABS: ALBUMIN 3.7 GM/DL (3.2-5.2); ALT/SGPT 39 U/L (12-78); BILIRUBIN,TOTAL 0.4 MG/DL (0.2-1.0); BLOOD UREA NITROGEN 13 MG/DL (7-18); CALCIUM LEVEL 8.6 MG/DL (8.5-10.1); CARBON DIOXIDE LEVEL 29 MEQ/L (21-32); CHLORIDE LEVEL 106 MEQ/L (98-107); CHOLESTEROL LEVEL 168 MG/DL (<200); CHOLESTEROL RISK RATIO 5.419 (<5); CREATININE FOR GFR 1.03 MG/DL (0.70-1.30); FREE T4 1.02 NG/DL (0.76-1.46); GLOMERULAR FILTRATION RATE > 60.0 (>60); GLUCOSE, FASTING 130 MG/DL (70-100); HDL CHOLESTEROL 31 MG/DL (>40); LDL CHOLESTEROL 102 MG/DL (<100); NON-HDL-C 137 MG/DL; POTASSIUM SERUM 4.5 MEQ/L (3.5-5.1); SODIUM LEVEL 140 MEQ/L (136-145); TOTAL PROTEIN 7.1 GM/DL (6.4-8.2); TRIGLYCERIDES LEVEL 173 MG/DL (<150)
[2020-12-14 18:15] LABS: TOTAL 25(OH) VITAMIN D 12.7 NG/ML (30.0-100.0)
== END ==
LOC: M LAB REF 16:54
PROVIDERS: ATTEND Nurse Practitioner Family
DX: E66.01 Morbid (severe) obesity due to excess calories (principal); E03.9 Hypothyroidism, unspecified; E55.9 Vitamin D deficiency, unspecified; J45.998 Other asthma

== ENCOUNTER → 2022-07-05 | Outpatient (REF) | payer MEDICARE, MEDICAID ==
[~2022-07-05] MED LIST changes: -CITA40TA4 PO; +CITA40TA7 PO; -DOXY100C PO; +DOXY100C3 PO; +QUET1TAB17 PO; -QUET25TA3 PO; -QUET50TA3 PO; +QUET50TA4 PO
[2022-07-05 18:16] LABS: BLOOD UREA NITROGEN 14 MG/DL (7-18); CALCIUM LEVEL 9.3 MG/DL (8.5-10.1); CARBON DIOXIDE LEVEL 27 MEQ/L (21-32); CHLORIDE LEVEL 107 MEQ/L (98-107); CREATININE FOR GFR 0.97 MG/DL (0.70-1.30); GLOMERULAR FILTRATION RATE > 60.0 (>60); GLUCOSE, FASTING 153 MG/DL (70-100); POTASSIUM SERUM 4.4 MEQ/L (3.5-5.1); SODIUM LEVEL 137 MEQ/L (136-145)
== END ==
LOC: M LAB REF 17:04
PROVIDERS: ATTEND Physician Assistant
DX: R60.0 Localized edema (principal)

== ENCOUNTER 2022-10-16 11:33 | Emergency (ER) | payer MEDICARE, MEDICAID ==
[~2022-10-16] VITALS: Ht 175.3 cm; Wt 190.5 kg
[2022-10-16 12:24] LABS: BASO # 0.1 10^3/uL (0.0-0.2); BASO % 0.7 % (0.0-1.0); EOS # 0.3 10^3/uL (0.0-0.5); EOS % 3.1 % (0.0-3.0); HEMATOCRIT 44.3 % (42.0-52.0); HEMOGLOBIN 14.9 g/dl (13.5-17.5); LYMPH # 1.6 10^3/uL (1.5-5.0); LYMPH % 19.6 % (24.0-44.0); MEAN CORPUSCULAR HEMOGLOBIN 32.3 pg (27.0-33.0); MEAN CORPUSCULAR HGB CONC 33.6 g/dl (32.0-36.5); MEAN CORPUSCULAR VOLUME 95.9 fl (80.0-96.0); MONO # 0.7 10^3/uL (0.0-0.8); MONO % 8.2 % (2.0-8.0); NEUTROPHILS # 5.5 10^3/uL (1.5-8.5); NEUTROPHILS % 67.5 % (36.0-66.0); PLATELET COUNT, AUTOMATED 252 10^3/uL (150-450); RED BLOOD COUNT 4.62 10^6/uL (4.30-6.10); WHITE BLOOD COUNT 8.2 10^3/uL (4.0-10.0)
[2022-10-16] MEDS ORDERED: METF10004 (12:33)
[2022-10-16] MEDS ORDERED: FURO20TA2 (12:33)
[2022-10-16 13:55] LABS: BILIRUBIN,DIRECT 0.2 MG/DL (<0.4)
[2022-10-16 13:57] LABS: THYROID STIMULATING HORMONE 5.853 uIU/ML (0.55-4.78)
[2022-10-16 13:59] LABS: OSMOLALITY SERUM 291 MOSM/KG (275-295)
[2022-10-16 14:03] LABS: ALBUMIN 3.6 G/DL (3.2-5.2); ALKALINE PHOSPHATASE 63 U/L (46-116); ALT/SGPT 37 U/L (7.0-40); AST/SGOT 35 U/L (<34); BILIRUBIN,TOTAL 0.5 MG/DL (0.3-1.2); BLOOD UREA NITROGEN 16 MG/DL (9-23); CALCIUM LEVEL 9.2 MG/DL (8.5-10.1); CARBON DIOXIDE LEVEL 28 MMOL/L (20-31); CHLORIDE LEVEL 104 MMOL/L (98-107); CREATININE FOR GFR 1.03 MG/DL (0.70-1.30); GLOMERULAR FILTRATION RATE > 60.0 (>60); GLUCOSE, FASTING 113 MG/DL (60-100); POTASSIUM SERUM 4.1 MMOL/L (3.5-5.1); SODIUM LEVEL 138 MMOL/L (136-145); TOTAL PROTEIN 6.7 G/DL (5.7-8.2)
[2022-10-16 14:30] VITALS: BP 133/68
== END 2022-10-16 16:05 | disposition home or self-care (01) ==
LOC: M ED 11:33
DX: R25.9 Unspecified abnormal involuntary movements (principal); E11.9 Type 2 diabetes mellitus without complications; I10 Essential (primary) hypertension; J45.909 Unspecified asthma, uncomplicated; R41.83 Borderline intellectual functioning; F63.9 Impulse disorder, unspecified; Z79.52 Long term (current) use of systemic steroids; Z79.4 Long term (current) use of insulin; Z79.899 Other long term (current) drug therapy

== ENCOUNTER → 2022-11-01 | Outpatient (REF) | payer MEDICARE, MEDICAID ==
[~2022-11-01] MED LIST changes: +FURO20TA2; +METF10004
[2022-11-01 17:42] LABS: HEMOGLOBIN A1c 7.5 % (4.0-6.0)
== END ==
LOC: M LAB REF 16:20
PROVIDERS: ATTEND Physician Assistant
DX: E11.65 Type 2 diabetes mellitus with hyperglycemia (principal)

== ENCOUNTER 2023-01-14 15:07 | Emergency (ER) | payer OTHER, MEDICARE, MEDICAID ==
[~2023-01-14] VITALS: Ht 175.3 cm; Wt 195.0 kg
[~2023-01-14 15:07] MED LIST changes: -FURO20TA2; +FURO20TA2 PO; -LEVO200T4; +LEVO200T4 PO; -METF10004; +METF10004 PO; -METO1TAB32; +METO1TAB32 PO; +TOPI-254; -TOPI50TA9
[2023-01-14 16:16] LABS: BASO # 0.1 10^3/uL (0.0-0.2); BASO % 0.9 % (0.0-1.0); EOS # 0.2 10^3/uL (0.0-0.5); EOS % 3.3 % (0.0-3.0); HEMATOCRIT 45.7 % (42.0-52.0); HEMOGLOBIN 15.1 g/dl (13.5-17.5); LYMPH # 1.2 10^3/uL (1.5-5.0); LYMPH % 17.7 % (24.0-44.0); MEAN CORPUSCULAR VOLUME 96.8 fl (80.0-96.0); MONO # 0.5 10^3/uL (0.0-0.8); MONO % 7.1 % (2.0-8.0); NEUTROPHILS # 4.7 10^3/uL (1.5-8.5); NEUTROPHILS % 70.4 % (36.0-66.0); PLATELET COUNT, AUTOMATED 244 10^3/uL (150-450); RED BLOOD COUNT 4.72 10^6/uL (4.30-6.10); WHITE BLOOD COUNT 6.7 10^3/uL (4.0-10.0)
[2023-01-14 16:40] LABS: ALBUMIN 3.5 G/DL (3.2-5.2); ALKALINE PHOSPHATASE 77 U/L (46-116); ALT/SGPT 46 U/L (7.0-40); AST/SGOT 58 U/L (<34); BILIRUBIN,DIRECT 0.2 MG/DL (<0.4); BILIRUBIN,TOTAL 0.5 MG/DL (0.3-1.2); BLOOD UREA NITROGEN 15 MG/DL (9-23); CALCIUM LEVEL 8.7 MG/DL (8.5-10.1); CARBON DIOXIDE LEVEL 33 MMOL/L (20-31); CHLORIDE LEVEL 98 MMOL/L (98-107); CREATININE FOR GFR 0.76 MG/DL (0.70-1.30); GLOMERULAR FILTRATION RATE > 60.0 (>60); GLUCOSE, FASTING 309 MG/DL (60-100); POTASSIUM SERUM 4.6 MMOL/L (3.5-5.1); SODIUM LEVEL 135 MMOL/L (136-145)
[2023-01-14 17:32] LABS: AMPHETAMINES LEVEL URINE NEGATIVE (NEGATIVE); BARBITURATES URINE NEGATIVE (NEGATIVE); BENZODIAZEPINES URINE NEGATIVE (NEGATIVE); COCAINE METABOLITE URINE NEGATIVE (NEGATIVE); PHENCYCLIDINE URINE NEGATIVE (NEGATIVE)
[2023-01-14 17:33] LABS: CANNABINOIDS URINE NEGATIVE (NEGATIVE); METHADONE URINE NEGATIVE (NEGATIVE); OPIATES URINE NEGATIVE (NEGATIVE)
[2023-01-14 18:01] VITALS: BP 168/80
== END 2023-01-14 18:11 | disposition home or self-care (01) ==
LOC: EDBD 15:07 → M ED 15:07
DX: R25.1 Tremor, unspecified (principal); E11.40 Type 2 diabetes mellitus with diabetic neuropathy, unspecified; I10 Essential (primary) hypertension; J45.909 Unspecified asthma, uncomplicated; E03.9 Hypothyroidism, unspecified; F79 Unspecified intellectual disabilities; F39 Unspecified mood [affective] disorder; Z79.899 Other long term (current) drug therapy; Z88.8 Allergy status to other drugs, medicaments and biological substances

== ENCOUNTER 2023-01-16 09:45 | Emergency (ER) | payer MEDICAID, MEDICARE, OTHER ==
[~2023-01-16] VITALS: Ht 175.3 cm; Wt 195.0 kg
[2023-01-16 10:27] LABS: VENOUS BASE EXCESS 1.5 (-2.0-2.0); VENOUS O2 SATURATION 90.4 % (60.0-80.0); VENOUS PARTIAL PRESSURE O2 58.7 mmHg (30.0-50.0); VENOUS PH 7.357 UNITS (7.330-7.430); VENOUS STANDARD HCO3 25.6 MEQ/L; VENOUS TOTAL CO2 29.5 MEQ/L (24.0-28.0)
[2023-01-16 10:39] LABS: BASO # 0.1 10^3/uL (0.0-0.2); BASO % 1.2 % (0.0-1.0); EOS # 0.3 10^3/uL (0.0-0.5); EOS % 3.8 % (0.0-3.0); LYMPH # 1.5 10^3/uL (1.5-5.0); LYMPH % 23.4 % (24.0-44.0); MEAN CORPUSCULAR HEMOGLOBIN 31.9 pg (27.0-33.0); MEAN CORPUSCULAR HGB CONC 32.6 g/dl (32.0-36.5); MEAN CORPUSCULAR VOLUME 97.9 fl (80.0-96.0); MONO # 0.6 10^3/uL (0.0-0.8); MONO % 9.3 % (2.0-8.0); NEUTROPHILS # 4.1 10^3/uL (1.5-8.5); NEUTROPHILS % 61.8 % (36.0-66.0); PLATELET COUNT, AUTOMATED 241 10^3/uL (150-450); WHITE BLOOD COUNT 6.6 10^3/uL (4.0-10.0)
[2023-01-16 11:09] LABS: ETHYL ALCOHOL (ETHANOL) < 0.003 % (0.000-0.010)
[2023-01-16 11:10] LABS: CPK CREATINE PHOSPHOKINASE 172 U/L (46-171)
[2023-01-16 11:12] LABS: AMPHETAMINES LEVEL URINE NEGATIVE (NEGATIVE); BARBITURATES URINE NEGATIVE (NEGATIVE); BENZODIAZEPINES URINE NEGATIVE (NEGATIVE); CANNABINOIDS URINE NEGATIVE (NEGATIVE); COCAINE METABOLITE URINE NEGATIVE (NEGATIVE); METHADONE URINE NEGATIVE (NEGATIVE); OPIATES URINE NEGATIVE (NEGATIVE); PHENCYCLIDINE URINE NEGATIVE (NEGATIVE)
[2023-01-16 11:17] LABS: BLOOD UREA NITROGEN 24 MG/DL (9-23); CALCIUM LEVEL 8.4 MG/DL (8.5-10.1); CARBON DIOXIDE LEVEL 28 MMOL/L (20-31); CHLORIDE LEVEL 100 MMOL/L (98-107); CK-MB VALUE MASS < 1.0 NG/ML (<3.6); CREATININE FOR GFR 0.88 MG/DL (0.70-1.30); FREE T4 1.43 NG/DL (0.89-1.76); GLOMERULAR FILTRATION RATE > 60.0 (>60); GLUCOSE, FASTING 294 MG/DL (60-100); MB/CK RELATIVE INDEX 0.58 (< OR =4); POTASSIUM SERUM 4.4 MMOL/L (3.5-5.1); RSV AMPLIFICATION NEGATIVE (NEGATIVE); SODIUM LEVEL 135 MMOL/L (136-145); THYROID STIMULATING HORMONE 3.561 uIU/ML (0.55-4.78)
[2023-01-16] MEDS ORDERED: TOPA100T12 PO ×2 (13:13→18:50)
[2023-01-16] MEDS ORDERED: TOPIRAMATE (TopAMAX) 100 MG TAB PO ONE (13:55)
[2023-01-16 14:00] VITALS: BP 125/86
[2023-01-16] MEDS ORDERED: MOM 30ML SUSPENSION UDC PO PRN (18:25)
[2023-01-16] MEDS ORDERED: ACETAMINOPHEN TAB 650MG DOSE (2X325MG) PO PRN (18:25)
[2023-01-16] MEDS ORDERED: ROPI0.2534 PO (18:50)
[2023-01-16] MEDS ORDERED: GLUCOSE 4GM CHEW TABLET PO PRN (18:50)
[2023-01-16] MEDS ORDERED: ACET-1349 PO (18:50)
[2023-01-16] MEDS ORDERED: DEXTROSE 50% 50ML SYRINGE IV PRN (18:50)
[2023-01-16] MEDS ORDERED: SERO50TA PO (18:50)
[2023-01-16] MEDS ORDERED: TRUL10IN INJ (18:50)
[2023-01-16] MEDS ORDERED: SYNT50TA PO (18:50)
[2023-01-16] MEDS ORDERED: ZOLO100T PO (18:50)
[2023-01-16] MEDS ORDERED: GLUCAGON INJ 1MG VIAL SC PRN (18:50)
[2023-01-16] MEDS ORDERED: LEVA45AE INH (18:50)
[2023-01-16] MEDS ORDERED: AMMO12CR7 TOP (18:50)
[2023-01-16] MEDS ORDERED: METF500T13 PO (18:50)
[2023-01-16] MEDS ORDERED: VITA1CAP25 PO (18:50)
[2023-01-16] MEDS ORDERED: VENTAER INH (18:50)
[2023-01-16] MEDS ORDERED: INSULIN LISPRO (NovoLOG) PER UNIT SC SCH (21:00)
[2023-01-16] MEDS ORDERED: TOPIRAMATE (TopAMAX) 100 MG TAB PO SCH (21:00)
[2023-01-16] MEDS ORDERED: DOCUSATE SODIUM 100MG CAPSULE PO SCH (21:00)
[2023-01-17] MEDS ORDERED: INSULIN LISPRO (NovoLOG) PER UNIT SC SCH (07:30)
[2023-01-17] MEDS ORDERED: RIVAROXABAN 10MG TAB (XARELTO) PO SCH (18:00)
== END 2023-01-16 14:14 | disposition home or self-care (01) ==
LOC: EDBD 09:45 → M ED 09:45
DX: R25.1 Tremor, unspecified (principal); E11.9 Type 2 diabetes mellitus without complications; I10 Essential (primary) hypertension; E03.9 Hypothyroidism, unspecified; J45.909 Unspecified asthma, uncomplicated; Z88.8 Allergy status to other drugs, medicaments and biological substances; Z79.51 Long term (current) use of inhaled steroids; Z79.899 Other long term (current) drug therapy

== ENCOUNTER 2023-01-16 17:07 | Observation (INO) | payer OTHER ==
[~2023-01-16] VITALS: Ht 175.3 cm; Wt 189.2 kg
[~2023-01-16 17:07] MED LIST changes: +TOPA100T12 PO
[2023-01-16] MEDS ORDERED: ZOLO100T PO (18:50)
[2023-01-16] MEDS ORDERED: AMMO12CR7 TOP (18:50)
[2023-01-16] MEDS ORDERED: ROPI0.2534 PO (18:50)
[2023-01-16] MEDS ORDERED: TOPA100T12 PO (18:50)
[2023-01-16] MEDS ORDERED: SERO50TA PO (18:50)
[2023-01-16] MEDS ORDERED: ACET-1349 PO (18:50)
[2023-01-16] MEDS ORDERED: TRUL10IN INJ (18:50)
[2023-01-16] MEDS ORDERED: LEVA45AE INH (18:50)
[2023-01-16] MEDS ORDERED: METF500T13 PO (18:50)
[2023-01-16] MEDS ORDERED: SYNT50TA PO (18:50)
[2023-01-16] MEDS ORDERED: VITA1CAP25 PO (18:50)
[2023-01-16] MEDS ORDERED: VENTAER INH (18:50)
[2023-01-16] MEDS ORDERED: DEXTROSE 50% 50ML SYRINGE IV PRN (18:55)
[2023-01-16] MEDS ORDERED: HOME MED LIST COMPLETE! XX SCH (18:55)
[2023-01-16] MEDS ORDERED: GLUCOSE 4GM CHEW TABLET PO PRN (18:55)
[2023-01-16] MEDS ORDERED: GLUCAGON INJ 1MG VIAL SC PRN (18:55)
[2023-01-16] MEDS ORDERED: ALBUTEROL 90 MCG/ACT 8GM HFA INHALER INH PRN (19:05)
[2023-01-16] MEDS ORDERED: LACTIC ACID 12% LOTION 225 GM BTL TOP PRN (19:05)
[2023-01-16] MEDS ORDERED: PROPRANOLOL 10 MG TAB PO PRN (19:05)
[2023-01-16] MEDS ORDERED: LEVALBUTEROL HFA 45MCG/ACT 15GM INHALER INH PRN (19:05)
[2023-01-16 19:49] LABS: INR 0.94; PROTHROMBIN TIME 12.8 SECONDS (12.5-14.5)
[2023-01-16] MEDS ORDERED: PROHANCE 279.3MG/ML 15ML VIAL As Ordered ONE (21:14)
[2023-01-16] MEDS ORDERED: PROHANCE 279.3MG/ML 5ML VIAL As Ordered ONE (21:14)
[2023-01-16 22:15] VITALS: BP 136/85
[2023-01-16] MEDS: TOPIRAMATE (TopAMAX) 100 MG TAB PO SCH (22:42)
[2023-01-16] MEDS: QUEtiapine FUMARATE 50MG TAB PO SCH (22:42)
[2023-01-16] MEDS: INSULIN LISPRO (NovoLOG) PER UNIT SC SCH (22:45)
[2023-01-16 23:00] VITALS: BP_SYST 138; BP_SYST 142; BP_SYST 144; BP_DIAS 84; BP_DIAS 89
[2023-01-16] MEDS: ACETAMINOPHEN TAB 650MG DOSE (2X325MG) PO PRN (23:26)
[2023-01-17 02:00] VITALS: BP 132/88
[2023-01-17 06:00] VITALS: BP 131/85
[2023-01-17] MEDS: LEVOTHYROXINE 50MCG TABLET (0.05MG) PO SCH (06:07)
[2023-01-17] MEDS: LEVOTHYROXINE 100MCG TABLET (0.1MG) PO SCH (06:08)
[2023-01-17 06:56] LABS: HEMATOCRIT 45.7 % (42.0-52.0); HEMOGLOBIN 14.9 g/dl (13.5-17.5); MEAN CORPUSCULAR HGB CONC 32.6 g/dl (32.0-36.5); MEAN CORPUSCULAR VOLUME 98.1 fl (80.0-96.0); PLATELET COUNT, AUTOMATED 241 10^3/uL (150-450); RED BLOOD COUNT 4.66 10^6/uL (4.30-6.10); WHITE BLOOD COUNT 6.7 10^3/uL (4.0-10.0)
[2023-01-17 07:29] LABS: BLOOD UREA NITROGEN 22 MG/DL (9-23); CALCIUM LEVEL 9.2 MG/DL (8.5-10.1); CARBON DIOXIDE LEVEL 28 MMOL/L (20-31); CHLORIDE LEVEL 103 MMOL/L (98-107); GLOMERULAR FILTRATION RATE > 60.0 (>60); GLUCOSE, FASTING 261 MG/DL (60-100); POTASSIUM SERUM 4.3 MMOL/L (3.5-5.1); SODIUM LEVEL 138 MMOL/L (136-145)
[2023-01-17] MEDS ORDERED: METOPROLOL SUCC *XL* 25MG TAB (TopROL *XL*) PO SCH (09:00)
[2023-01-17] MEDS: INSULIN LISPRO (NovoLOG) PER UNIT SC SCH ×4 (09:20→22:40)
[2023-01-17] MEDS: QUEtiapine FUMARATE 50MG TAB PO SCH ×2 (09:21→22:38)
[2023-01-17] MEDS: TOPIRAMATE (TopAMAX) 100 MG TAB PO SCH ×2 (09:22→22:38)
[2023-01-17] MEDS: rOPINIRole 0.25 MG TAB(REQUIP) PO SCH (09:22)
[2023-01-17] MEDS: FUROSEMIDE 20 MG TAB PO SCH (09:22)
[2023-01-17] MEDS: SERTRALINE 100 MG TAB PO SCH (09:22)
[2023-01-17 14:00] VITALS: BP 126/78
[2023-01-17 14:27] LABS: PERCENT SATURATION 26.1 % (19.7-50.0)
[2023-01-17 14:31] LABS: FERRITIN 138.1 NG/ML (10.5-307.3)
[2023-01-17 14:33] LABS: FOLATE 10.37 NG/ML (>5.4)
[2023-01-17] MEDS ORDERED: RIVAROXABAN 10MG TAB (XARELTO) PO SCH (18:00)
[2023-01-17 22:00] VITALS: BP 131/80
[2023-01-17] MEDS: ACETAMINOPHEN TAB 650MG DOSE (2X325MG) PO PRN (22:39)
[2023-01-18 02:00] VITALS: BP 120/72
[2023-01-18] MEDS: LEVOTHYROXINE 100MCG TABLET (0.1MG) PO SCH (05:55)
[2023-01-18] MEDS: LEVOTHYROXINE 50MCG TABLET (0.05MG) PO SCH (05:55)
[2023-01-18 06:00] VITALS: BP 120/73
[2023-01-18] MEDS: FUROSEMIDE 20 MG TAB PO SCH (08:58)
[2023-01-18] MEDS: TOPIRAMATE (TopAMAX) 100 MG TAB PO SCH (08:58)
[2023-01-18] MEDS: SERTRALINE 100 MG TAB PO SCH (08:58)
[2023-01-18] MEDS: rOPINIRole 0.25 MG TAB(REQUIP) PO SCH (08:58)
[2023-01-18 08:59] VITALS: BP 126/78
[2023-01-18] MEDS: QUEtiapine FUMARATE 50MG TAB PO SCH (08:59)
[2023-01-18] MEDS ORDERED: METOPROLOL SUCC *XL* 12.5MG PER 1/2 TAB (TopROL *XL*) PO SCH (09:00)
[2023-01-18] MEDS: INSULIN LISPRO (NovoLOG) PER UNIT SC SCH (09:01)
[2023-01-18] MEDS ORDERED: TOPA100T12 PO (10:09)
== END 2023-01-18 11:20 | disposition home or self-care (01) ==
LOC: M ED 17:07 → M ED INP 18:24 → ENRESERV 19:06 → M MSPAV 22:15
PROVIDERS: ADMIT Student in an Organized Health Care Education/Training Program; ATTEND Student in an Organized Health Care Education/Training Program
DX: G40.89 Other seizures (principal); E11.9 Type 2 diabetes mellitus without complications; I87.2 Venous insufficiency (chronic) (peripheral); I10 Essential (primary) hypertension; F41.9 Anxiety disorder, unspecified; F32.A Depression, unspecified; F70 Mild intellectual disabilities; E55.9 Vitamin D deficiency, unspecified; G25.81 Restless legs syndrome; J45.909 Unspecified asthma, uncomplicated; R25.1 Tremor, unspecified; E03.9 Hypothyroidism, unspecified; Z79.84 Long term (current) use of oral hypoglycemic drugs; Z79.899 Other long term (current) drug therapy; Z88.8 Allergy status to other drugs, medicaments and biological substances; Z79.51 Long term (current) use of inhaled steroids
CPT/HCPCS: 36415; 70450; 70553; 71045; 80048; 80307; 82077; 82550; 82553; 82607; 82728; 82746; 82803; 83550; 83605; 84146; 84439; 84443; 84484; 85025; 85027; 85610; 87631; 93005; 93041; 94760; 95819; 97161; 97165; 97530; 99284; 99285; A9576; G0378; J1815

== ENCOUNTER → 2023-06-13 | Outpatient (CLI) | payer OTHER, MEDICAID, MEDICARE ==
[~2023-06-13] MED LIST changes: +ACET-1349 PO; +AMMO12CR7 TOP; +LEVA45AE INH; +METF500T13 PO; +ROPI0.2534 PO; +SERO50TA PO; +SYNT50TA PO; +TRUL10IN INJ; +VENTAER INH; +VITA1CAP25 PO; +ZOLO100T PO
[2023-06-13 13:17] LABS: BLOOD UREA NITROGEN 18 MG/DL (9-23); CALCIUM LEVEL 8.9 MG/DL (8.5-10.1); CARBON DIOXIDE LEVEL 27 MMOL/L (20-31); CHLORIDE LEVEL 109 MMOL/L (98-107); CREATININE FOR GFR 1.06 MG/DL (0.70-1.30); GLOMERULAR FILTRATION RATE > 60.0 (>60); GLUCOSE, FASTING 117 MG/DL (60-100); POTASSIUM SERUM 3.7 MMOL/L (3.5-5.1); SODIUM LEVEL 141 MMOL/L (136-145)
[2023-06-13 13:34] LABS: HEMOGLOBIN A1c 5.1 % (4.0-6.0)
== END ==
LOC: M WUC 09:21
PROVIDERS: ATTEND Physician Assistant
DX: E11.65 Type 2 diabetes mellitus with hyperglycemia (principal)

== ENCOUNTER → 2023-06-13 | Outpatient (CLI) | payer OTHER, MEDICAID, MEDICARE ==
[2023-06-13 13:17] LABS: ALBUMIN 3.6 G/DL (3.2-5.2); ALKALINE PHOSPHATASE 60 U/L (46-116); ALT/SGPT 19 U/L (7.0-40); AST/SGOT 19 U/L (<34); BASO # 0.1 10^3/uL (0.0-0.2); BASO % 0.9 % (0.0-1.0); BILIRUBIN,TOTAL 0.3 MG/DL (0.3-1.2); BLOOD UREA NITROGEN 19 MG/DL (9-23); CALCIUM LEVEL 8.9 MG/DL (8.5-10.1); CARBON DIOXIDE LEVEL 26 MMOL/L (20-31); CHLORIDE LEVEL 108 MMOL/L (98-107); CREATININE FOR GFR 1.05 MG/DL (0.70-1.30); EOS # 0.3 10^3/uL (0.0-0.5); EOS % 4.5 % (0.0-3.0); GLOMERULAR FILTRATION RATE > 60.0 (>60); GLUCOSE, FASTING 117 MG/DL (60-100); HEMATOCRIT 45.8 % (42.0-52.0); HEMOGLOBIN 14.8 g/dl (13.5-17.5); LYMPH # 1.7 10^3/uL (1.5-5.0); LYMPH % 25.6 % (24.0-44.0); MEAN CORPUSCULAR HEMOGLOBIN 31.4 pg (27.0-33.0); MEAN CORPUSCULAR HGB CONC 32.3 g/dl (32.0-36.5); MEAN CORPUSCULAR VOLUME 97.2 fl (80.0-96.0); MONO # 0.9 10^3/uL (0.0-0.8); MONO % 12.8 % (2.0-8.0); NEUTROPHILS # 3.7 10^3/uL (1.5-8.5); NEUTROPHILS % 55.6 % (36.0-66.0); PLATELET COUNT, AUTOMATED 250 10^3/uL (150-450); POTASSIUM SERUM 3.7 MMOL/L (3.5-5.1); RED BLOOD COUNT 4.71 10^6/uL (4.30-6.10); SODIUM LEVEL 141 MMOL/L (136-145); TOTAL PROTEIN 6.9 G/DL (5.7-8.2); WHITE BLOOD COUNT 6.7 10^3/uL (4.0-10.0)
== END ==
LOC: M WUC 09:24
PROVIDERS: ATTEND Psychiatry & Neurology Neurology
DX: R51.9 Headache, unspecified (principal)

== ENCOUNTER → 2023-08-27 | Outpatient (REF) | payer OTHER, MEDICAID, MEDICARE ==
[~2023-08-27] MED LIST changes: +TOPI-21; -TOPI-254
[2023-08-27 16:57] LABS: CREATININE, URINE 110.3 MG/DL; MALB URINE SIEMENS < 3.0 MG/L; MAU/CREAT RATIO 2.7 MCG/MG (0.0-30.0)
[2023-08-27 17:39] LABS: THYROID STIMULATING HORMONE 2.042 uIU/ML (0.55-4.78)
[2023-08-27 17:40] LABS: ALBUMIN 3.6 G/DL (3.2-5.2); ALKALINE PHOSPHATASE 60 U/L (46-116); ALT/SGPT 26 U/L (7.0-40); AST/SGOT 24 U/L (<34); BILIRUBIN,TOTAL 0.3 MG/DL (0.3-1.2); BLOOD UREA NITROGEN 21 MG/DL (9-23); CALCIUM LEVEL 9.2 MG/DL (8.5-10.1); CARBON DIOXIDE LEVEL 26 MMOL/L (20-31); CHLORIDE LEVEL 108 MMOL/L (98-107); CHOLESTEROL LEVEL 190 MG/DL (<200); CHOLESTEROL RISK RATIO 4.93 (<5); CREATININE FOR GFR 0.97 MG/DL (0.70-1.30); GLOMERULAR FILTRATION RATE > 60.0 (>60); GLUCOSE, FASTING 111 MG/DL (60-100); HDL CHOLESTEROL 38.5 MG/DL (>40); LDL CHOLESTEROL 97.3 MG/DL (<100); NON-HDL-C 151.5 MG/DL; POTASSIUM SERUM 4.5 MMOL/L (3.5-5.1); SODIUM LEVEL 142 MMOL/L (136-145); TOTAL 25(OH) VITAMIN D 26.5 NG/ML (20.0-100.0); TOTAL PROTEIN 7.1 G/DL (5.7-8.2); TRIGLYCERIDES LEVEL 271 MG/DL (<150)
== END ==
LOC: M LAB REF 16:08
PROVIDERS: ATTEND Family Medicine Addiction Medicine
DX: E11.65 Type 2 diabetes mellitus with hyperglycemia (principal); E78.5 Hyperlipidemia, unspecified; E03.9 Hypothyroidism, unspecified; E55.9 Vitamin D deficiency, unspecified

== ENCOUNTER → 2023-11-14 | Outpatient (CLI) | payer OTHER, MEDICAID, MEDICARE ==
[2023-11-14 12:44] LABS: CHOLESTEROL RISK RATIO 5.25 (<5); LDL CHOLESTEROL 111.6 MG/DL (<100)
== END ==
LOC: M WUC 10:18
PROVIDERS: ATTEND Nurse Practitioner Family
DX: E78.5 Hyperlipidemia, unspecified (principal)

== ENCOUNTER → 2024-06-16 | Outpatient (CLI) | payer OTHER, MEDICAID ==
[~2024-06-16] MED LIST changes: -ROPI0.2534 PO; +ROPI25TA PO
[2024-06-16 18:55] LABS: HEMOGLOBIN A1c 6.5 % (4.0-6.0)
== END ==
LOC: M WUC 14:29
PROVIDERS: ATTEND Physician Assistant
DX: E11.9 Type 2 diabetes mellitus without complications (principal)

== ENCOUNTER 2024-09-11 20:24 | Emergency (ER) | payer MEDICARE, MEDICAID ==
[~2024-09-11] VITALS: Ht 175.3 cm; Wt 179.6 kg
[2024-09-11 23:26] LABS: BASO # 0.1 10^3/uL (0.0-0.2); BASO % 0.7 % (0.0-1.0); EOS # 0.3 10^3/uL (0.0-0.5); EOS % 3.7 % (0.0-3.0); HEMATOCRIT 45.4 % (42.0-52.0); HEMOGLOBIN 15.1 g/dl (13.5-17.5); LYMPH # 1.5 10^3/uL (1.5-5.0); LYMPH % 19.9 % (24.0-44.0); MEAN CORPUSCULAR HEMOGLOBIN 32.9 pg (27.0-33.0); MEAN CORPUSCULAR HGB CONC 33.3 g/dl (32.0-36.5); MEAN CORPUSCULAR VOLUME 98.9 fl (80.0-96.0); MONO # 0.6 10^3/uL (0.0-0.8); MONO % 8.5 % (2.0-8.0); NEUTROPHILS # 4.9 10^3/uL (1.5-8.5); NEUTROPHILS % 66.7 % (36.0-66.0); PLATELET COUNT, AUTOMATED 199 10^3/uL (150-450); RED BLOOD COUNT 4.59 10^6/uL (4.30-6.10); WHITE BLOOD COUNT 7.4 10^3/uL (4.0-10.0)
[2024-09-11 23:31] LABS: ERYTHROCYTE SEDIMENTATION RATE 38 mm/hr (0-15)
[2024-09-11 23:43] LABS: C REACTIVE PROTEIN QUANTITATIV 2.75 MG/DL (<1.0)
[2024-09-11 23:44] LABS: BLOOD UREA NITROGEN 14 MG/DL (9-23); CALCIUM LEVEL 8.8 MG/DL (8.5-10.1); CARBON DIOXIDE LEVEL 23 MMOL/L (20-31); CHLORIDE LEVEL 110 MMOL/L (98-107); CREATININE FOR GFR 1.09 MG/DL (0.70-1.30); GLOMERULAR FILTRATION RATE > 60.0 (>60); GLUCOSE, FASTING 88 MG/DL (60-100); POTASSIUM SERUM 4.4 MMOL/L (3.5-5.1); SODIUM LEVEL 141 MMOL/L (136-145)
[2024-09-12] MEDS ORDERED: CEPH500C PO (00:29)
[2024-09-12] MEDS: CEPHALEXIN 500 MG CAP PO ONE (00:49)
[2024-09-12 00:53] VITALS: BP 143/86; TEMP 97.1; O2SAT 96
== END 2024-09-12 00:52 | disposition home or self-care (01) ==
LOC: M ED 20:24
DX: L03.116 Cellulitis of left lower limb (principal); E11.9 Type 2 diabetes mellitus without complications; J45.909 Unspecified asthma, uncomplicated; K21.9 Gastro-esophageal reflux disease without esophagitis; G25.81 Restless legs syndrome; Z88.8 Allergy status to other drugs, medicaments and biological substances; Z79.1 Long term (current) use of non-steroidal anti-inflammatories (NSAID); Z79.4 Long term (current) use of insulin; Z79.2 Long term (current) use of antibiotics; Z79.899 Other long term (current) drug therapy

== ENCOUNTER → 2024-11-24 | Outpatient (CLI) | payer MEDICARE, MEDICAID, OTHER ==
[~2024-11-24] MED LIST changes: +CEPH500C PO
== END ==
LOC: M WUC 11:09
PROVIDERS: ATTEND Physician Assistant
DX: J45.30 Mild persistent asthma, uncomplicated (principal)

== ENCOUNTER 2025-01-18 16:16 | Inpatient (IN) | payer MEDICARE, MEDICAID ==
[~2025-01-18] VITALS: Ht 175.3 cm; Wt 173.6 kg
[2025-01-18 17:57] LABS: HEMATOCRIT 44.3 % (42.0-52.0); HEMOGLOBIN 14.9 g/dl (13.5-17.5); MEAN CORPUSCULAR HEMOGLOBIN 32.3 pg (27.0-33.0); MEAN CORPUSCULAR HGB CONC 33.6 g/dl (32.0-36.5); MEAN CORPUSCULAR VOLUME 95.9 fl (80.0-96.0); PLATELET COUNT, AUTOMATED 194 10^3/uL (150-450); RED BLOOD COUNT 4.62 10^6/uL (4.30-6.10); WHITE BLOOD COUNT 7.1 10^3/uL (4.0-10.0)
[2025-01-18 18:09] LABS: AMPHETAMINES LEVEL URINE NEGATIVE (NEGATIVE); BARBITURATES URINE NEGATIVE (NEGATIVE); COCAINE METABOLITE URINE NEGATIVE (NEGATIVE); METHADONE URINE NEGATIVE (NEGATIVE)
[2025-01-18 18:10] LABS: BENZODIAZEPINES URINE NEGATIVE (NEGATIVE); CANNABINOIDS URINE NEGATIVE (NEGATIVE); OPIATES URINE NEGATIVE (NEGATIVE); PHENCYCLIDINE URINE NEGATIVE (NEGATIVE)
[2025-01-18 18:24] LABS: ETHYL ALCOHOL (ETHANOL) < 0.003 % (0.000-0.010)
[2025-01-18 18:25] LABS: SALICYLATE LEVEL < 3.0 MG/DL (<30)
[2025-01-18 18:26] LABS: ALBUMIN 3.4 G/DL (3.2-5.2); ALKALINE PHOSPHATASE 54 U/L (40-129); ALT/SGPT 22 U/L (7.0-40); AST/SGOT 21 U/L (<34); BILIRUBIN,DIRECT 0.2 MG/DL (<0.4); BILIRUBIN,TOTAL 0.6 MG/DL (0.3-1.2); BLOOD UREA NITROGEN 22 MG/DL (9-23); CARBON DIOXIDE LEVEL 26 MMOL/L (20-31); CHLORIDE LEVEL 106 MMOL/L (98-107); CREATININE FOR GFR 1.12 MG/DL (0.70-1.30); GLUCOSE, FASTING 95 MG/DL (60-100); POTASSIUM SERUM 3.7 MMOL/L (3.5-5.1); SODIUM LEVEL 141 MMOL/L (136-145); TOTAL PROTEIN 6.9 G/DL (5.7-8.2)
[2025-01-18 18:28] LABS: THYROID STIMULATING HORMONE 0.935 uIU/ML (0.55-4.78)
[2025-01-18] MEDS ORDERED: TIRZ2.5P INJ (18:57)
[2025-01-18] MEDS ORDERED: QUET100T2 PO (18:57)
[2025-01-18] MEDS ORDERED: LEVO25TA5 PO (18:57)
[2025-01-18] MEDS ORDERED: NAPR-885 PO (18:57)
[2025-01-18] MEDS ORDERED: TOPI-257 PO (18:57)
[2025-01-18] MEDS ORDERED: BREO1INH3 PO (18:57)
[2025-01-18] MEDS ORDERED: ALBU8.5H INH (18:58)
[2025-01-18] MEDS ORDERED: ROPI5TAB19 PO (19:02)
[2025-01-18] MEDS ORDERED: IBUPROFEN 400MG TAB PO PRN (19:05)
[2025-01-18] MEDS ORDERED: HOME MED LIST COMPLETE! XX SCH (19:05)
[2025-01-18] MEDS ORDERED: MAALOX 30 ML SUSP *UDC PO PRN (19:05)
[2025-01-18] MEDS ORDERED: ACETAMINOPHEN 325 MG TAB PO PRN (19:05)
[2025-01-18] MEDS ORDERED: MOM 30ML SUSPENSION UDC PO PRN (19:05)
[2025-01-18] MEDS ORDERED: traZODone 50 MG TAB PO PRN (19:05)
[2025-01-18] MEDS ORDERED: diphenhydrAMINE 25MG CAP PO PRN (19:05)
[2025-01-18] MEDS ORDERED: PROPRANOLOL 10 MG TAB PO PRN (21:55)
[2025-01-18] MEDS ORDERED: ALBUTEROL 90 MCG/ACT 8GM HFA INHALER INH PRN (21:55)
[2025-01-18] MEDS ORDERED: LACTIC ACID 12% LOTION 225 GM BTL TOP PRN (21:55)
[2025-01-19] MEDS: QUEtiapine FUMARATE 100 MG TAB PO SCH ×2 (00:36→20:38)
[2025-01-19] MEDS: TOPIRAMATE (TopAMAX) 100 MG TAB PO SCH (00:36)
[2025-01-19] MEDS: LEVOTHYROXINE 100MCG TABLET (0.1MG) PO SCH (06:02)
[2025-01-19] MEDS: LEVOTHYROXINE 125MCG TABLET (0.125MG) PO SCH (06:03)
[2025-01-19 06:44] VITALS: BP 120/80; TEMP 97; O2SAT 100
[2025-01-19] MEDS: rOPINIRole 0.25 MG TAB(REQUIP) PO SCH (08:26)
[2025-01-19] MEDS: SERTRALINE 100 MG TAB PO SCH (08:27)
[2025-01-19] MEDS: FUROSEMIDE 20 MG TAB PO SCH (08:27)
[2025-01-19] MEDS: metFORMIN (GLUCOPHAGE) 500MG TAB PO SCH (08:27)
[2025-01-19] MEDS: METOPROLOL SUCC *XL* 25MG TAB (TopROL *XL*) PO SCH (08:27)
[2025-01-19] MEDS ORDERED: LEVOTHYROXINE 100MCG TABLET (0.1MG) PO SCH (09:00)
[2025-01-19 15:56] VITALS: BP 146/84; TEMP 97.6; O2SAT 97
[2025-01-19] MEDS ORDERED: GLUCOSE 4 GM CHEW PO PRN (17:15)
[2025-01-19] MEDS ORDERED: GLUCAGON INJ 1MG VIAL SC PRN (17:15)
[2025-01-19] MEDS ORDERED: DEXTROSE 50% 50ML SYRINGE IV PRN (17:15)
[2025-01-19] MEDS: INSULIN LISPRO (NovoLOG) PER UNIT SC SCH ×2 (17:26→20:39)
[2025-01-19] MEDS: ADVAIR HFA 230/21MCG INHALER INH SCH (20:38)
[2025-01-20 06:31] VITALS: BP 132/71; TEMP 97.3; O2SAT 97
[2025-01-20 15:17] VITALS: BP 142/81; TEMP 97.6; O2SAT 95
[2025-01-20] MEDS: metFORMIN (GLUCOPHAGE) 1000MG TABLET PO SCH (17:05)
[2025-01-21 06:39] VITALS: BP 139/85; TEMP 96.8; O2SAT 98
[2025-01-21 13:08] VITALS: BP 136/79
[2025-01-21 15:02] VITALS: BP 144/80; TEMP 97.2; O2SAT 96
[2025-01-21] MEDS: NAPROXEN 250 MG TAB PO PRN (16:31)
[2025-01-22 06:39] VITALS: BP 135/77; TEMP 96.5; O2SAT 96
[2025-01-22 14:49] VITALS: BP 122/69; TEMP 97.5; O2SAT 96
[2025-01-23 06:58] VITALS: BP 117/70; TEMP 97; O2SAT 96
[2025-01-23 16:11] VITALS: BP 126/67; TEMP 97.8; O2SAT 96
[2025-01-24] MEDS ORDERED: HYDR-4570 PO (00:13)
[2025-01-24] MEDS ORDERED: QUET100T2 PO (00:13)
[2025-01-24 06:48] VITALS: BP 127/67; TEMP 97.1; O2SAT 97
[2025-01-24 08:30] VITALS: BP 119/65
== END 2025-01-24 13:00 | disposition home or self-care (01) | DRG 885 ==
LOC: M ED 16:16 → M ED INP 19:02 → M PSY 22:05
PROVIDERS: ADMIT Student in an Organized Health Care Education/Training Program; ATTEND Student in an Organized Health Care Education/Training Program
DX: F33.1 Major depressive disorder, recurrent, moderate (principal); F41.9 Anxiety disorder, unspecified; J45.909 Unspecified asthma, uncomplicated; I10 Essential (primary) hypertension; E11.42 Type 2 diabetes mellitus with diabetic polyneuropathy; E03.9 Hypothyroidism, unspecified; G25.81 Restless legs syndrome; F63.9 Impulse disorder, unspecified; E66.813 Obesity, class 3; I87.8 Other specified disorders of veins; Z79.890 Hormone replacement therapy; Z79.84 Long term (current) use of oral hypoglycemic drugs; Z56.0 Unemployment, unspecified; Z79.899 Other long term (current) drug therapy; Z88.8 Allergy status to other drugs, medicaments and biological substances

== ENCOUNTER → 2025-03-29 | Outpatient (REF) | payer MEDICARE, MEDICAID ==
[~2025-03-29] MED LIST changes: +ALBU8.5H INH; +AMMO12CR4 TOP; -AMMO12CR7 TOP; +BREO1INH3 PO; +HYDR-3364 PO; +LEVO25TA5 PO; +NAPR-885 PO; +ROPI5TAB19 PO; +TIRZ2.5P INJ; +TOPI-257 PO
[2025-03-29 20:04] LABS: CREATININE, URINE 173.9 MG/DL; MALB URINE SIEMENS < 3.0 MG/L
== END ==
LOC: M LAB REF 17:40
PROVIDERS: ATTEND Nurse Practitioner Family
DX: E11.40 Type 2 diabetes mellitus with diabetic neuropathy, unspecified (principal)

== ENCOUNTER → 2025-05-06 | Outpatient (CLI) | payer MEDICARE, MEDICAID | LOC: M RAD 14:03 | PROVIDERS: ATTEND Physician Assistant | DX: R06.02 Shortness of breath (principal); R91.1 Solitary pulmonary nodule ==

== ENCOUNTER → 2025-06-22 | Outpatient (REF) | payer MEDICARE, MEDICAID ==
[2025-06-22 18:34] LABS: BASO # 0.1 10^3/uL (0.0-0.2); BASO % 1.2 % (0.0-1.0); EOS # 0.3 10^3/uL (0.0-0.5); EOS % 3.9 % (0.0-3.0); LYMPH # 1.7 10^3/uL (1.5-5.0); LYMPH % 24.6 % (24.0-44.0); MONO # 0.6 10^3/uL (0.0-0.8); MONO % 8.2 % (2.0-8.0); NEUTROPHILS # 4.2 10^3/uL (1.5-8.5); NEUTROPHILS % 61.7 % (36.0-66.0); PLATELET COUNT, AUTOMATED 213 10^3/uL (150-450)
[2025-06-22 18:37] LABS: ALT/SGPT 34 U/L (7.0-40); AST/SGOT 31 U/L (<34); CALCIUM LEVEL 9.0 MG/DL (8.5-10.1); CARBON DIOXIDE LEVEL 27 MMOL/L (20-31); CHLORIDE LEVEL 103 MMOL/L (98-107); CHOLESTEROL LEVEL 192 MG/DL (<200); CHOLESTEROL RISK RATIO 4.88 (<5); CREATININE FOR GFR 0.99 MG/DL (0.70-1.30); GLOMERULAR FILTRATION RATE > 90.0 (>56); LDL CHOLESTEROL 115.3 MG/DL (<100); NON-HDL-C 152.7 MG/DL; POTASSIUM SERUM 3.9 MMOL/L (3.5-5.1); SODIUM LEVEL 139 MMOL/L (136-145); TRIGLYCERIDES LEVEL 187 MG/DL (<150)
[2025-06-22 19:36] LABS: ESTIMATED AVERAGE GLUCOSE 114.0 MG/DL (60-110)
== END ==
LOC: M LAB REF 17:28
PROVIDERS: ATTEND Physician Assistant
DX: I87.313 Chronic venous hypertension (idiopathic) with ulcer of bilateral lower extremity (principal); L97.822 Non-pressure chronic ulcer of other part of left lower leg with fat layer exposed; Z79.899 Other long term (current) drug therapy